=== PATIENT | female | born 1975 | race Caucasian/White ===

== ENCOUNTER → 2016-11-07 | Outpatient (CLI) | payer BC ==
[~2016-11-07] MED LIST: E-Z-PAQUE 96% w/w SUSP 176GM BTL As Ordered ONE; VARIBAR NECTAR 40% w/v 240ML SUSP BTL As Ordered ONE; VARIBAR PUDDING 40% w/v 230ML TUBE As Ordered ONE
--- NOTE | 2016-11-07 12:25 | REP ---
COOKIE SWALLOW: The procedure was performed under the direct supervision of Dr. Ramos. The procedure was performed with Romi Carvalho from speech pathology present. 5 mL aliquots of nectar, pudding, solid, and thin consistency barium was administrated. There is no evidence of penetration or aspiration. A detailed report of this examination will be provided by speech pathology. 44 seconds of fluoroscopy time was utilized for this procedure. Reviewed by ERICA New 11/07/2016 12:54 PEdited and Signed by Raad Ramos MD 11/07/2016 03:28 P
== END ==
LOC: M ST 07:54
PROVIDERS: ATTEND Internal Medicine
DX: R13.10 Dysphagia, unspecified (principal)
CPT/HCPCS: 74230; 92611; G8996; G8997; G8998

== ENCOUNTER → 2016-11-09 | Outpatient (CLI) | payer OTHER ==
--- NOTE | 2016-11-09 15:23 | REP ---
Chest two views HISTORY: Preoperative Comparison: 11/11/2015 The lungs are clear. The heart is normal in size. The pulmonary vasculature is normal in appearance. The bony structure is intact. IMPRESSION: No acute disease. Signed by Tyrone Gonzalez MD 11/09/2016 03:15 P
[2016-11-09 18:01] LABS: BASO % 0.3 % (0.0-1.0); EOS # 0.1 K/mm3 (0.0-0.50); EOS % 1.8 % (0.0-3.0); LARGE UNSTAINED CELL # 0.2 K/mm3 (0.0-0.4); LARGE UNSTAINED CELL % 3.1 % (0.0-4.0); LYMPH # 2.2 K/mm3 (1.5-4.5); LYMPH % 32.2 % (24.0-44.0); MEAN CORPUSCULAR HEMOGLOBIN 28.5 pg (27.0-33.0); MEAN CORPUSCULAR HGB CONC 33.6 g/dl (32.0-36.5); MEAN CORPUSCULAR VOLUME 84.8 fl (80.0-96.0); MONO # 0.4 K/mm3 (0.0-0.8); MONO % 6.2 % (0.0-5.0); NEUTROPHILS # 3.8 K/mm3 (1.8-7.7); NEUTROPHILS % 56.4 % (36.0-66.0); PLATELET COUNT, AUTOMATED 249 k/mm3 (150-450); RED CELL DISTRIBUTION WIDTH 13.1 % (11.5-14.5); WHITE BLOOD COUNT 6.7 K/mm3 (4.0-10.0)
[2016-11-09 18:08] LABS: ALBUMIN 3.7 GM/DL (3.2-5.2); ALKALINE PHOSPHATASE 93 U/L (45-117); ALT/SGPT 28 U/L (12-78); ANION GAP 10 MEQ/L (8-16); AST/SGOT 23 U/L (15-37); BILIRUBIN,TOTAL 0.7 MG/DL (0.2-1.0); BLOOD UREA NITROGEN 10 MG/DL (7-18); CALCIUM LEVEL 8.7 MG/DL (8.5-10.1); CARBON DIOXIDE LEVEL 27 MEQ/L (21-32); CHLORIDE LEVEL 105 MEQ/L (98-107); CREATININE FOR GFR 0.77 MG/DL (0.55-1.02); GLOMERULAR FILTRATION RATE > 60.0 (>58); GLUCOSE, FASTING 139 MG/DL (70-105); POTASSIUM SERUM 3.7 MEQ/L (3.5-5.1); SODIUM LEVEL 142 MEQ/L (136-145); TOTAL PROTEIN 7.4 GM/DL (6.4-8.2)
[2016-11-09 18:39] LABS: INR 0.95
== END ==
LOC: M LRY 14:05
PROVIDERS: ATTEND Family Medicine
DX: Z01.818 Encounter for other preprocedural examination (principal); R07.89 Other chest pain

== ENCOUNTER → 2017-04-10 | Outpatient (REF) | payer OTHER ==
[2017-04-10 11:49] LABS: BASO % 0.5 % (0.0-1.0); EOS # 0.2 K/mm3 (0.0-0.50); EOS % 2.9 % (0.0-3.0); LARGE UNSTAINED CELL # 0.1 K/mm3 (0.0-0.4); LARGE UNSTAINED CELL % 1.9 % (0.0-4.0); LYMPH # 1.7 K/mm3 (1.5-4.5); LYMPH % 28.9 % (24.0-44.0); MEAN CORPUSCULAR HEMOGLOBIN 29.3 pg (27.0-33.0); MEAN CORPUSCULAR HGB CONC 34.5 g/dl (32.0-36.5); MONO # 0.4 K/mm3 (0.0-0.8); MONO % 7.3 % (0.0-5.0); NEUTROPHILS # 3.3 K/mm3 (1.8-7.7); NEUTROPHILS % 58.6 % (36.0-66.0); PLATELET COUNT, AUTOMATED 211 k/mm3 (150-450); RED CELL DISTRIBUTION WIDTH 13.3 % (11.5-14.5); WHITE BLOOD COUNT 5.6 K/mm3 (4.0-10.0)
[2017-04-10 12:56] LABS: ERYTHROCYTE SEDIMENTATION RATE 22 mm/hr (0-20)
== END ==
LOC: M LABDRAW1 11:32
PROVIDERS: ATTEND Orthopaedic Surgery
DX: M75.01 Adhesive capsulitis of right shoulder (principal)

== ENCOUNTER → 2017-08-09 | Outpatient (CLI) | payer OTHER ==
[2017-08-09 12:58] LABS: BASO % 0.6 % (0.0-1.0); EOS # 0.2 10^3/uL (0.0-0.50); EOS % 3.5 % (0.0-3.0); IMMATURE GRANULOCYTE % 0.2 % (0-0); LYMPH # 1.6 10^3/uL (1.5-4.5); LYMPH % 32.2 % (24.0-44.0); MEAN CORPUSCULAR HEMOGLOBIN 28.2 pg (27.0-33.0); MEAN CORPUSCULAR HGB CONC 33.2 g/dl (32.0-36.5); MEAN CORPUSCULAR VOLUME 84.9 fl (80.0-96.0); MONO # 0.4 10^3/uL (0.0-0.8); MONO % 9.1 % (0.0-5.0); NEUTROPHILS # 2.6 10^3/uL (1.8-7.7); NEUTROPHILS % 54.4 % (36.0-66.0); PLATELET COUNT, AUTOMATED 244 10^3/uL (150-450); RED CELL DISTRIBUTION WIDTH 12.6 % (11.5-14.5); WHITE BLOOD COUNT 4.8 10^3/uL (4.0-10.0)
[2017-08-09 13:50] LABS: ERYTHROCYTE SEDIMENTATION RATE 13 mm/hr (0-20)
== END ==
LOC: M LABDRAW1 11:54
PROVIDERS: ATTEND Orthopaedic Surgery
DX: M75.01 Adhesive capsulitis of right shoulder (principal)

== ENCOUNTER 2018-05-07 10:22 | Day surgery (SDC) | payer OTHER ==
[2018-05-07] MEDS: LR 1,000 ML IV ×2 (11:53)
[2018-05-07] MEDS ORDERED: fentaNYL 100 MCG/2 ML INJECTION (J3010) As Ordered ×4 (12:31→12:37)
[2018-05-07] MEDS ORDERED: MIDAZOLAM INJ 2 MG/2 ML VIAL (J2250) As Ordered ×4 (12:31→12:37)
[2018-05-07] MEDS ORDERED: LIDOCAINE 2% INJ 100 MG/5 ML SDV (FOR ANES.) As Ordered ×2 (12:32)
[2018-05-07] MEDS ORDERED: PROPOFOL 200 MG/20 ML VIAL As Ordered ×2 (12:32)
[2018-05-07] MEDS ORDERED: ROCURONIUM BROMIDE 50 MG/5 ML VIAL As Ordered ×2 (12:32)
[2018-05-07] MEDS: MIDAZOLAM INJ 2 MG/2 ML VIAL (J2250) IV ×4 (13:16→13:20)
[2018-05-07] MEDS: fentaNYL 100 MCG/2 ML INJECTION (J3010) IV ×4 (13:16→13:20)
[2018-05-07] MEDS: EPINEPHrine 1MG/ML INJ 30ML MD-VIAL As Ordered ×2 (14:00)
[2018-05-07] MEDS ORDERED: METOCLOPRAMIDE INJ 10MG/2ML VIAL (J2765) As Ordered ×2 (14:20)
[2018-05-07] MEDS ORDERED: ONDANSETRON 4MG/2ML VIAL (J2405) As Ordered ×4 (14:20→15:20)
[2018-05-07] MEDS ORDERED: dexameTHASONE 4 MG/ML 1ML VIAL (J1100) As Ordered ×2 (14:20)
[2018-05-07] MEDS ORDERED: PHENYLephrine HCL 500 MCG/5 ML (100MCG/ML) SYRINGE (J2370) As Ordered ×2 (14:21)
[2018-05-07] MEDS ORDERED: ePHEDrine SULFATE 25 MG/5 ML(5MG/ML) SYRINGE As Ordered ×2 (14:38)
[2018-05-07] MEDS ORDERED: GLYCOPYRROLATE INJ 0.2 MG/ML 2 ML VIAL As Ordered ×2 (14:59)
[2018-05-07] MEDS ORDERED: NEOSTIGMINE 10 MG/10 ML VIAL (J2710) As Ordered ×2 (14:59)
[2018-05-07] MEDS ORDERED: LR 1,000 ML IV ×2 (15:45)
[2018-05-07] MEDS ORDERED: MORPHINE 4 MG/ML 1ML VIAL/SYRINGE (J2270) IV ×2 (15:45)
[2018-05-07] MEDS ORDERED: NORCO, ANEXSIA 5/325MG TABLET (HYDROcodone/ACETAMINOPHEN) PO ×4 (15:45)
[2018-05-07] MEDS ORDERED: ONDANSETRON 4MG/2ML VIAL (J2405) IV ×2 (16:00)
[2018-05-07] MEDS ORDERED: HYDROMORPHONE HCL 0.5 MG/ 0.5 ML SYRINGE (J1170 PER 1) IV ×4 (16:00→16:15)
== END 2018-05-07 17:35 | disposition home or self-care (01) ==
LOC: M SDC 10:22
DX: M75.01 Adhesive capsulitis of right shoulder (principal); M25.711 Osteophyte, right shoulder (principal); M25.811 Other specified joint disorders, right shoulder; I10 Essential (primary) hypertension; E03.9 Hypothyroidism, unspecified; K20.0 Eosinophilic esophagitis; K21.9 Gastro-esophageal reflux disease without esophagitis; R06.02 Shortness of breath; M12.9 Arthropathy, unspecified; M54.2 Cervicalgia; G43.909 Migraine, unspecified, not intractable, without status migrainosus; R06.83 Snoring; E66.9 Obesity, unspecified; Z68.41 Body mass index [BMI] 40.0-44.9, adult; Z88.5 Allergy status to narcotic agent; Z79.899 Other long term (current) drug therapy; Z86.718 Personal history of other venous thrombosis and embolism; Z90.710 Acquired absence of both cervix and uterus
CPT/HCPCS: 23700

== ENCOUNTER → 2018-11-08 | Outpatient (CLI) | payer OTHER, BC ==
[~2018-11-08] MED LIST changes: -E-Z-PAQUE 96% w/w SUSP 176GM BTL As Ordered ONE; +IBUP-1022 PO; +LEVO100T5 PO; +LEVO88TA3 PO; +METO50TA9 PO; +OMEP40CA2 PO; -VARIBAR NECTAR 40% w/v 240ML SUSP BTL As Ordered ONE; -VARIBAR PUDDING 40% w/v 230ML TUBE As Ordered ONE
--- NOTE | 2018-11-25 01:06 | ECWPNPC ---
PATIENT NAME: SHARAD HARPER : 1975 GENDER: FEMALE VISIT DATE: 11/08/2018 DISCHARGE DATE: 11/08/18 1557 VISIT LOCKED DATE TIME: PHYSICIAN: WALDO IBARRA MD RESOURCE: WALDO IBARRA MD REASON FOR APPOINTMENT 1. W/C (R) SHOULDER HISTORY OF PRESENT ILLNESS HISTORY OF PRESENT ILLNESS: PAIN THE PATIENT DESCRIBES THE PAIN... 43 YEAR OLD FEMALE PATIENT WITH A HISTORY OF CHRONIC RIGHT SHOULDER PAIN. THE PATIENT DESCRIBES THE PAIN ACHING, TENDER, SORE, AND CONTINUOUS WITH A PAIN SCORE OF 8-10/10 DEPENDING ON PHYSICAL ACTIVITY. 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 THE PATIENT SAYS SHE WORKED FOR 2 WEEKS FOLLOWING THE INCIDENT, BUT THEN WAS UNABLE TO CONTINUE DUE TO THE INJURY. THE PATIENT TRIED PHYSICAL THERAPY, BUT SAYS IT DID NOT HELP HER. THE PATIENT HAD SURGERY IN NOVEMBER 2016 AND AGAIN IN APRIL 2018, BUT SAYS HER PAIN PERSISTED. THE PATIENT SAYS THAT SHE HAS EXTREME DIFFICULTIES MOVING HER ARM. THE PATIENT SAYS THAT SHE HAS DIFFICULTY SLEEPING AND HAS TO SLEEP IN A RECLINER DUE TO THIS PAIN. THE PATIENT STATES SHE WAS TAKING HYDROCODONE TO AID IN PAIN RELIEF, BUT IT DID NOT HELP MUCH. PATIENT DENIES UNEXPLAINABLE WEIGHT LOSS, FEVER, CHILLS, NEW CHANGES ON HER URINARY OR BOWEL CONTROL. FALL RISK SCREENING: SCREENING : NO FALLS IN THE PAST YEAR. CURRENT MEDICATIONS TAKING METOPROLOL-HYDROCHLOROTHIAZIDE 50-25 MG TABLET 1 TABLET WITH A MEAL ORALLY ONCE A DAY TAKING LEVOTHYROXINE SODIUM 150 MCG TABLET 1 TABLET ON AN EMPTY STOMACH IN THE MORNING ORALLY ONCE A DAY TAKING OMEPRAZOLE 40 MG CAPSULE DELAYED RELEASE 1 CAPSULE ORALLY BID TAKING CARAFATE 1 GM TABLET 1 TABLET ON AN EMPTY STOMACH ORALLY DAILY TAKING IBU 600 MG TABLET 1 TABLET ORALLY DAILY/PRN NOT-TAKING FUROSEMIDE 20 MG TABLET 1 TABLET ORALLY ONCE A DAY NOT-TAKING DIVALPROEX SODIUM 250 MG TABLET DELAYED RELEASE 1 TABLET ORALLY TWICE A DAY NOT-TAKING CIPRO 500 MG TABLET 1 TABLET 1 HOUR PRIOR TO YOUR PROCEDURE ORALLY ONCE MEDICATION LIST REVIEWED AND RECONCILED WITH THE PATIENT PAST MEDICAL HISTORY SHINGLES MIGRAINE HEADACHES OBESITY ESOPHAGEAL REFLUX HYPOTHYROIDISM OVARIAN CYSTS HYPERLIPIDEMIA ABDOMINAL PAIN ESOPHAGEAL REFLUX HEMATURIA UTI ATYPICAL CP NAUSEA VOMITING BLOOD CLOTS AND KNICKED AORTA WITH HEMORRHAGE WITH C-SECION EOSINOPHILIC ESOPHAGITIS ALLERGIES AUGMENTIN: RASH: ALLERGY OXYCONTIN: SHORTNESS OF BREATH: ALLERGY OXYCODONE HCL: ANAPHYLAXIS: ALLERGY SURGICAL HISTORY ENDOMETRIOSIS -3X ADHESIONS , 12 POLYPS REMOVED ENDOSCOPY 1998 2011 COLONOSCOPY 2012 HYSTERECTOMY 2011 LEFT BUNIONECTOMY 1098 CHOLECYSTECTOMY 2013 ANAL FISURE RIGHT SHOULDER NERVE BLOCK, LAPROSCOPIC REPAIR, CLEANING AND REPAIR 2018 & 2018 FAMILY HISTORY FATHER: ALIVE 65 YRS, DIABETES, DIAGNOSED WITH DIABETES, HYPERTENSION MOTHER: 64 YRS, BREAST CANCER, DIAGNOSED WITH DIABETES, HYPERTENSION, CANCER PATERNAL GRAND FATHER: PATERNAL GRAND MOTHER: 75 YRS, ALZHEIMER'S DEMENTIA MATERNAL GRAND FATHER: ALIVE MATERNAL GRAND MOTHER: 72 YRS, HEART ATTACK 2 BROTHER(S) , 1 SISTER(S) . 2 SON(S) , 1 DAUGHTER(S) . SOCIAL HISTORY GENERAL: TOBACCO USE ARE YOU A:NONSMOKER ARE YOU A:NONSMOKER BMI CARE GOAL FOLLOW-UP ABOVE NORMAL BMI FOLLOW-UPDIETARY MANAGEMENT EDUCATION, GUIDANCE, AND COUNSELING ABOVE NORMAL BMI FOLLOW-UPDIETARY MANAGEMENT EDUCATION, GUIDANCE, AND COUNSELING ALCOHOL SCREENING POINTS: 0, INTERPRETATION: NEGATIVE. RECREATIONAL DRUG USE DENIES. CAFFEINE 1-2/DAY. SEXUAL HX HAD SEX IN THE LAST 12 MONTHS (VAGINAL, ORAL, OR ANAL)?: YES, WITH: MEN ONLY, USE PROTECTION?: NO, HAVE YOU EVER HAD AN STD?: NO. CHURCH NO ALEVISM BELIEFS THAT WOULD IMPACT HEALTH CARE. LANGUAGE UGANDAN. LEARNING BARRIERS / SPECIAL NEEDS CHANGE FROM LAST VISIT?NO BARRIERS TO LEARNING?NO HEARING IMPAIRED?NO VISION IMPAIRED?NO COGNITIVELY IMPAIRED?NO READINESS TO LEARN?YES LEARNING PREFERENCES?NO LEARNING CAPABILITIES PRESENT?YES EMOTIONAL BARRIERS?NO SPECIAL DEVICES?NO SITE DAMAGE PREVENTION TECHNICIAN NEEDED?NO CHANGE FROM LAST VISIT?NO BARRIERS TO LEARNING?NO HEARING IMPAIRED?NO VISION IMPAIRED?NO COGNITIVELY IMPAIRED?NO READINESS TO LEARN?YES LEARNING PREFERENCES?NO LEARNING CAPABILITIES PRESENT?YES EMOTIONAL BARRIERS?NO SPECIAL DEVICES?NO SITE DAMAGE PREVENTION TECHNICIAN NEEDED?NO DOMESTIC VIOLENCE NONE. OCCUPATION: [employer]. DIET: REGULAR. EXERCISE: NO REGULAR EXERCISE. MARITAL STATUS: SINGLE, .. NEW PATIENT PAIN DIARY PATIENT DESCRIBES PAIN :ACHING FROM 0-10, WHAT LEVEL IS YOUR PAIN TODAY?8 PRECIPITATING FACTORS CONSTANT PAIN, TENDER TO TOUCH, DIFFICULTY WITH MOVEMENT, POSITIONING CAUSES PAIN ALLEVIATING FACTORS NOTHING IMPACT ON FUNCTION UNABLE TO USE RIGHT ARM IS THERE A CHANCE YOU COULD BE ?NO HAVE YOU BEEN SICK IN THE LAST WEEK (COLD, COUGH, FEVER, FLU, ETC)YES CURRENT ILLNESS, DIARRHEA AND NAUSEA DO YOU TAKE ANY BLOOD THINNERS?NO DO YOU HAVE ANY RASHES OR OPEN SORES?NO ANY CHANGE IN BOWEL OR BLADDER CONTROL?NO ARE YOU ALLERGIC TO SHELLFISH OR IV DYE?NO ARE YOU DIABETIC?NO DO YOU HAVE A PACEMAKER OR DEFIBRILLATOR?NO ANY NEW PROBLEMS WITH MEDICINES OR NEW ALLERGIESNO ANY NEW PATTERNS OF PAIN OR NUMBNESS?NO ANY CHANGE IN YOUR MEDICAL CONDITION?NO HAVE YOU FALLEN IN THE LAST 6 MONTHS?NO DO YOU USE ANY TYPE OF TOBACCO (SMOKE, SMOKELESS, CHEW, ETC.)NO ARE YOU ABUSED, NEGLECTED, OR IN AN UNSAFE ENVIRONMENT?NO DO YOU HAVE THOUGHTS OF HURTING YOURSELF OR SOMEONE ELSE?NO DO YOU NEED ANY PRESCRIPTIONS?YES PAIN CLINIC PFS, CLERGY, PUBLIC HEALTH REFERRALS WAS THE PROVIDER NOTIFIED OF ANY PERTINENT INFO?YES HAS THE PATIENT BEEN EDUCATED REGARDING HIS/HER PLAN OF CARE?YES HAS THE PATIENT BEEN EDUCATED REGARDING PAIN, THE RISK FOR PAIN, THE IMPORTANCE OF EFFECTIVE PAIN MANAGEMENT, AND THE PAIN ASSESSMENT PROCESS?YES ORIENTED TO PMC ADVANCE DIRECTIVE ADVANCE DIRECTIVE DISCUSSED WITH PATIENT:YES PT DECLINES ANY INFORMATION OR ASSISTANCE AT THIS TIME. DS HOSPITALIZATION/MAJOR DIAGNOSTIC PROCEDURE ABOVE [place]UN[place] & BRANDIE REVIEW OF SYSTEMS REVIEWED BY: PROVIDER: WALDO IBARRA MD . CONSTITUTIONAL: ANY CHANGE IN YOUR MEDICAL CONDITION? NO . CHILLS NO . FEVER NO . INFECTION: DO YOU HAVE NEW INFECTIONS? NO . DO YOU HAVE HISTORY OF MRSA? NO . MUSCULOSKELETAL: ANY NEW PATTERNS OF PAIN OR NUMBNESS? NO . GASTROENTEROLOGY: ANY NEW CHANGE IN BOWEL CONTROL? NO . GENITOURINARY: ANY NEW CHANGE IN BLADDER CONTROL? NO . IS THERE A CHANCE YOU COULD BE ? NO . HEMATOLOGY/LYMPH: DO YOU TAKE ANY BLOOD THINNERS? (FOR EXAMPLE- COUMADIN, PLAVIX, AGGRENOX, PLATEL, PRADAXA, OR XARELTO) NO . WHEN WAS YOUR LAST DOSE? DATE: TIME: . NEUROLOGY: HAVE YOU FALLEN IN THE PAST 12 MONTHS? NO . ANY NEW EXTREMITY NUMBNESS OR WEAKNESS? NO . CARDIOLOGY: DO YOU HAVE A PACEMAKER OR DEFIBRILLATOR? NO . RESPIRATORY: HAVE YOU BEEN SICK IN THE PAST WEEK? NO . FEVER NO . FLU LIKE SYMPTOMS? NO . COUGH NO . INTEGUMENTARY: DO YOU HAVE ANY RASHES OR OPEN SORES? NO . ALLERGIC/IMMUNO: ARE YOU ALLERGIC TO IV DYE? NO . ANY NEW ALLERGIES? NO . PSYCHIATRIC: DO YOU HAVE THOUGHTS OF HURTING YOURSELF OR SOMEONE ELSE? NO . ARE YOU ABUSED, NEGLECTED, OR IN AN UNSAFE ENVIRONMENT? NO . ENDOCRINOLOGY: ARE YOU DIABETIC? NO . OTHER: DO YOU NEED ANY PRESCRIPTIONS? NO . IF YES, PLEASE LIST: ____ . ANY NEW PROBLEMS WITH YOUR MEDICATIONS? NO . WHEN DID YOU LAST EAT? ____ . WHEN DID YOU LAST DRINK? ____ . WHAT DID YOU LAST DRINK? ____ . NAME OF PERSON DRIVING YOU HOME? ____ . DO YOU HAVE ANY OTHER QUESTIONS OR CONCERNS NO . VITAL SIGNS WT 252 LBS, HT 5'3'', BMI 44.63 INDEX, BP 146/85 MM HG, HR 121 /MIN, RR 18 /MIN, TEMP 98.2 F, OXYGEN SAT % 96%, SAFE IN ENV? (Y/N) Y, NA INITIALS NE 13:31, REVIEWED BY: ZENA. EXAMINATION GENERAL EXAMINATION: PATIENT IS ALERT O X 3 AND COOPERATIVE. LUNGS CLEAR, TO AUSCULTATION. HEART: NO MURMURS OR GALLOPS; FACIAL CRANIAL NERVES ARE GROSSLY NORMAL. GOOD SYMMETRY OF FACIAL MUSCLE MOVEMENT. NORMAL VISUAL BYRD. TENDERNESS OVER THE RIGHT SHOULDER AREA. PATIENT CAN ABDUCT THE LEFT ARM WITHOUT DIFFICULTY, BUT IS UNABLE TO ABDUCT THE RIGHT ARM. SWELLING OVER THE RIGHT ARM. RIGHT ARM IS WEAKER AT EXTENSION AND FLEXION. HAND BANK REPRESENTATIVE OVER THE RIGHT SIDE IS REDUCED. X-RAY OF THE RIGHT SHOULDER DONE ON 04/10/2017 SHOWS STATUS POST A DISTAL CLAVICLE EXCISION. 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 HARPER'S PAIN MANAGEMENT CASE. I WOULD LIKE THE PATIENT TO START USING IBUPROFEN 800MG AND GABAPENTIN 100MG 3 TABLETS PER DAY FOR THE NEUROPATHIC PAIN. I WOULD LIKE TO GET THE RESULTS OF THE PATIENT'S RIGHT SHOULDER MRI. THE PATIENT WILL CONSIDER A STELLATE GANGLION BLOCK IN THE FUTURE. THE PATIENT WILL FOLLOW UP IN 6 WEEKS. INSTRUCTIONS WERE GIVEN, QUESTIONS WERE ANSWERED, PATIENT REPORTS UNDERSTANDING AND AGREES WITH THE PLAN. I, SHARAD DOUGLAS, DOCUMENTED THE ABOVE INFORMATION ACTING A SCRIBE FOR DR. IBARRA. I HAVE REVIEWED THE ABOVE DOCUMENT, WRITTEN BY SHARAD HERNÁNDEZ AND I VERIFY THAT IT IS ACCURATE. DEAR DR. ZAMORANO:THANK YOU FOR YOUR KIND REFERRAL OF MRS. HARPER. IF YOU WANT TO DISCUSS HER CASE WITH ME PLEASE CALL ME AT THE PAIN CENTER AT [phone]. SINCERELY,WALDO IBARRA, [facility]. OTHERS START GABAPENTIN CAPSULE, 100 MG, 1 CAPSULE, ORALLY FOR PAIN, THREE TIMES A DAY, 30 DAY(S), 90, REFILLS 1 START IBUPROFEN TABLET, 800 MG, 1 TABLET WITH FOOD OR MILK NEEDED, ORALLY FOR PAIN, EVERY 8 HOURS NEEDED, 30 DAY(S), 50, REFILLS 1 PROCEDURES PN WORKMANS' COMP OPINION IN YOUR OPINION, WAS THE INCIDENT THAT THE PATIENT DESCRIBED THE COMPETENT MEDICAL CAUSE OF THIS INJURY/ILLNESS? YES ARE THE PATIENT'S COMPLAINTS CONSISTENT WITH HIS/HER HISTORY OF THE INJURY/ILLNESS? YES IS THE PATIENT'S HISTORY OF THE INJURY/ILLNESS CONSISTENT WITH YOUR OBJECTIVE FINDING? YES WHAT IS THE PERCENTAGE OF TEMPORARY IMPAIRMENT? MODERATE TO MARKED = 66.7% IS THE PATIENT WORKING? NO DOCTOR ON SITE: WALDO CHÁVEZ MD PREVENTIVE MEDICINE PAIN CLINIC TEACHING: MEDICATIONS MEDICATIONS PRINTOUTS GIVEN AND REVIEWED WITH PT, PT VERBALIZES UNDERSTANDING. 11/08/18 1600 LAS. PROCEDURE CODES FA211 ESTABILISHED PATIENT [facility] FACILITY CHARGE G8427 CURRENT MEDS W/DOSAGES DOCUMENTED G8730 PAIN ASSESS POS TOOL F/U PLAN DOC DISPOSITION & COMMUNICATION FOLLOW UP 6 WEEKS ELECTRONICALLY SIGNED BY WALDO IBARRA MD, MD ON 11/24/2018 AT 01:54 PM EST DISCLAIMER : THIS IS A VISIT SUMMARY EXTRACTED FROM THE [employer] CHART. IT IS NOT A COPY OF THE [employer] PROGRESS NOTE. ARACELI
== END ==
LOC: M PAIN 13:30
PROVIDERS: ATTEND Anesthesiology
DX: G89.29 Other chronic pain (principal); M25.511 Pain in right shoulder; M79.2 Neuralgia and neuritis, unspecified; Z98.890 Other specified postprocedural states; G43.909 Migraine, unspecified, not intractable, without status migrainosus; E66.9 Obesity, unspecified; Z68.41 Body mass index [BMI] 40.0-44.9, adult; K21.9 Gastro-esophageal reflux disease without esophagitis; E03.9 Hypothyroidism, unspecified; E78.5 Hyperlipidemia, unspecified; Z79.899 Other long term (current) drug therapy; Z88.1 Allergy status to other antibiotic agents; Z88.5 Allergy status to narcotic agent

== ENCOUNTER → 2018-12-30 | Outpatient (CLI) | payer OTHER ==
--- NOTE | 2019-01-16 00:54 | ECWPNPC ---
PATIENT NAME: SHARAD HARPER : 1975 GENDER: FEMALE VISIT DATE: 12/30/2018 DISCHARGE DATE: 12/30/18 1220 VISIT LOCKED DATE TIME: PHYSICIAN: WALDO IBARRA MD RESOURCE: WALDO IBARRA MD REASON FOR APPOINTMENT 1. W/C RIGHT SHOULDER HISTORY OF PRESENT ILLNESS HISTORY OF PRESENT ILLNESS: PAIN THE PATIENT DESCRIBES THE PAIN... 43 YEAR OLD FEMALE PATIENT WITH A HISTORY OF CHRONIC RIGHT SHOULDER PAIN. THE PATIENT DESCRIBES THE PAIN ACHING, BURNING, SORE, TENDER, SHARP, STABBING, SHOOTING, AND CONTINUOUS WITH A PAIN SCORE OF 7-10/10 DEPENDING ON PHYSICAL ACTIVITY. 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 THE PATIENT SAYS THE PAIN STARTS IN HER RIGHT SHOULDER AND RADIATES DOWN HER RIGHT ARM. THE PATIENT WAS USING 2 TABLETS OF GABAPENTIN, BUT SAYS THAT IT WAS MAKING HER FEEL DIZZY AND SLEEPY. THE PATIENT IS CURRENTLY USING IBUPROFEN TO AID IN PAIN RELIEF, BUT SAYS IT HAS NOT BEEN HELPING. THE PATIENT HAS TRIED USING CYMBALTA IN THE PAST, BUT REPORTS HAVING ADVERSE SIDE EFFECTS FROM IT. PATIENT DENIES UNEXPLAINABLE WEIGHT LOSS, FEVER, CHILLS, NEW CHANGES ON HER URINARY OR BOWEL CONTROL. FALL RISK SCREENING: SCREENING :NO FALLS REPORTED IN THE LAST YEAR CURRENT MEDICATIONS TAKING GABAPENTIN 100 MG CAPSULE 1 CAPSULE ORALLY FOR PAIN THREE TIMES A DAY, NOTES: HAS BEEN TAKING 2 A DAY BEFORE BED TAKING IBUPROFEN 800 MG TABLET 1 TABLET WITH FOOD OR MILK NEEDED ORALLY FOR PAIN EVERY 8 HOURS NEEDED TAKING METOPROLOL-HYDROCHLOROTHIAZIDE 50-25 MG TABLET 1 TABLET WITH A MEAL ORALLY ONCE A DAY TAKING LEVOTHYROXINE SODIUM 150 MCG TABLET 1 TABLET ON AN EMPTY STOMACH IN THE MORNING ORALLY ONCE A DAY TAKING OMEPRAZOLE 40 MG CAPSULE DELAYED RELEASE 1 CAPSULE ORALLY BID, NOTES: TAKES NEEDED TAKING CARAFATE 1 GM TABLET 1 TABLET ON AN EMPTY STOMACH ORALLY DAILY TAKING IBU 600 MG TABLET 1 TABLET ORALLY DAILY/PRN NOT-TAKING FUROSEMIDE 20 MG TABLET 1 TABLET ORALLY ONCE A DAY NOT-TAKING DIVALPROEX SODIUM 250 MG TABLET DELAYED RELEASE 1 TABLET ORALLY TWICE A DAY NOT-TAKING CIPRO 500 MG TABLET 1 TABLET 1 HOUR PRIOR TO YOUR PROCEDURE ORALLY ONCE MEDICATION LIST REVIEWED AND RECONCILED WITH THE PATIENT PAST MEDICAL HISTORY SHINGLES MIGRAINE HEADACHES OBESITY ESOPHAGEAL REFLUX HYPOTHYROIDISM OVARIAN CYSTS HYPERLIPIDEMIA ABDOMINAL PAIN ESOPHAGEAL REFLUX HEMATURIA UTI ATYPICAL CP NAUSEA VOMITING BLOOD CLOTS AND KNICKED AORTA WITH HEMORRHAGE WITH C-SECION EOSINOPHILIC ESOPHAGITIS ALLERGIES AUGMENTIN: RASH - ALLERGY OXYCONTIN: SHORTNESS OF BREATH - ALLERGY OXYCODONE HCL: ANAPHYLAXIS - ALLERGY SURGICAL HISTORY ENDOMETRIOSIS -3X ADHESIONS , 12 POLYPS REMOVED ENDOSCOPY 1998 2011 COLONOSCOPY 2012 HYSTERECTOMY 2011 LEFT BUNIONECTOMY 1098 CHOLECYSTECTOMY 2014 ANAL FISURE FAMILY HISTORY FATHER: ALIVE 65 YRS, DIABETES, DIAGNOSED WITH DIABETES, HYPERTENSION MOTHER: 64 YRS, BREAST CANCER, CANCER, DIABETES, HYPERTENSION PATERNAL GRAND FATHER: PATERNAL GRAND MOTHER: 75 YRS, ALZHEIMER'S DEMENTIA MATERNAL GRAND FATHER: ALIVE MATERNAL GRAND MOTHER: 72 YRS, HEART ATTACK 2 BROTHER(S) , 1 SISTER(S) . 2 SON(S) , 1 DAUGHTER(S) . SOCIAL HISTORY GENERAL: TOBACCO USE ARE YOU A:NONSMOKER LATEX QUESTIONNAIRE LATEX ALLERGY : HAVE YOU EVER DEVELOPED ANY TYPE OF REACTION AFTER HANDLING LATEX PRODUCTS SUCH RUBBER GLOVES, CONDOMS, DIAPHRAGMS, BALLOONS, SOCKS, OR UNDERWEAR?NO LATEX ALLERGY : HAVE YOU EVER DEVELOPED ANY TYPE OF REACTION DURING OR AFTER DENTAL APPOINTMENT, VAGINAL/RECTAL EXAMINATION, SURGICAL PROCEDURE, OR ANY OTHER EXPOSURE?NO LATEX RISK : HAVE YOU EVER HAD ANY DIFFICULTY BREATHING OR HIVES AFTER EATING OR HANDLING ANY FRUITS, OR VEGETABLES; SUCH KIWI, BANANAS, STONE FRUITS, OR CHESTNUTSNO LATEX RISK : DO YOU HAVE A PREVIOUS PERSONAL HISTORY OF MORE THAN NINE SURGERIES, SPINA BIFIDA, OR REPEATED CATHERTIZATIONS? NO LATEX RISK : ARE YOU FREQUENTLY EXPOSED TO LATEX PRODUCTS IN YOUR OCCUPATION?NO DATE ASKED : 12/30/2018 BMI CARE GOAL FOLLOW-UP ABOVE NORMAL BMI FOLLOW-UPDIETARY MANAGEMENT EDUCATION, GUIDANCE, AND COUNSELING ALCOHOL SCREENING POINTS: 0, INTERPRETATION: NEGATIVE. RECREATIONAL DRUG USE DENIES. CAFFEINE 1-2/DAY. SEXUAL HX HAD SEX IN THE LAST 12 MONTHS (VAGINAL, ORAL, OR ANAL)?: YES, WITH: MEN ONLY, USE PROTECTION?: NO, HAVE YOU EVER HAD AN STD?: NO. RESTORATIONISM NO EPISCOPAL BELIEFS THAT WOULD IMPACT HEALTH CARE. LANGUAGE PAKISTANI. LEARNING BARRIERS / SPECIAL NEEDS CHANGE FROM LAST VISIT?NO BARRIERS TO LEARNING?NO HEARING IMPAIRED?NO VISION IMPAIRED?NO COGNITIVELY IMPAIRED?NO READINESS TO LEARN?YES LEARNING PREFERENCES?NO LEARNING CAPABILITIES PRESENT?YES EMOTIONAL BARRIERS?NO SPECIAL DEVICES?NO SYSTEMS LIBRARIAN NEEDED?NO DOMESTIC VIOLENCE NONE. OCCUPATION: [employer]. DIET: REGULAR. EXERCISE: NO REGULAR EXERCISE. MARITAL STATUS: SINGLE, .. PAIN CLINIC PFS, CLERGY, PUBLIC HEALTH REFERRALS WAS THE PROVIDER NOTIFIED OF ANY PERTINENT INFO?YES HAS THE PATIENT BEEN EDUCATED REGARDING HIS/HER PLAN OF CARE?YES HAS THE PATIENT BEEN EDUCATED REGARDING PAIN, THE RISK FOR PAIN, THE IMPORTANCE OF EFFECTIVE PAIN MANAGEMENT, AND THE PAIN ASSESSMENT PROCESS?YES ORIENTED TO PMC ADVANCE DIRECTIVE ADVANCE DIRECTIVE DISCUSSED WITH PATIENT:YES PT DECLINES ANY INFORMATION OR ASSISTANCE AT THIS TIME. 12/30/18 REVIEWED WITH PT 12/30/18 1041 BV. HOSPITALIZATION/MAJOR DIAGNOSTIC PROCEDURE ABOVE [place] & [place] REVIEW OF SYSTEMS REVIEWED BY: PROVIDER: WALDO IBARRA MD . CONSTITUTIONAL: ANY CHANGE IN YOUR MEDICAL CONDITION? NO . CHILLS NO . FEVER NO . INFECTION: DO YOU HAVE NEW INFECTIONS? NO . DO YOU HAVE HISTORY OF MRSA? NO . MUSCULOSKELETAL: ANY NEW PATTERNS OF PAIN OR NUMBNESS? NO . GASTROENTEROLOGY: ANY NEW CHANGE IN BOWEL CONTROL? NO . GENITOURINARY: ANY NEW CHANGE IN BLADDER CONTROL? NO . IS THERE A CHANCE YOU COULD BE ? NO . HEMATOLOGY/LYMPH: DO YOU TAKE ANY BLOOD THINNERS? (FOR EXAMPLE- COUMADIN, PLAVIX, AGGRENOX, PLATEL, PRADAXA, OR XARELTO) NO . WHEN WAS YOUR LAST DOSE? DATE: TIME: . NEUROLOGY: HAVE YOU FALLEN IN THE PAST 12 MONTHS? NO . ANY NEW EXTREMITY NUMBNESS OR WEAKNESS? NO . CARDIOLOGY: DO YOU HAVE A PACEMAKER OR DEFIBRILLATOR? NO . RESPIRATORY: HAVE YOU BEEN SICK IN THE PAST WEEK? NO . FEVER NO . FLU LIKE SYMPTOMS? NO . COUGH NO . INTEGUMENTARY: DO YOU HAVE ANY RASHES OR OPEN SORES? NO . ALLERGIC/IMMUNO: ARE YOU ALLERGIC TO IV DYE? NO . ANY NEW ALLERGIES? NO . PSYCHIATRIC: DO YOU HAVE THOUGHTS OF HURTING YOURSELF OR SOMEONE ELSE? NO . ARE YOU ABUSED, NEGLECTED, OR IN AN UNSAFE ENVIRONMENT? NO . ENDOCRINOLOGY: ARE YOU DIABETIC? NO . OTHER: DO YOU NEED ANY PRESCRIPTIONS? YES, GABAPENTIN . IF YES, PLEASE LIST: ____ . ANY NEW PROBLEMS WITH YOUR MEDICATIONS? NO . WHEN DID YOU LAST EAT? ____ . WHEN DID YOU LAST DRINK? ____ . WHAT DID YOU LAST DRINK? ____ . NAME OF PERSON DRIVING YOU HOME? ____ . DO YOU HAVE ANY OTHER QUESTIONS OR CONCERNS YES, PT STATES SINCE STARTING THE GABAPENTIN, SHE HAS HAS NOTICED INCREASED FATIGUE THAT LASTS THE WHOLE DAY. . VITAL SIGNS WT 255.8 LBS, HT 5'3'', BMI 45.31 INDEX, BP 136/64 MM HG, HR 72 /MIN, RR 18 /MIN, TEMP 98.7 F, OXYGEN SAT % 97%, NA INITIALS SC 10:27, REVIEWED BY: BV. EXAMINATION GENERAL EXAMINATION: PATIENT IS ALERT O X 3 AND COOPERATIVE. TENDERNESS OVER THE RIGHT SHOULDER. PATIENT CAN ABDUCT THE RIGHT ARM TO 15 DEGREES. HAND COMMUNITY COORDINATOR OVER THE RIGHT SIDE IS REDUCED. RIGHT ARM IS WEAKER AT EXTENSION AND FLEXION. 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 HARPER'S PAIN MANAGEMENT CASE. I WILL DECREASE THE PATIENT'S GABAPENTIN TO ONE TABLET AT NIGHT FOR THE NEUROPATHIC PAIN. THE PATIENT WILL START USING DICLOFENAC IN PLACE OF THE IBUPROFEN BECAUSE SHE SAYS IT HAS NOT BEEN HELPING HER. I WILL SEND THE PROVIDER TO PROVIDER AGREEMENT TO THE PATIENT'S PRIMARY CARE IN REGARDS TO PRESCRIBING NARCOTICS. THE PATIENT EXPRESSED INTEREST IN A DCS TRIAL, SO I WILL REQUEST A PSYCHOLOGICAL EVALUATION. THE PATIENT WILL FOLLOW UP IN 6 WEEKS. I WAS WITH THE PATIENT FOR OVER 25 MINUTES AND MORE THAN HALF OF THE TIME WAS SPENT DISCUSSING THE PATIENT'S OPTIONS FOR MEDICATION MANAGEMENT AND A POSSIBLE DCS TRIAL. INSTRUCTIONS WERE GIVEN, QUESTIONS WERE ANSWERED, PATIENT REPORTS UNDERSTANDING AND AGREES WITH THE PLAN. I, SHARAD DOUGLAS, DOCUMENTED THE ABOVE INFORMATION ACTING A SCRIBE FOR DR. BIARRA. I HAVE REVIEWED THE ABOVE DOCUMENT, WRITTEN BY SHARAD HERNÁNDEZ AND I VERIFY THAT IT IS ACCURATE. . OTHERS START DICLOFENAC SODIUM TABLET DELAYED RELEASE, 75 MG, 1 TABLET WITH FOOD OR MILK, ORALLY PRN FOR PAIN, TWICE A DAY MDD2, 30 DAY(S), 60, REFILLS 1 PROCEDURES PN WORKMANS' COMP OPINION IN YOUR OPINION, WAS THE INCIDENT THAT THE PATIENT DESCRIBED THE COMPETENT MEDICAL CAUSE OF THIS INJURY/ILLNESS? YES ARE THE PATIENT'S COMPLAINTS CONSISTENT WITH HIS/HER HISTORY OF THE INJURY/ILLNESS? YES IS THE PATIENT'S HISTORY OF THE INJURY/ILLNESS CONSISTENT WITH YOUR OBJECTIVE FINDING? YES WHAT IS THE PERCENTAGE OF TEMPORARY IMPAIRMENT? MODERATE TO MARKED = 66.7% IS THE PATIENT WORKING? NO DOCTOR ON SITE: WALDO CHÁVEZ MD PREVENTIVE MEDICINE PAIN CLINIC TEACHING: MEDICATIONS PRINTED AND REVIEWED INFORMATION ON NEW MEDICATION, DICLOFENAC, WITH PATIENT. PATIENT VERBALIZED AN UNDERSTANDING. RAVI BLANCO 12/30/2018 12:20:08 PM > . PROCEDURE CODES FA211 ESTABILISHED PATIENT [facility] CHARGE G8427 CURRENT MEDS W/DOSAGES DOCUMENTED G8730 PAIN ASSESS POS TOOL F/U PLAN DOC DISPOSITION & COMMUNICATION FOLLOW UP 6 WEEKS ELECTRONICALLY SIGNED BY WALDO IBARRA MD, MD ON 01/14/2019 AT 01:44 PM EDT DISCLAIMER : THIS IS A VISIT SUMMARY EXTRACTED FROM THE [email or web address] CHART. IT IS NOT A COPY OF THE [employer] PROGRESS NOTE. [email or web address]
== END ==
LOC: M PAIN 10:00
PROVIDERS: ATTEND Anesthesiology
DX: M25.511 Pain in right shoulder (principal); G89.29 Other chronic pain; M79.2 Neuralgia and neuritis, unspecified; G43.909 Migraine, unspecified, not intractable, without status migrainosus; K21.9 Gastro-esophageal reflux disease without esophagitis; E03.9 Hypothyroidism, unspecified; E78.5 Hyperlipidemia, unspecified; E66.01 Morbid (severe) obesity due to excess calories; Z68.42 Body mass index [BMI] 45.0-49.9, adult; Z79.899 Other long term (current) drug therapy; Z88.1 Allergy status to other antibiotic agents; Z88.5 Allergy status to narcotic agent

== ENCOUNTER → 2019-03-10 | Outpatient (CLI) | payer OTHER ==
--- NOTE | 2019-03-15 00:34 | ECWPNPC ---
PATIENT NAME: SHARAD HARPER : 1975 GENDER: FEMALE VISIT DATE: 03/10/2019 DISCHARGE DATE: 03/10/19 1132 VISIT LOCKED DATE TIME: PHYSICIAN: WALDO IBARRA MD RESOURCE: WALDO IBARRA MD REASON FOR APPOINTMENT 1. W/C RIGHT SHOULDER PAIN, DCS HISTORY OF PRESENT ILLNESS HISTORY OF PRESENT ILLNESS: 43 YEAR OLD FEMALE PATIENT WITH A HISTORY OF CHRONIC RIGHT SHOULDER PAIN. THE PATIENT DESCRIBES THE PAIN ACHING, BURNING, STABBING, SHOOTING, SORE, TENDER, SHARP, AND CONTINUOUS WITH A PAIN SCORE OF 8-10/10 DEPENDING ON PHYSICAL ACTIVITY. 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 THE PATIENT STATES THE PAIN BEGINS IN HER RIGHT SHOULDER AND RADIATES DOWN HER RIGHT ARM AND SHE STILL EXPERIENCES NUMBNESS DOWN THE BACK OF HER ARM. THE PATIENT SAYS THE PAIN IS AFFECTING HER ABILITY TO PERFORM HER DAILY ACTIVITIES SUCH COOKING, GROCERY SHOPPING, AND CLEANING HER HOUSE. THE PATIENT STATES SHE HAS TRIED PHYSICAL THERAPY FOR 4 YEARS, HAS TRIED A TENS UNIT, AND HAS HAD 2 SHOULDER SURGERIES IN THE PAST, HOWEVER ALL OPTIONS DID NOT HELP HER. THE PATIENT HAS TRIED CYMBALTA, WHICH SHE SAYS WAS NOT GOOD FOR HER. THE PATIENT SAYS SHE USES GABAPENTIN 100 MG 3 TABLETS DAILY, HOWEVER SHE IS EXPERIENCING GROGGINESS DURING THE DAY. THE PATIENT SAYS SHE USES IBUPROFEN IT HELPS TAKE THE EDGE OFF FOR HER HEADACHES. PATIENT DENIES UNEXPLAINABLE WEIGHT LOSS, FEVER, CHILLS, NEW CHANGES ON HER URINARY OR BOWEL CONTROL. FALL RISK SCREENING: SCREENING :NO FALLS REPORTED IN THE LAST YEAR CURRENT MEDICATIONS TAKING DICLOFENAC SODIUM 75 MG TABLET DELAYED RELEASE 1 TABLET WITH FOOD OR MILK ORALLY PRN FOR PAIN TWICE A DAY MDD2 TAKING IBUPROFEN 800 MG TABLET 1 TABLET WITH FOOD OR MILK NEEDED ORALLY FOR PAIN EVERY 8 HOURS NEEDED TAKING METOPROLOL-HYDROCHLOROTHIAZIDE 50-25 MG TABLET 1 TABLET WITH A MEAL ORALLY ONCE A DAY TAKING LEVOTHYROXINE SODIUM 150 MCG TABLET 1 TABLET ON AN EMPTY STOMACH IN THE MORNING ORALLY ONCE A DAY TAKING OMEPRAZOLE 40 MG CAPSULE DELAYED RELEASE 1 CAPSULE ORALLY BID, NOTES: TAKES NEEDED TAKING CARAFATE 1 GM TABLET 1 TABLET ON AN EMPTY STOMACH ORALLY DAILY TAKING GABAPENTIN 100 MG CAPSULE 1 CAPSULE ORALLY FOR PAIN THREE TIMES A DAY, NOTES: TAKING DAILY NOT-TAKING IBU 600 MG TABLET 1 TABLET ORALLY DAILY/PRN NOT-TAKING FUROSEMIDE 20 MG TABLET 1 TABLET ORALLY ONCE A DAY NOT-TAKING DIVALPROEX SODIUM 250 MG TABLET DELAYED RELEASE 1 TABLET ORALLY TWICE A DAY NOT-TAKING CIPRO 500 MG TABLET 1 TABLET 1 HOUR PRIOR TO YOUR PROCEDURE ORALLY ONCE MEDICATION LIST REVIEWED AND RECONCILED WITH THE PATIENT PAST MEDICAL HISTORY SHINGLES MIGRAINE HEADACHES OBESITY ESOPHAGEAL REFLUX HYPOTHYROIDISM OVARIAN CYSTS HYPERLIPIDEMIA ABDOMINAL PAIN ESOPHAGEAL REFLUX HEMATURIA UTI ATYPICAL CP NAUSEA VOMITING BLOOD CLOTS AND KNICKED AORTA WITH HEMORRHAGE WITH C-SECION EOSINOPHILIC ESOPHAGITIS ALLERGIES AUGMENTIN: RASH - ALLERGY OXYCONTIN: SHORTNESS OF BREATH - ALLERGY OXYCODONE HCL: ANAPHYLAXIS - ALLERGY SURGICAL HISTORY ENDOMETRIOSIS -3X ADHESIONS , 12 POLYPS REMOVED ENDOSCOPY 1998 2011 COLONOSCOPY 2012 HYSTERECTOMY 2011 LEFT BUNIONECTOMY 1098 CHOLECYSTECTOMY 2013 ANAL FISURE FAMILY HISTORY FATHER: ALIVE 65 YRS, DIABETES, DIAGNOSED WITH HYPERTENSION, DIABETES MOTHER: 64 YRS, BREAST CANCER, CANCER, DIABETES, HYPERTENSION PATERNAL GRAND FATHER: PATERNAL GRAND MOTHER: 75 YRS, ALZHEIMER'S DEMENTIA MATERNAL GRAND FATHER: ALIVE MATERNAL GRAND MOTHER: 72 YRS, HEART ATTACK 2 BROTHER(S) , 1 SISTER(S) . 2 SON(S) , 1 DAUGHTER(S) . SOCIAL HISTORY GENERAL: TOBACCO USE ARE YOU A:NONSMOKER DIET: REGULAR. LANGUAGE CITIZEN OF [place]. DOMESTIC VIOLENCE NONE. BMI CARE GOAL FOLLOW-UP ABOVE NORMAL BMI FOLLOW-UPDIETARY MANAGEMENT EDUCATION, GUIDANCE, AND COUNSELING RECREATIONAL DRUG USE DENIES. EXERCISE: NO REGULAR EXERCISE. LEARNING BARRIERS / SPECIAL NEEDS CHANGE FROM LAST VISIT?NO BARRIERS TO LEARNING?NO HEARING IMPAIRED?NO VISION IMPAIRED?NO COGNITIVELY IMPAIRED?NO READINESS TO LEARN?YES LEARNING PREFERENCES?NO LEARNING CAPABILITIES PRESENT?YES EMOTIONAL BARRIERS?NO SPECIAL DEVICES?NO JANITORIAL ACCOUNT MANAGER NEEDED?NO PAIN CLINIC PFS, CLERGY, PUBLIC HEALTH REFERRALS WAS THE PROVIDER NOTIFIED OF ANY PERTINENT INFO?YES HAS THE PATIENT BEEN EDUCATED REGARDING HIS/HER PLAN OF CARE?YES HAS THE PATIENT BEEN EDUCATED REGARDING PAIN, THE RISK FOR PAIN, THE IMPORTANCE OF EFFECTIVE PAIN MANAGEMENT, AND THE PAIN ASSESSMENT PROCESS?YES ORIENTED TO [facility] LATEX QUESTIONNAIRE LATEX ALLERGY : HAVE YOU EVER DEVELOPED ANY TYPE OF REACTION AFTER HANDLING LATEX PRODUCTS SUCH RUBBER GLOVES, CONDOMS, DIAPHRAGMS, BALLOONS, SOCKS, OR UNDERWEAR?NO LATEX ALLERGY : HAVE YOU EVER DEVELOPED ANY TYPE OF REACTION DURING OR AFTER DENTAL APPOINTMENT, VAGINAL/RECTAL EXAMINATION, SURGICAL PROCEDURE, OR ANY OTHER EXPOSURE?NO DATE ASKED : 12/30/2018 LATEX RISK : HAVE YOU EVER HAD ANY DIFFICULTY BREATHING OR HIVES AFTER EATING OR HANDLING ANY FRUITS, OR VEGETABLES; SUCH KIWI, BANANAS, STONE FRUITS, OR CHESTNUTSNO LATEX RISK : DO YOU HAVE A PREVIOUS PERSONAL HISTORY OF MORE THAN NINE SURGERIES, SPINA BIFIDA, OR REPEATED CATHERTIZATIONS? NO LATEX RISK : ARE YOU FREQUENTLY EXPOSED TO LATEX PRODUCTS IN YOUR OCCUPATION?NO CAFFEINE 1-2/DAY. ADVANCE DIRECTIVE ADVANCE DIRECTIVE DISCUSSED WITH PATIENT:YES PT DECLINES ANY INFORMATION OR ASSISTANCE AT THIS TIME 03/09/2019 EPISCOPAL NO SAMARITAN BELIEFS THAT WOULD IMPACT HEALTH CARE. MARITAL STATUS: SINGLE, .. ALCOHOL SCREENING POINTS: 0, INTERPRETATION: NEGATIVE. OCCUPATION: [employer] IN[employer]. SEXUAL HX HAD SEX IN THE LAST 12 MONTHS (VAGINAL, ORAL, OR ANAL)?: YES, WITH: MEN ONLY, USE PROTECTION?: NO, HAVE YOU EVER HAD AN STD?: NO. REVIEWED WITH PT 03/12/2019 NM. HOSPITALIZATION/MAJOR DIAGNOSTIC PROCEDURE ABOVE [place] REVIEW OF SYSTEMS REVIEWED BY: PROVIDER: WALDO IBARRA MD . CONSTITUTIONAL: ANY CHANGE IN YOUR MEDICAL CONDITION? NO . CHILLS NO . FEVER NO . INFECTION: DO YOU HAVE NEW INFECTIONS? NO . DO YOU HAVE HISTORY OF MRSA? NO . MUSCULOSKELETAL: ANY NEW PATTERNS OF PAIN OR NUMBNESS? NO . GASTROENTEROLOGY: ANY NEW CHANGE IN BOWEL CONTROL? NO . GENITOURINARY: ANY NEW CHANGE IN BLADDER CONTROL? NO . IS THERE A CHANCE YOU COULD BE ? NO . HEMATOLOGY/LYMPH: DO YOU TAKE ANY BLOOD THINNERS? (FOR EXAMPLE- COUMADIN, PLAVIX, AGGRENOX, PLATEL, PRADAXA, OR XARELTO) NO . WHEN WAS YOUR LAST DOSE? DATE: TIME: . NEUROLOGY: HAVE YOU FALLEN IN THE PAST 12 MONTHS? NO . ANY NEW EXTREMITY NUMBNESS OR WEAKNESS? NO . CARDIOLOGY: DO YOU HAVE A PACEMAKER OR DEFIBRILLATOR? NO . RESPIRATORY: HAVE YOU BEEN SICK IN THE PAST WEEK? NO . FEVER NO . FLU LIKE SYMPTOMS? NO . COUGH NO . INTEGUMENTARY: DO YOU HAVE ANY RASHES OR OPEN SORES? NO . ALLERGIC/IMMUNO: ARE YOU ALLERGIC TO IV DYE? NO . ANY NEW ALLERGIES? NO . PSYCHIATRIC: DO YOU HAVE THOUGHTS OF HURTING YOURSELF OR SOMEONE ELSE? NO . ARE YOU ABUSED, NEGLECTED, OR IN AN UNSAFE ENVIRONMENT? NO . ENDOCRINOLOGY: ARE YOU DIABETIC? NO . OTHER: DO YOU NEED ANY PRESCRIPTIONS? NO . IF YES, PLEASE LIST: ____ . ANY NEW PROBLEMS WITH YOUR MEDICATIONS? NO . WHEN DID YOU LAST EAT? ____ . WHEN DID YOU LAST DRINK? ____ . WHAT DID YOU LAST DRINK? ____ . NAME OF PERSON DRIVING YOU HOME? ____ . DO YOU HAVE ANY OTHER QUESTIONS OR CONCERNS YES, PATIENT NEEDS DOCUMENTATION SPECIFYING HOW AND WHY A DCS WOULD HELP HER SHOULDER PAIN AND BENEFIT HER. IT ALSO NEEDS THE DOCUMENTATION TO EXPLAIN THAT THE PHYSCH EVAL, MRI, ETC ARE ALL MANDATORY PARTS OF THE DCS PROCESS . VITAL SIGNS WT 250.8 LBS, HT 5'3'', BMI 44.42 INDEX, BP 145/66 MM HG, HR 87 /MIN, RR 18 /MIN, TEMP 98.2 F, OXYGEN SAT % 96%, SAFE IN ENV? (Y/N) YES, NA INITIALS AW 0946, REVIEWED BY: MARY JO. EXAMINATION GENERAL EXAMINATION: PATIENT IS ALERT O X 3 AND COOPERATIVE. PATIENT CANNOT ABDUCT RIGHT SHOULDER, BUT NO DIFFICULTY ABDUCTING LEFT SHOULDER. HYPERPATHIA OVER THE RIGHT SHOULDER. 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 HARPER'S PAIN MANAGEMENT CASE. DUE TO THE UNSUCCESSFUL ATTEMPTS OF RELIEVING THE PATIENT'S RIGHT SHOULDER AND ARM PAIN THROUGH PHYSICAL THERAPY, TWO SHOULDER SURGERIES, AND NUMEROUS MEDICATIONS, I WOULD LIKE THE PATIENT TO MOVE FORWARD WITH A DCS TRIAL. I WOULD LIKE TO PERFORM THE DCS TRIAL TO DETERMINE IF THE IMPLANT WILL BE A GOOD TREATMENT OPTION FOR TREATING THE PATIENTS PAIN IN HER RIGHT SHOULDER. I FEEL THAT THE PATIENT WILL BE A GOOD CANDIDATE FOR THE DCS IMPLANT. IN ORDER TO PROCEED WITH THE TRIAL, THE PATIENT WILL NEED TO HAVE A PSYCHOLOGICAL EVALUATION DONE TO MAKE SURE SHE IS A GOOD CANDIDATE AND CAN TOLERATE AN IMPLANTED DEVICE. I AM REQUESTING THAT THE PATIENT HAVE A PSYCHOLOGICAL EVALUATION DONE FIRST TO START THE PROCESS OF THE DCS TRIAL. AFTER THE PSYCHOLOGICAL EVALUATION IS DONE AND THE PATIENT IS A CANDIDATE TO CONTINUE WITH THE DCS TRIAL, THE PATIENT WILL NEED TO HAVE A CERVICAL, THORACIC, AND LUMBAR MRI PERFORMED TO MAKE SURE THERE IS ADEQUATE SPACE FOR THE DCS CABLES TO PASS THROUGH. THE PATIENT WILL FOLLOW UP IN 2 MONTHS TO REVIEW THE PSYCHOLOGICAL EVALUATION RESULTS AND PROCEED WITH THE NEXT STEPS OF THE DCS TRIAL REQUIREMENTS. INSTRUCTIONS WERE GIVEN, QUESTIONS WERE ANSWERED, PATIENT REPORTS UNDERSTANDING AND AGREES WITH THE PLAN. I, URSULA VELÁSQUEZ, DOCUMENTED THE ABOVE INFORMATION ACTING A SCRIBE FOR DR. IBARRA. I HAVE REVIEWED THE ABOVE DOCUMENT, WRITTEN BY URSULA VELÁSQUEZ SCRIBPepe AND I VERIFY THAT IT IS ACCURATE. . PROCEDURES PN WORKMANS' COMP OPINION IN YOUR OPINION, WAS THE INCIDENT THAT THE PATIENT DESCRIBED THE COMPETENT MEDICAL CAUSE OF THIS INJURY/ILLNESS? YES ARE THE PATIENT'S COMPLAINTS CONSISTENT WITH HIS/HER HISTORY OF THE INJURY/ILLNESS? YES IS THE PATIENT'S HISTORY OF THE INJURY/ILLNESS CONSISTENT WITH YOUR OBJECTIVE FINDING? YES WHAT IS THE PERCENTAGE OF TEMPORARY IMPAIRMENT? MODERATE TO MARKED = 66.7% IS THE PATIENT WORKING? NO DOCTOR ON SITE: WALDO CHÁVEZ MD PROCEDURE CODES FA211 ESTABILISHED PATIENT [facility] FACILITY CHARGE G8427 CURRENT MEDS W/DOSAGES DOCUMENTED G8730 PAIN ASSESS POS TOOL F/U PLAN DOC DISPOSITION & COMMUNICATION FOLLOW UP 2 MONTHS (REASON: DCS TRIAL RQSTING) ELECTRONICALLY SIGNED BY WALDO IBARRA MD, MD ON 03/14/2019 AT 04:43 PM EDT DISCLAIMER : THIS IS A VISIT SUMMARY EXTRACTED FROM THE [employer] CHART. IT IS NOT A COPY OF THE [employer] PROGRESS NOTE. ARACELI
== END ==
LOC: M PAIN 10:15
PROVIDERS: ATTEND Anesthesiology
DX: M25.511 Pain in right shoulder (principal); G89.29 Other chronic pain; M79.2 Neuralgia and neuritis, unspecified; Z79.899 Other long term (current) drug therapy; Z88.5 Allergy status to narcotic agent; Z88.8 Allergy status to other drugs, medicaments and biological substances

== ENCOUNTER → 2019-04-28 | Outpatient (CLI) | payer OTHER ==
--- NOTE | 2019-05-07 01:29 | ECWPNPC ---
PATIENT NAME: SHARAD HARPER : 1975 GENDER: FEMALE VISIT DATE: 04/28/2019 DISCHARGE DATE: 04/28/19 1622 VISIT LOCKED DATE TIME: PHYSICIAN: WALDO IBARRA MD RESOURCE: WALDO IBARRA MD REASON FOR APPOINTMENT 1. 2 MONTHS HISTORY OF PRESENT ILLNESS HISTORY OF PRESENT ILLNESS: PAIN THE PATIENT DESCRIBES THE PAIN... 43 YEAR OLD FEMALE PATIENT WITH A HISTORY OF CHRONIC RIGHT SHOULDER PAIN. THE PATIENT DESCRIBES THE PAIN ACHING, BURNING, STABBING, SHOOTING, SHARP, SORE, TENDER, DAILY, AND CONTINUOUS WITH A PAIN SCORE OF 8-10/10 DEPENDING ON PHYSICAL ACTIVITY. 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 THE PATIENT STATES SHE EXPERIENCED PAIN, SWELLING, AND NUMBNESS DOWN HER ARM AND COULD NOT BEND HER FINGERS AFTER HER SHOULDER INJURY. THE PATIENT STATES HER PAIN BEGINS IN HER RIGHT SHOULDER AND RADIATES DOWN HER RIGHT ARM. THE PATIENT SAYS HER SHOULDER PAIN IS VERY PAINFUL AND SHE OFTEN CRIES OUT IN PAIN. THE PATIENT SAYS HER PAIN IS AFFECTING HER ABILITY TO PERFORM HER DAILY ACTIVITIES SUCH CLEANING, GROCERY SHOPPING, COOKING, AND USING HER RIGHT ARM. THE PATIENT SAYS SHE HAS TRIED PHYSICAL THERAPY AND HAD 2 SHOULDER SURGERIES DONE IN THE PAST, YET THE PAIN PERSISTS. THE PATIENT STATES SHE IS USING GABAPENTIN 100 MG 1 TABLET AT NIGHT, BECAUSE SHE CANNOT FUNCTION WITH A HIGHER DOSE DURING THE DAY. THE PATIENT SAYS SHE HAS TRIED DICLOFENAC 75 MG, BUT IT DID NOT HELP WITH HER PAIN SO SHE IS NOW BACK TO USING IBUPROFEN. THE PATIENT MENTIONS SHE HAS A HISTORY OF EOSINOPHILIC ESOPHAGITIS. PATIENT DENIES UNEXPLAINABLE WEIGHT LOSS, FEVER, CHILLS. PATIENT REPORTS PRESENT URINARY AND BOWEL INCONTINENCE FOR OVER 1 YEAR. FALL RISK SCREENING: SCREENING :NO FALLS REPORTED IN THE LAST YEAR CURRENT MEDICATIONS TAKING DICLOFENAC SODIUM 75 MG TABLET DELAYED RELEASE 1 TABLET WITH FOOD OR MILK ORALLY PRN FOR PAIN TWICE A DAY MDD2 TAKING IBUPROFEN 800 MG TABLET 1 TABLET WITH FOOD OR MILK NEEDED ORALLY FOR PAIN EVERY 8 HOURS NEEDED TAKING METOPROLOL-HYDROCHLOROTHIAZIDE 50-25 MG TABLET 1 TABLET WITH A MEAL ORALLY ONCE A DAY TAKING LEVOTHYROXINE SODIUM 150 MCG TABLET 1 TABLET ON AN EMPTY STOMACH IN THE MORNING ORALLY ONCE A DAY TAKING GABAPENTIN 100 MG CAPSULE 1 CAPSULE ORALLY FOR PAIN ONCE A DAY AT NIGHT, NOTES: TAKING DAILY NOT-TAKING OMEPRAZOLE 40 MG CAPSULE DELAYED RELEASE 1 CAPSULE ORALLY BID, NOTES: TAKES NEEDED NOT-TAKING CARAFATE 1 GM TABLET 1 TABLET ON AN EMPTY STOMACH ORALLY DAILY NOT-TAKING IBU 600 MG TABLET 1 TABLET ORALLY DAILY/PRN NOT-TAKING FUROSEMIDE 20 MG TABLET 1 TABLET ORALLY ONCE A DAY NOT-TAKING DIVALPROEX SODIUM 250 MG TABLET DELAYED RELEASE 1 TABLET ORALLY TWICE A DAY NOT-TAKING CIPRO 500 MG TABLET 1 TABLET 1 HOUR PRIOR TO YOUR PROCEDURE ORALLY ONCE MEDICATION LIST REVIEWED AND RECONCILED WITH THE PATIENT PAST MEDICAL HISTORY SHINGLES MIGRAINE HEADACHES OBESITY ESOPHAGEAL REFLUX HYPOTHYROIDISM OVARIAN CYSTS HYPERLIPIDEMIA ABDOMINAL PAIN ESOPHAGEAL REFLUX HEMATURIA UTI ATYPICAL CP NAUSEA VOMITING BLOOD CLOTS AND KNICKED AORTA WITH HEMORRHAGE WITH C-SECION EOSINOPHILIC ESOPHAGITIS ALLERGIES AUGMENTIN: RASH - ALLERGY OXYCONTIN: SHORTNESS OF BREATH - ALLERGY OXYCODONE HCL: ANAPHYLAXIS - ALLERGY SURGICAL HISTORY ENDOMETRIOSIS -3X ADHESIONS , 12 POLYPS REMOVED ENDOSCOPY 1998 2011 COLONOSCOPY 2012 HYSTERECTOMY 2011 LEFT BUNIONECTOMY 1098 CHOLECYSTECTOMY 2013 ANAL FISSURE REPAIR OF NASAL FRACTURE 1986 FAMILY HISTORY FATHER: ALIVE 65 YRS, DIABETES, DIAGNOSED WITH DIABETES, HYPERTENSION MOTHER: 64 YRS, BREAST CANCER, CANCER, DIABETES, HYPERTENSION PATERNAL GRAND FATHER: PATERNAL GRAND MOTHER: 75 YRS, ALZHEIMER'S DEMENTIA MATERNAL GRAND FATHER: MATERNAL GRAND MOTHER: 72 YRS, HEART ATTACK 2 BROTHER(S) , 1 SISTER(S) - HEALTHY. 2 SON(S) , 1 DAUGHTER(S) - HEALTHY. SOCIAL HISTORY GENERAL: TOBACCO USE ARE YOU A:NONSMOKER DIET: REGULAR. LANGUAGE [place]. DOMESTIC VIOLENCE NONE. BMI CARE GOAL FOLLOW-UP ABOVE NORMAL BMI FOLLOW-UPDIETARY MANAGEMENT EDUCATION, GUIDANCE, AND COUNSELING RECREATIONAL DRUG USE DENIES. EXERCISE: NO REGULAR EXERCISE. 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?NO PAIN CLINIC PFS, CLERGY, PUBLIC HEALTH REFERRALS WAS THE PROVIDER NOTIFIED OF ANY PERTINENT INFO?YES HAS THE PATIENT BEEN EDUCATED REGARDING HIS/HER PLAN OF CARE?YES HAS THE PATIENT BEEN EDUCATED REGARDING PAIN, THE RISK FOR PAIN, THE IMPORTANCE OF EFFECTIVE PAIN MANAGEMENT, AND THE PAIN ASSESSMENT PROCESS?YES ORIENTED TO [facility] LATEX QUESTIONNAIRE LATEX ALLERGY : HAVE YOU EVER DEVELOPED ANY TYPE OF REACTION AFTER HANDLING LATEX PRODUCTS SUCH RUBBER GLOVES, CONDOMS, DIAPHRAGMS, BALLOONS, SOCKS, OR UNDERWEAR?NO LATEX ALLERGY : HAVE YOU EVER DEVELOPED ANY TYPE OF REACTION DURING OR AFTER DENTAL APPOINTMENT, VAGINAL/RECTAL EXAMINATION, SURGICAL PROCEDURE, OR ANY OTHER EXPOSURE?NO DATE ASKED : 12/30/2018 LATEX RISK : HAVE YOU EVER HAD ANY DIFFICULTY BREATHING OR HIVES AFTER EATING OR HANDLING ANY FRUITS, OR VEGETABLES; SUCH KIWI, BANANAS, STONE FRUITS, OR CHESTNUTSNO LATEX RISK : DO YOU HAVE A PREVIOUS PERSONAL HISTORY OF MORE THAN NINE SURGERIES, SPINA BIFIDA, OR REPEATED CATHERIZATIONS? NO LATEX RISK : ARE YOU FREQUENTLY EXPOSED TO LATEX PRODUCTS IN YOUR OCCUPATION?NO CAFFEINE 1-2/DAY. ADVANCE DIRECTIVE ADVANCE DIRECTIVE DISCUSSED WITH PATIENT:YES PT DECLINES ANY INFORMATION OR ASSISTANCE AT THIS TIME 03/09/2019 [id number] [id number] [place]RISTIANITY MARITAL STATUS: SINGLE, .. ALCOHOL SCREENING POINTS: 0, INTERPRETATION: NEGATIVE. OCCUPATION: [employer] - DISABLED. SEXUAL HX HAD SEX IN THE LAST 12 MONTHS (VAGINAL, ORAL, OR ANAL)?: YES, WITH: MEN ONLY, USE PROTECTION?: NO, HAVE YOU EVER HAD AN STD?: NO. REVIEWED WITH PT 03/12/2019 NM. HOSPITALIZATION/MAJOR DIAGNOSTIC PROCEDURE ABOVE [place] REVIEW OF SYSTEMS REVIEWED BY: PROVIDER: WALDO IBARRA MD . CONSTITUTIONAL: ANY CHANGE IN YOUR MEDICAL CONDITION? NO . CHILLS NO . FEVER NO . INFECTION: DO YOU HAVE NEW INFECTIONS? NO . DO YOU HAVE HISTORY OF MRSA? NO . MUSCULOSKELETAL: ANY NEW PATTERNS OF PAIN OR NUMBNESS? NO . GASTROENTEROLOGY: ANY NEW CHANGE IN BOWEL CONTROL? NO . GENITOURINARY: ANY NEW CHANGE IN BLADDER CONTROL? NO . IS THERE A CHANCE YOU COULD BE ? NO . HEMATOLOGY/LYMPH: DO YOU TAKE ANY BLOOD THINNERS? (FOR EXAMPLE- COUMADIN, PLAVIX, AGGRENOX, PLATEL, PRADAXA, OR XARELTO) NO . WHEN WAS YOUR LAST DOSE? DATE: TIME: . NEUROLOGY: HAVE YOU FALLEN IN THE PAST 12 MONTHS? NO . ANY NEW EXTREMITY NUMBNESS OR WEAKNESS? NO . CARDIOLOGY: DO YOU HAVE A PACEMAKER OR DEFIBRILLATOR? NO . RESPIRATORY: HAVE YOU BEEN SICK IN THE PAST WEEK? NO . FEVER NO . FLU LIKE SYMPTOMS? NO . COUGH NO . INTEGUMENTARY: DO YOU HAVE ANY RASHES OR OPEN SORES? NO . ALLERGIC/IMMUNO: ARE YOU ALLERGIC TO IV DYE? NO . ANY NEW ALLERGIES? NO . PSYCHIATRIC: DO YOU HAVE THOUGHTS OF HURTING YOURSELF OR SOMEONE ELSE? NO . ARE YOU ABUSED, NEGLECTED, OR IN AN UNSAFE ENVIRONMENT? NO . ENDOCRINOLOGY: ARE YOU DIABETIC? NO . OTHER: DO YOU NEED ANY PRESCRIPTIONS? NO . IF YES, PLEASE LIST: ____ . ANY NEW PROBLEMS WITH YOUR MEDICATIONS? NO . WHEN DID YOU LAST EAT? ____ . WHEN DID YOU LAST DRINK? ____ . WHAT DID YOU LAST DRINK? ____ . NAME OF PERSON DRIVING YOU HOME? ____ . DO YOU HAVE ANY OTHER QUESTIONS OR CONCERNS NO . VITAL SIGNS WT 249.2 LBS, HT 5'3'', BMI 44.14 INDEX, BP 129/60 MM HG, HR 88 /MIN, RR 18 /MIN, TEMP 97.8 F, OXYGEN SAT % 95%, NA INITIALS AW 1451, REVIEWED BY: HAYDEN. EXAMINATION GENERAL EXAMINATION: PATIENT IS ALERT O X 3 AND COOPERATIVE. PATIENT CAN ABDUCT LEFT ARM, BUT CANNOT MOVE RIGHT ARM DUE TO THE PAIN. HYPERPATHIA AND DECREASED STRENGTH OF RIGHT ARM. 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 SHIPYARD LABORER OF LEFT HAND IS ADEQUATE. SEVERE TENDERNESS OF THE RIGHT SHOULDER. SCAR TISSUE PRESENT ON RIGHT SHOULDER. MRI OF THE RIGHT SHOULDER DONE ON 04/24/2017 SHOWS TENDON TEARS OVER THE ROTATOR CUFF AND TENDINOSIS. ASSESSMENTS PAIN IN RIGHT SHOULDER - M25.511 (PRIMARY) URINARY INCONTINENCE, UNSPECIFIED TYPE - R32 INCONTINENCE OF FECES, UNSPECIFIED FECAL INCONTINENCE TYPE - R15.9 OTHER CHRONIC PAIN - G89.29 TREATMENT PAIN IN RIGHT SHOULDER CLINICAL NOTES: WE DISCUSSED SEVERAL ISSUES WITH MS. HARPER'S PAIN MANAGEMENT CASE. PATIENT MENTIONED THAT SHE HAS BEEN EXPERIENCING BOWEL AND URINARY INCONTINENCE FOR OVER A YEAR NOW, BUT IS NOT ASSOCIATED WITH AN INJURY. I ADVISED THE PATIENT TO DISCUSS ABOUT THIS CONDITION WITH HER PRIMARY CARE. I WILL CONTINUE TO REQUEST FOR A PSYCHOLOGICAL EVALUATION TO BE DONE ONE OF THE REQUIREMENTS FOR A SPINAL COLUMN STIMULATOR TRIAL. AFTER THE PSYCHOLOGICAL EVALUATION IS DONE, I WILL REQUEST FOR THE NEXT DCS TRIAL REQUIREMENT, WHICH IS TO ORDER FOR A CERVICAL AND THORACIC MRI TO BE PERFORMED. I AM REQUESTING FOR AN INTERFERENTIAL TENS UNIT TO HELP WITH THE PATIENT'S RIGHT SHOULDER PAIN. I WILL START THE PATIENT ON CELEBREX 200 MG 1 CAPSULE DAILY WITH FOOD TO HELP WITH THE PAIN. I ADVISED THE PATIENT NOT TO USE IBUPROFEN WITH THE CELEBREX. THE PATIENT UNDERSTANDS AND AGREES. THE PATIENT HAS TRIED DICLOFENAC, IBUPROFEN, AND CYMBALTA, HOWEVER THOSE MEDICATIONS DID NOT HELP WITH HER RIGHT SHOULDER PAIN. THE PATIENT HAS A HISTORY OF EOSINOPHILIC ESOPHAGITIS AND HAS HAD REACTIONS IN THE PAST. DUE TO THIS CONDITION, I ADVISED IT WILL BE SAFER AND BEST IF SHE TRIES ANY NEW MEDICATIONS IN THE PARKING LOT OF A HOSPITAL IN CASE SHE EXPERIENCES ANOTHER REACTION, THEREFORE SHE WILL BE WITHIN CLOSE PROXIMITY OF HELP. THE PATIENT UNDERSTANDS AND AGREES. THE PATIENT WILL FOLLOW UP IN 6 WEEKS. INSTRUCTIONS WERE GIVEN, QUESTIONS WERE ANSWERED, PATIENT REPORTS UNDERSTANDING AND AGREES WITH THE PLAN. I, URSULA VELÁSQUEZ, DOCUMENTED THE ABOVE INFORMATION ACTING A SCRIBE FOR DR. IBARRA. I HAVE REVIEWED THE ABOVE DOCUMENT, WRITTEN BY URSULA HACKETTIBPepe AND I VERIFY THAT IT IS ACCURATE. . OTHERS START CELECOXIB CAPSULE, 200 MG, 1 CAPSULE WITH FOOD, ORALLY FOR PAIN, ONCE A DAY, 30 DAY(S), 30, REFILLS 1 PROCEDURES PN WORKMANS' COMP OPINION IN YOUR OPINION, WAS THE INCIDENT THAT THE PATIENT DESCRIBED THE COMPETENT MEDICAL CAUSE OF THIS INJURY/ILLNESS? YES ARE THE PATIENT'S COMPLAINTS CONSISTENT WITH HIS/HER HISTORY OF THE INJURY/ILLNESS? YES IS THE PATIENT'S HISTORY OF THE INJURY/ILLNESS CONSISTENT WITH YOUR OBJECTIVE FINDING? YES WHAT IS THE PERCENTAGE OF TEMPORARY IMPAIRMENT? MODERATE TO MARKED = 66.7% IS THE PATIENT WORKING? NO DOCTOR ON SITE: WALDO CHÁVEZ MD PREVENTIVE MEDICINE PAIN CLINIC TEACHING: MEDICATIONS INFORMATIONAL HANDOUT FOR CELEBREX PRINTED AND REVIEWED WITH PT. PATIENT VERBALIZES UNDERSTANDING. LAS. PROCEDURE CODES FA211 ESTABILISHED PATIENT [facility] FACILITY CHARGE G8427 CURRENT MEDS W/DOSAGES DOCUMENTED G8730 PAIN ASSESS POS TOOL F/U PLAN DOC DISPOSITION & COMMUNICATION FOLLOW UP 6 WEEKS (REASON: MEDS) ELECTRONICALLY SIGNED BY WALDO IBARRA MD, MD ON 05/06/2019 AT 12:53 PM EDT DISCLAIMER : THIS IS A VISIT SUMMARY EXTRACTED FROM THE [employer] CHART. IT IS NOT A COPY OF THE [employer] PROGRESS NOTE. MTDD
== END ==
LOC: M PAIN 14:45
PROVIDERS: ATTEND Anesthesiology
DX: M25.511 Pain in right shoulder (principal); R32 Unspecified urinary incontinence; R15.9 Full incontinence of feces; G89.29 Other chronic pain; E03.9 Hypothyroidism, unspecified; Z79.899 Other long term (current) drug therapy; J30.2 Other seasonal allergic rhinitis; Z88.5 Allergy status to narcotic agent

== ENCOUNTER → 2019-06-13 | Outpatient (CLI) | payer OTHER ==
[~2019-06-13] MED LIST changes: -OMEP40CA2 PO; +OMEP40CA97 PO
--- NOTE | 2019-06-30 00:08 | ECWPNPC ---
PATIENT NAME: SHARAD HARPER : 1975 GENDER: FEMALE VISIT DATE: 06/13/2019 DISCHARGE DATE: 06/13/19 1111 VISIT LOCKED DATE TIME: PHYSICIAN: WALDO IBARRA MD RESOURCE: WALDO IBARRA MD REASON FOR APPOINTMENT 1. MEDS HISTORY OF PRESENT ILLNESS HISTORY OF PRESENT ILLNESS: PAIN THE PATIENT DESCRIBES THE PAIN... 43 YEAR OLD FEMALE PATIENT WITH A HISTORY OF CHRONIC RIGHT SHOULDER PAIN. THE PATIENT DESCRIBES THE PAIN ACHING, BURNING, SORE, TENDER, SHARP, STABBING, SHOOTING, DAILY, AND CONTINUOUS WITH A PAIN SCORE OF 8-10/10 DEPENDING ON PHYSICAL ACTIVITY. 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 THE PATIENT STATES SHE EXPERIENCED PAIN, SWELLING, AND NUMBNESS DOWN HER ARM AND SHE COULD NOT BEND HER FINGERS AFTER HER SHOULDER INJURY. THE PATIENT SAYS HER PAIN BEGINS IN HER RIGHT SHOULDER AND RADIATES DOWN HER RIGHT ARM. THE PATIENT STATES SHE HAS HAD TWO SHOULDER SURGERIES IN THE PAST, HOWEVER THE PAIN STILL PERSISTS. THE PATIENT SAYS THE PAIN IS AFFECTING HER ABILITY TO PERFORM HER DAILY ACTIVITIES SUCH GROCERY SHOPPING, CLEANING, COOKING, AND USING HER RIGHT ARM. THE PATIENT SAYS SHE IS USING GABAPENTIN 100 MG AT NIGHT TO AID IN PAIN RELIEF AND SHE ALSO STARTED CELEBREX 200 MG AFTER HER LAST VISIT, BUT SHE IS NOT SURE IF THE CELEBREX IS HELPING WITH HER PAIN. THE PATIENT SAYS SHE WOULD LIKE TO PURSUE A DCS TRIAL, BUT SHE IS STILL WAITING FOR INSURANCE APPROVAL TO GO TO HER PSYCHOLOGICAL EVALUATION. PATIENT DENIES UNEXPLAINABLE WEIGHT LOSS, FEVER, CHILLS, NEW CHANGES ON HER URINARY OR BOWEL CONTROL. FALL RISK SCREENING: SCREENING :NO FALLS REPORTED IN THE LAST YEAR CURRENT MEDICATIONS TAKING CELECOXIB 200 MG CAPSULE 1 CAPSULE WITH FOOD ORALLY FOR PAIN ONCE A DAY TAKING DICLOFENAC SODIUM 75 MG TABLET DELAYED RELEASE 1 TABLET WITH FOOD OR MILK ORALLY PRN FOR PAIN TWICE A DAY MDD2 TAKING METOPROLOL-HYDROCHLOROTHIAZIDE 50-25 MG TABLET 1 TABLET WITH A MEAL ORALLY ONCE A DAY TAKING LEVOTHYROXINE SODIUM 150 MCG TABLET 1 TABLET ON AN EMPTY STOMACH IN THE MORNING ORALLY ONCE A DAY TAKING GABAPENTIN 100 MG CAPSULE 1 CAPSULE ORALLY FOR PAIN ONCE A DAY AT NIGHT, NOTES: TAKING DAILY TAKING OMEPRAZOLE 40 MG CAPSULE DELAYED RELEASE 1 CAPSULE ORALLY BID, NOTES: TAKES NEEDED TAKING CARAFATE 1 GM TABLET 1 TABLET ON AN EMPTY STOMACH ORALLY DAILY NOT-TAKING IBUPROFEN 800 MG TABLET 1 TABLET WITH FOOD OR MILK NEEDED ORALLY FOR PAIN EVERY 8 HOURS NEEDED NOT-TAKING IBU 600 MG TABLET 1 TABLET ORALLY DAILY/PRN DISCONTINUED FUROSEMIDE 20 MG TABLET 1 TABLET ORALLY ONCE A DAY DISCONTINUED DIVALPROEX SODIUM 250 MG TABLET DELAYED RELEASE 1 TABLET ORALLY TWICE A DAY DISCONTINUED CIPRO 500 MG TABLET 1 TABLET 1 HOUR PRIOR TO YOUR PROCEDURE ORALLY ONCE MEDICATION LIST REVIEWED AND RECONCILED WITH THE PATIENT PAST MEDICAL HISTORY SHINGLES MIGRAINE HEADACHES OBESITY ESOPHAGEAL REFLUX HYPOTHYROIDISM OVARIAN CYSTS HYPERLIPIDEMIA ABDOMINAL PAIN ESOPHAGEAL REFLUX HEMATURIA UTI ATYPICAL CP NAUSEA VOMITING BLOOD CLOTS AND KNICKED AORTA WITH HEMORRHAGE WITH C-SECION EOSINOPHILIC ESOPHAGITIS ALLERGIES OXYCONTIN: SHORTNESS OF BREATH - ALLERGY OXYCODONE HCL: ANAPHYLAXIS - ALLERGY SURGICAL HISTORY ENDOMETRIOSIS -3X ADHESIONS , 12 POLYPS REMOVED ENDOSCOPY 1998 2011 COLONOSCOPY 2012 HYSTERECTOMY 2011 LEFT BUNIONECTOMY 1098 CHOLECYSTECTOMY 2013 ANAL FISSURE REPAIR OF NASAL FRACTURE 1985 FAMILY HISTORY FATHER: ALIVE 65 YRS, DIABETES, DIAGNOSED WITH DIABETES, HYPERTENSION MOTHER: 64 YRS, BREAST CANCER, DIABETES, HYPERTENSION, OTHER MALIGNANT NEOPLASM OF UNSPECIFIED SITE PATERNAL GRAND FATHER: PATERNAL GRAND MOTHER: 75 YRS, ALZHEIMER'S DEMENTIA MATERNAL GRAND FATHER: MATERNAL GRAND MOTHER: 72 YRS, HEART ATTACK 2 BROTHER(S) , 1 SISTER(S) - HEALTHY. 2 SON(S) , 1 DAUGHTER(S) - HEALTHY. SOCIAL HISTORY GENERAL: TOBACCO USE ARE YOU A:NONSMOKER OTHERS AT HOME: OTHER NON-RELATIVE, CHILDREN. DIET: REGULAR. LANGUAGE ITALIAN. DOMESTIC VIOLENCE NONE. BMI CARE GOAL FOLLOW-UP ABOVE NORMAL BMI FOLLOW-UPDIETARY MANAGEMENT EDUCATION, GUIDANCE, AND COUNSELING RECREATIONAL DRUG USE DENIES. EXERCISE: NO REGULAR EXERCISE. LEARNING BARRIERS / SPECIAL NEEDS CHANGE FROM LAST VISIT?NO BARRIERS TO LEARNING?NO HEARING IMPAIRED?NO VISION IMPAIRED?NO COGNITIVELY IMPAIRED?NO READINESS TO LEARN?YES LEARNING PREFERENCES?NO LEARNING CAPABILITIES PRESENT?YES EMOTIONAL BARRIERS?NO SPECIAL DEVICES?NO REDEYE GUNNER NEEDED?NO PAIN CLINIC PFS, CLERGY, PUBLIC HEALTH REFERRALS WAS THE PROVIDER NOTIFIED OF ANY PERTINENT INFO?YES HAS THE PATIENT BEEN EDUCATED REGARDING HIS/HER PLAN OF CARE?YES HAS THE PATIENT BEEN EDUCATED REGARDING PAIN, THE RISK FOR PAIN, THE IMPORTANCE OF EFFECTIVE PAIN MANAGEMENT, AND THE PAIN ASSESSMENT PROCESS?YES ORIENTED TO [facility] LATEX QUESTIONNAIRE LATEX ALLERGY : HAVE YOU EVER DEVELOPED ANY TYPE OF REACTION AFTER HANDLING LATEX PRODUCTS SUCH RUBBER GLOVES, CONDOMS, DIAPHRAGMS, BALLOONS, SOCKS, OR UNDERWEAR?NO LATEX ALLERGY : HAVE YOU EVER DEVELOPED ANY TYPE OF REACTION DURING OR AFTER DENTAL APPOINTMENT, VAGINAL/RECTAL EXAMINATION, SURGICAL PROCEDURE, OR ANY OTHER EXPOSURE?NO LATEX RISK : HAVE YOU EVER HAD ANY DIFFICULTY BREATHING OR HIVES AFTER EATING OR HANDLING ANY FRUITS, OR VEGETABLES; SUCH KIWI, BANANAS, STONE FRUITS, OR CHESTNUTSNO LATEX RISK : DO YOU HAVE A PREVIOUS PERSONAL HISTORY OF MORE THAN NINE SURGERIES, SPINA BIFIDA, OR REPEATED CATHERIZATIONS? NO LATEX RISK : ARE YOU FREQUENTLY EXPOSED TO LATEX PRODUCTS IN YOUR OCCUPATION?NO DATE ASKED : 06/13/2019 CAFFEINE 1-2/DAY. ADVANCE DIRECTIVE ADVANCE DIRECTIVE DISCUSSED WITH PATIENT:YES PT DECLINES ANY INFORMATION OR ASSISTANCE AT THIS TIME 03/09/2019 QUAKER [id number] ISLAM MARITAL STATUS: SINGLE, .. ALCOHOL SCREENING POINTS: 0, INTERPRETATION: NEGATIVE. OCCUPATION: [employer] - DISABLED. SEXUAL HX HAD SEX IN THE LAST 12 MONTHS (VAGINAL, ORAL, OR ANAL)?: YES, WITH: MEN ONLY, USE PROTECTION?: NO, HAVE YOU EVER HAD AN STD?: NO. REVIEWED WITH PT 03/12/2019 NM. HOSPITALIZATION/MAJOR DIAGNOSTIC PROCEDURE ABOVE [place] & [place] REVIEW OF SYSTEMS REVIEWED BY: PROVIDER: WALDO IBARRA MD . CONSTITUTIONAL: ANY CHANGE IN YOUR MEDICAL CONDITION? NO . CHILLS NO . FEVER NO . INFECTION: DO YOU HAVE NEW INFECTIONS? NO . DO YOU HAVE HISTORY OF MRSA? NO . MUSCULOSKELETAL: ANY NEW PATTERNS OF PAIN OR NUMBNESS? NO . GASTROENTEROLOGY: ANY NEW CHANGE IN BOWEL CONTROL? NO . GENITOURINARY: ANY NEW CHANGE IN BLADDER CONTROL? NO . IS THERE A CHANCE YOU COULD BE ? NO . HEMATOLOGY/LYMPH: DO YOU TAKE ANY BLOOD THINNERS? (FOR EXAMPLE- COUMADIN, PLAVIX, AGGRENOX, PLATEL, PRADAXA, OR XARELTO) NO . WHEN WAS YOUR LAST DOSE? DATE: TIME: . NEUROLOGY: HAVE YOU FALLEN IN THE PAST 12 MONTHS? NO . ANY NEW EXTREMITY NUMBNESS OR WEAKNESS? NO . CARDIOLOGY: DO YOU HAVE A PACEMAKER OR DEFIBRILLATOR? NO . RESPIRATORY: HAVE YOU BEEN SICK IN THE PAST WEEK? NO . FEVER NO . FLU LIKE SYMPTOMS? NO . COUGH NO . INTEGUMENTARY: DO YOU HAVE ANY RASHES OR OPEN SORES? NO . ALLERGIC/IMMUNO: ARE YOU ALLERGIC TO IV DYE? NO . ANY NEW ALLERGIES? NO . PSYCHIATRIC: DO YOU HAVE THOUGHTS OF HURTING YOURSELF OR SOMEONE ELSE? NO . ARE YOU ABUSED, NEGLECTED, OR IN AN UNSAFE ENVIRONMENT? NO . ENDOCRINOLOGY: ARE YOU DIABETIC? NO . OTHER: DO YOU NEED ANY PRESCRIPTIONS? NO . IF YES, PLEASE LIST: ____ . ANY NEW PROBLEMS WITH YOUR MEDICATIONS? NO . WHEN DID YOU LAST EAT? ____ . WHEN DID YOU LAST DRINK? ____ . WHAT DID YOU LAST DRINK? ____ . NAME OF PERSON DRIVING YOU HOME? ____ . DO YOU HAVE ANY OTHER QUESTIONS OR CONCERNS NO . VITAL SIGNS WT 250.0 LBS, HT 5'3'', BMI 44.28 INDEX, BP 124/62 MM HG, HR 96 /MIN, RR 18 /MIN, TEMP 98.2 F, OXYGEN SAT % 97%, NA INITIALS AW 1015. EXAMINATION GENERAL EXAMINATION: PATIENT IS ALERT O X 3 AND COOPERATIVE. TENDERNESS AND HYPERPATHIA OVER THE RIGHT SHOULDER. MRI OF THE RIGHT SHOULDER DONE ON 04/24/2017 SHOWS SUPRASPINATUS TENDINOSIS. ASSESSMENTS PAIN IN RIGHT SHOULDER - M25.511 (PRIMARY) OTHER CHRONIC PAIN - G89.29 URINARY INCONTINENCE, UNSPECIFIED TYPE - R32 INCONTINENCE OF FECES, UNSPECIFIED FECAL INCONTINENCE TYPE - R15.9 TREATMENT PAIN IN RIGHT SHOULDER CLINICAL NOTES: WE DISCUSSED SEVERAL ISSUES WITH MS. HARPER'S PAIN MANAGEMENT CASE. WE WILL CONTINUE WITH THE PLAN OF REACHING INSURANCE APPROVAL FOR A PSYCHOLOGICAL EVALUATION A REQUIREMENT FOR THE DCS TRIAL. THE PATIENT WILL CONTINUE WITH CELEBREX, BUT WILL TRY TO STOP FOR A SHORT PERIOD TO SEE IF IT HAS BEEN HELPING WITH HER PAIN. I WILL START THE PATIENT ON VOLTAREN GEL TO BE USED UP TO 3 TIMES DAILY FOR HER RIGHT SHOULDER PAIN. I DISCUSSED WITH THE PATIENT SHOULD THE VOLTAREN GEL NOT WORK, I MAY CONSIDER FLECTOR PATCHES NEXT. I AM ALSO REQUESTING AGAIN FOR AN INTERFERENTIAL TENS UNIT TO HELP WITH THE PATIENT'S RIGHT SHOULDER PAIN. THE PATIENT WILL FOLLOW UP IN 10 WEEKS. INSTRUCTIONS WERE GIVEN, QUESTIONS WERE ANSWERED, PATIENT REPORTS UNDERSTANDING AND AGREES WITH THE PLAN. IURSULA, DOCUMENTED THE ABOVE INFORMATION ACTING A SCRIBE FOR DR. IBARRA. I HAVE REVIEWED THE ABOVE DOCUMENT, WRITTEN BY URSULA VELÁSQUEZ SCRIBE AND I VERIFY THAT IT IS ACCURATE. . OTHERS START VOLTAREN GEL, 1 %, 1 STRIP, TRANSDERMAL AT RIGHT SHOULDER, THREE TIMES DAILY NEEDED FOR PAIN, 30 DAYS, 1, REFILLS 1 PREVENTIVE MEDICINE PAIN CLINIC TEACHING: MEDICATIONS INFORMATION HANDOUT FOR VOLTAREN GEL PRINTED AND REVIEWED WITH PATIENT. 06/13/19 LAS. PROCEDURE CODES FA211 ESTABILISHED PATIENT [facility] CHARGE G8427 CURRENT MEDS W/DOSAGES DOCUMENTED G8730 PAIN ASSESS POS TOOL F/U PLAN DOC DISPOSITION & COMMUNICATION FOLLOW UP 10 WEEKS (REASON: F/U W/ DR. Castro FOR MEDS/PSYCH EVAL FOR DCS ) ELECTRONICALLY SIGNED BY WALDO IBARRA MD, ON 06/29/2019 AT 04:44 PM EDT DISCLAIMER : THIS IS A VISIT SUMMARY EXTRACTED FROM THE [employer] CHART. IT IS NOT A COPY OF THE [employer] PROGRESS NOTE. ARACELI
== END ==
LOC: M PAIN 10:15
PROVIDERS: ATTEND Anesthesiology
DX: M25.511 Pain in right shoulder (principal); G89.29 Other chronic pain; R32 Unspecified urinary incontinence; R15.9 Full incontinence of feces; G43.909 Migraine, unspecified, not intractable, without status migrainosus; K21.9 Gastro-esophageal reflux disease without esophagitis; E03.9 Hypothyroidism, unspecified; E78.5 Hyperlipidemia, unspecified; Z88.5 Allergy status to narcotic agent; E66.01 Morbid (severe) obesity due to excess calories; Z68.41 Body mass index [BMI] 40.0-44.9, adult; Z79.899 Other long term (current) drug therapy

== ENCOUNTER → 2019-08-08 | Outpatient (CLI) | payer OTHER ==
--- NOTE | 2019-08-19 04:16 | ECWPNPC ---
PATIENT NAME: SHARAD HARPER : 1975 GENDER: FEMALE VISIT DATE: 08/08/2019 DISCHARGE DATE: 08/08/19 1041 VISIT LOCKED DATE TIME: PHYSICIAN: WALDO IBARRA MD RESOURCE: WALDO IBARRA MD REASON FOR APPOINTMENT 1. F/U W/ DR. Castro FOR MEDS/PSYCH EVAL FOR DCS HISTORY OF PRESENT ILLNESS HISTORY OF PRESENT ILLNESS: PAIN THE PATIENT DESCRIBES THE PAIN... 43 YEAR OLD FEMALE PATIENT WITH A HISTORY OF CHRONIC RIGHT SHOULDER PAIN. THE PATIENT DESCRIBES THE PAIN ACHING, BURNING, SORE, TENDER, SHARP, STABBING, SHOOTING, DAILY, AND CONTINUOUS WITH A PAIN SCORE OF 8-10/10 DEPENDING ON PHYSICAL ACTIVITY. 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 THE PATIENT STATES HER PAIN BEGINS IN HER RIGHT SHOULDER AND RADIATES DOWN HER RIGHT ARM. THE PATIENT SAYS SHE HAS HAD TWO SHOULDER SURGERIES DONE IN THE PAST, BUT HER PAIN CONTINUES TO PERSIST. THE PATIENT STATES SHE IS RIGHT-HANDED AND THEREFORE HER PAIN IS AFFECTING HER ABILITY TO PERFORM HER DAILY ACTIVITIES SUCH COOKING, NEEDING DAILY ASSISTANCE FROM OTHERS TO DRESS HERSELF, COMB OR PULL HER HAIR BACK, AND CLEAN HERSELF WHILE IN THE BATHROOM OR SHOWER. PATIENT DENIES UNEXPLAINABLE WEIGHT LOSS, FEVER, CHILLS, NEW CHANGES ON HER URINARY OR BOWEL CONTROL. FALL RISK SCREENING: SCREENING :NO FALLS REPORTED IN THE LAST YEAR CURRENT MEDICATIONS TAKING VOLTAREN 1 % GEL 1 STRIP TRANSDERMAL AT RIGHT SHOULDER THREE TIMES DAILY NEEDED FOR PAIN TAKING DICLOFENAC SODIUM 75 MG TABLET DELAYED RELEASE 1 TABLET WITH FOOD OR MILK ORALLY PRN FOR PAIN TWICE A DAY MDD2 TAKING METOPROLOL-HYDROCHLOROTHIAZIDE 50-25 MG TABLET 1 TABLET WITH A MEAL ORALLY ONCE A DAY TAKING LEVOTHYROXINE SODIUM 150 MCG TABLET 1 TABLET ON AN EMPTY STOMACH IN THE MORNING ORALLY ONCE A DAY TAKING GABAPENTIN 100 MG CAPSULE 1 CAPSULE ORALLY FOR PAIN ONCE A DAY AT NIGHT, NOTES: TAKING DAILY TAKING OMEPRAZOLE 40 MG CAPSULE DELAYED RELEASE 1 CAPSULE ORALLY BID, NOTES: TAKES NEEDED TAKING CARAFATE 1 GM TABLET 1 TABLET ON AN EMPTY STOMACH ORALLY DAILY NOT-TAKING CELECOXIB 200 MG CAPSULE 1 CAPSULE WITH FOOD ORALLY FOR PAIN ONCE A DAY NOT-TAKING IBUPROFEN 800 MG TABLET 1 TABLET WITH FOOD OR MILK NEEDED ORALLY FOR PAIN EVERY 8 HOURS NEEDED NOT-TAKING IBU 600 MG TABLET 1 TABLET ORALLY DAILY/PRN MEDICATION LIST REVIEWED AND RECONCILED WITH THE PATIENT PAST MEDICAL HISTORY SHINGLES MIGRAINE HEADACHES OBESITY ESOPHAGEAL REFLUX HYPOTHYROIDISM OVARIAN CYSTS HYPERLIPIDEMIA ABDOMINAL PAIN ESOPHAGEAL REFLUX HEMATURIA UTI ATYPICAL CP NAUSEA VOMITING BLOOD CLOTS AND KNICKED AORTA WITH HEMORRHAGE WITH C-SECION EOSINOPHILIC ESOPHAGITIS ALLERGIES OXYCONTIN: SHORTNESS OF BREATH - ALLERGY OXYCODONE HCL: ANAPHYLAXIS - ALLERGY SURGICAL HISTORY ENDOMETRIOSIS -3X ADHESIONS , 12 POLYPS REMOVED ENDOSCOPY 1998 2011 COLONOSCOPY 2012 HYSTERECTOMY 2011 LEFT BUNIONECTOMY 1098 CHOLECYSTECTOMY 2013 ANAL FISSURE REPAIR OF NASAL FRACTURE 1985 FAMILY HISTORY FATHER: ALIVE 65 YRS, DIABETES, DIAGNOSED WITH DIABETES, HYPERTENSION MOTHER: 64 YRS, BREAST CANCER, DIABETES, HYPERTENSION, OTHER MALIGNANT NEOPLASM OF UNSPECIFIED SITE PATERNAL GRAND FATHER: PATERNAL GRAND MOTHER: 75 YRS, ALZHEIMER'S DEMENTIA MATERNAL GRAND FATHER: MATERNAL GRAND MOTHER: 72 YRS, HEART ATTACK 2 BROTHER(S) , 1 SISTER(S) - HEALTHY. 2 SON(S) , 1 DAUGHTER(S) - HEALTHY. SOCIAL HISTORY GENERAL: TOBACCO USE ARE YOU A:NONSMOKER OTHERS AT HOME: OTHER NON-RELATIVE, CHILDREN. DIET: REGULAR. LANGUAGE CHADIAN. DOMESTIC VIOLENCE NONE. BMI CARE GOAL FOLLOW-UP ABOVE NORMAL BMI FOLLOW-UPDIETARY MANAGEMENT EDUCATION, GUIDANCE, AND COUNSELING RECREATIONAL DRUG USE DENIES. EXERCISE: NO REGULAR EXERCISE. LEARNING BARRIERS / SPECIAL NEEDS CHANGE FROM LAST VISIT?NO BARRIERS TO LEARNING?NO HEARING IMPAIRED?NO VISION IMPAIRED?NO COGNITIVELY IMPAIRED?NO READINESS TO LEARN?YES LEARNING PREFERENCES?NO LEARNING CAPABILITIES PRESENT?YES EMOTIONAL BARRIERS?NO SPECIAL DEVICES?NO PRODUCER ASSISTANT NEEDED?NO PAIN CLINIC PFS, CLERGY, PUBLIC HEALTH REFERRALS WAS THE PROVIDER NOTIFIED OF ANY PERTINENT INFO?YES HAS THE PATIENT BEEN EDUCATED REGARDING HIS/HER PLAN OF CARE?YES HAS THE PATIENT BEEN EDUCATED REGARDING PAIN, THE RISK FOR PAIN, THE IMPORTANCE OF EFFECTIVE PAIN MANAGEMENT, AND THE PAIN ASSESSMENT PROCESS?YES ORIENTED TO [facility] LATEX QUESTIONNAIRE LATEX ALLERGY : HAVE YOU EVER DEVELOPED ANY TYPE OF REACTION AFTER HANDLING LATEX PRODUCTS SUCH RUBBER GLOVES, CONDOMS, DIAPHRAGMS, BALLOONS, SOCKS, OR UNDERWEAR?NO LATEX ALLERGY : HAVE YOU EVER DEVELOPED ANY TYPE OF REACTION DURING OR AFTER DENTAL APPOINTMENT, VAGINAL/RECTAL EXAMINATION, SURGICAL PROCEDURE, OR ANY OTHER EXPOSURE?NO LATEX RISK : HAVE YOU EVER HAD ANY DIFFICULTY BREATHING OR HIVES AFTER EATING OR HANDLING ANY FRUITS, OR VEGETABLES; SUCH KIWI, BANANAS, STONE FRUITS, OR CHESTNUTSNO LATEX RISK : DO YOU HAVE A PREVIOUS PERSONAL HISTORY OF MORE THAN NINE SURGERIES, SPINA BIFIDA, OR REPEATED CATHERIZATIONS? NO LATEX RISK : ARE YOU FREQUENTLY EXPOSED TO LATEX PRODUCTS IN YOUR OCCUPATION?NO DATE ASKED : 08/08/2019 CAFFEINE 1-2/DAY. ADVANCE DIRECTIVE ADVANCE DIRECTIVE DISCUSSED WITH PATIENT:YES PT DECLINES ANY INFORMATION OR ASSISTANCE AT THIS TIME CAODAISM [id number] JEWISH MARITAL STATUS: SINGLE, .. ALCOHOL SCREENING POINTS: 0, INTERPRETATION: NEGATIVE. OCCUPATION: [employer] - DISABLED. SEXUAL HX HAD SEX IN THE LAST 12 MONTHS (VAGINAL, ORAL, OR ANAL)?: YES, WITH: MEN ONLY, USE PROTECTION?: NO, HAVE YOU EVER HAD AN STD?: NO. REVIEWED WITH PT 03/12/2019 NM. HOSPITALIZATION/MAJOR DIAGNOSTIC PROCEDURE ABOVE [place] & [place] REVIEW OF SYSTEMS REVIEWED BY: PROVIDER: WALDO IBARRA MD . CONSTITUTIONAL: ANY CHANGE IN YOUR MEDICAL CONDITION? NO . CHILLS NO . FEVER NO . INFECTION: DO YOU HAVE NEW INFECTIONS? NO . DO YOU HAVE HISTORY OF MRSA? NO . MUSCULOSKELETAL: ANY NEW PATTERNS OF PAIN OR NUMBNESS? NO . GASTROENTEROLOGY: ANY NEW CHANGE IN BOWEL CONTROL? NO . GENITOURINARY: ANY NEW CHANGE IN BLADDER CONTROL? NO . IS THERE A CHANCE YOU COULD BE ? NO . HEMATOLOGY/LYMPH: DO YOU TAKE ANY BLOOD THINNERS? (FOR EXAMPLE- COUMADIN, PLAVIX, AGGRENOX, PLATEL, PRADAXA, OR XARELTO) NO . WHEN WAS YOUR LAST DOSE? DATE: TIME: . NEUROLOGY: HAVE YOU FALLEN IN THE PAST 12 MONTHS? NO . ANY NEW EXTREMITY NUMBNESS OR WEAKNESS? NO . CARDIOLOGY: DO YOU HAVE A PACEMAKER OR DEFIBRILLATOR? NO . RESPIRATORY: HAVE YOU BEEN SICK IN THE PAST WEEK? NO . FEVER NO . FLU LIKE SYMPTOMS? NO . COUGH NO . INTEGUMENTARY: DO YOU HAVE ANY RASHES OR OPEN SORES? NO . ALLERGIC/IMMUNO: ARE YOU ALLERGIC TO IV DYE? NO . ANY NEW ALLERGIES? NO . PSYCHIATRIC: DO YOU HAVE THOUGHTS OF HURTING YOURSELF OR SOMEONE ELSE? NO . ARE YOU ABUSED, NEGLECTED, OR IN AN UNSAFE ENVIRONMENT? NO . ENDOCRINOLOGY: ARE YOU DIABETIC? NO . OTHER: DO YOU NEED ANY PRESCRIPTIONS? NO . IF YES, PLEASE LIST: ____ . ANY NEW PROBLEMS WITH YOUR MEDICATIONS? NO . WHEN DID YOU LAST EAT? ____ . WHEN DID YOU LAST DRINK? ____ . WHAT DID YOU LAST DRINK? ____ . NAME OF PERSON DRIVING YOU HOME? ____ . DO YOU HAVE ANY OTHER QUESTIONS OR CONCERNS NO . VITAL SIGNS WT 252.6 LBS, HT 5'3'', BMI 44.74 INDEX, BP 134/68 MM HG, HR 75 /MIN, RR 18 /MIN, TEMP 97.6 F, OXYGEN SAT % 96%, SAFE IN ENV? (Y/N) Y, NA INITIALS AW 0958, REVIEWED BY: ZENA. EXAMINATION GENERAL EXAMINATION: PATIENT IS ALERT O X 3 AND COOPERATIVE. PATIENT CAN ABDUCT LEFT ARM AND FLEX RIGHT ELBOW, BUT CANNOT MOVE RIGHT SHOULDER. TENDERNESS OVER RIGHT SHOULDER AREA. SEVERE PAIN EXPERIENCED MOVING SHOULDER FORWARD AND BACKWARD. RIGHT ARM IS WEAKER AT EXTENSION AND FLEXION. RIGHT HAND GLASS NOVELTY MAKER IS REDUCED COMPARED WITH THE LEFT SIDE. PATIENT REPORTS FEELING SICK, A VOMIT SENSATION, FROM THE PAIN. ASSESSMENTS PAIN IN RIGHT SHOULDER - M25.511 (PRIMARY) NEURALGIA - M79.2 OTHER CHRONIC PAIN - G89.29 URINARY INCONTINENCE, UNSPECIFIED TYPE - R32 INCONTINENCE OF FECES, UNSPECIFIED FECAL INCONTINENCE TYPE - R15.9 TREATMENT PAIN IN RIGHT SHOULDER CLINICAL NOTES: WE DISCUSSED SEVERAL ISSUES WITH MS. HARPER'S PAIN MANAGEMENT CASE. THE PATIENT'S PSYCHOLOGICAL EVALUATION IS APPROVED AND THE PATIENT WILL BE MAKING AN APPOINTMENT TO COMPLETE IN THE NEXT FEW WEEKS. THE PATIENT HAS STOPPED USING CELEBREX IT WAS NOT WORKING FOR HER PAIN. THE PATIENT SAYS SHE TRIED USING VOLTAREN GEL BUT IT ALSO DID NOT WORK IT WAS PAINFUL FOR HER. I WILL REQUEST AN INTERFERENTIAL TENS UNIT AGAIN SINCE IT WAS NOT RECEIVED YET SINCE MY LAST REQUEST FOR THE PATIENT. THE PATIENT WILL FOLLOW UP WITH ME IN 6 WEEKS TO GO OVER THE PSYCHOLOGICAL EVALUATION RESULTS AND DISCUSS THE NEXT REQUIREMENTS FOR THE DCS TRIAL. INSTRUCTIONS WERE GIVEN, QUESTIONS WERE ANSWERED, PATIENT REPORTS UNDERSTANDING AND AGREES WITH THE PLAN. I, URSULA VELÁSQUEZ, DOCUMENTED THE ABOVE INFORMATION ACTING A SCRIBE FOR DR. IBARRA. I HAVE REVIEWED THE ABOVE DOCUMENT, WRITTEN BY URSULA HERNÁNDEZ AND I VERIFY THAT IT IS ACCURATE. . PROCEDURES PN WORKMANS' COMP OPINION IN YOUR OPINION, WAS THE INCIDENT THAT THE PATIENT DESCRIBED THE COMPETENT MEDICAL CAUSE OF THIS INJURY/ILLNESS? YES ARE THE PATIENT'S COMPLAINTS CONSISTENT WITH HIS/HER HISTORY OF THE INJURY/ILLNESS? YES IS THE PATIENT'S HISTORY OF THE INJURY/ILLNESS CONSISTENT WITH YOUR OBJECTIVE FINDING? YES WHAT IS THE PERCENTAGE OF TEMPORARY IMPAIRMENT? MODERATE TO MARKED = 66.7% IS THE PATIENT WORKING? NO DOCTOR ON SITE: WALDO CHÁVEZ MD PROCEDURE CODES G8427 CURRENT MEDS W/DOSAGES DOCUMENTED G8730 PAIN ASSESS POS TOOL F/U PLAN DOC FA211 ESTABILISHED PATIENT [facility] FACILITY CHARGE DISPOSITION & COMMUNICATION FOLLOW UP 6 WEEKS (REASON: RQSTING INTERFERENTIAL TENS UNIT, F/UP DR. Castro 6 WKS) ELECTRONICALLY SIGNED BY WALDO IBARRA MD, ON 08/18/2019 AT 12:06 PM EST DISCLAIMER : THIS IS A VISIT SUMMARY EXTRACTED FROM THE [employer] CHART. IT IS NOT A COPY OF THE [employer] PROGRESS NOTE. ARACELI
== END ==
LOC: M PAIN 10:15
PROVIDERS: ATTEND Anesthesiology
DX: M25.511 Pain in right shoulder (principal); M79.2 Neuralgia and neuritis, unspecified; R32 Unspecified urinary incontinence; R15.9 Full incontinence of feces; G43.909 Migraine, unspecified, not intractable, without status migrainosus; K21.9 Gastro-esophageal reflux disease without esophagitis; E03.9 Hypothyroidism, unspecified; E78.5 Hyperlipidemia, unspecified; Z88.5 Allergy status to narcotic agent; E66.01 Morbid (severe) obesity due to excess calories; Z68.41 Body mass index [BMI] 40.0-44.9, adult; Z79.899 Other long term (current) drug therapy

== ENCOUNTER → 2019-10-10 | Outpatient (CLI) | payer OTHER, BC ==
--- NOTE | 2019-10-23 05:49 | ECWPNPC ---
PATIENT NAME: SHARAD HARPER : 1975 GENDER: FEMALE VISIT DATE: 10/10/2019 DISCHARGE DATE: 10/10/19 1236 VISIT LOCKED DATE TIME: PHYSICIAN: WALDO IBARRA MD RESOURCE: WALDO IBARRA MD REASON FOR APPOINTMENT 1. DCS/PSYCH EVAL HISTORY OF PRESENT ILLNESS HISTORY OF PRESENT ILLNESS: PAIN THE PATIENT DESCRIBES THE PAIN... 44 YEAR OLD FEMALE PATIENT WITH A HISTORY OF CHRONIC RIGHT SHOULDER PAIN. THE PATIENT DESCRIBES THE PAIN ACHING, BURNING, SORE, TENDER, SHARP, STABBING, SHOOTING, DAILY, AND CONTINUOUS WITH A PAIN SCORE OF 8-10/10 DEPENDING ON PHYSICAL ACTIVITY. 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 THE PATIENT SAYS AFTER THE SHOULDER POP, SHE IMMEDIATELY FELT PAIN, SWELLING, AND NUMBNESS DOWN HER RIGHT ARM AND WAS UNABLE TO BEND HER FINGERS. THE PATIENT SAYS SHE HAS A HISTORY OF TWO SHOULDER SURGERIES, BUT HER PAIN PERSISTS. THE PATIENT SAYS SHE IS INTERESTED IN DOING A DCS TRIAL TO SEE IF IT WILL HELP WITH HER SHOULDER AND RADIATING ARM PAIN. THE PATIENT SAYS HER PAIN IS AFFECTING HER ABILITY TO PERFORM HER DAILY ACTIVITIES AND OFTEN NEEDS THE ASSISTANCE FROM OTHERS, SUCH TAKING CARE OF HERSELF, COOKING, AND CLEANING HER HOME. THE PATIENT MENTIONED SHE HAS TRIED USING A TENS UNIT, HOWEVER IT WORSENED HER PAIN. THE PATIENT SAYS SHE HAS TRIED VOLTAREN GEL, BUT IT IS ALSO NOT HELPING WITH HER PAIN, AND SHE PREFERS TO GO BACK TO USING IBUPROFEN SINCE IT WAS HELPING WITH HER PAIN. PATIENT DENIES UNEXPLAINABLE WEIGHT LOSS, FEVER, CHILLS, NEW CHANGES ON HER URINARY OR BOWEL CONTROL. FALL RISK SCREENING: SCREENING :NO FALLS REPORTED IN THE LAST YEAR CURRENT MEDICATIONS TAKING VOLTAREN 1 % GEL 1 STRIP TRANSDERMAL AT RIGHT SHOULDER THREE TIMES DAILY NEEDED FOR PAIN TAKING METOPROLOL-HYDROCHLOROTHIAZIDE 50-25 MG TABLET 1 TABLET WITH A MEAL ORALLY ONCE A DAY TAKING LEVOTHYROXINE SODIUM 150 MCG TABLET 1 TABLET ON AN EMPTY STOMACH IN THE MORNING ORALLY ONCE A DAY TAKING GABAPENTIN 100 MG CAPSULE 1 CAPSULE ORALLY FOR PAIN ONCE A DAY AT NIGHT, NOTES: TAKING DAILY TAKING OMEPRAZOLE 40 MG CAPSULE DELAYED RELEASE 1 CAPSULE ORALLY BID, NOTES: TAKES NEEDED TAKING CARAFATE 1 GM TABLET 1 TABLET ON AN EMPTY STOMACH ORALLY DAILY, NOTES: CURRENTLY OUT OF NOT-TAKING DICLOFENAC SODIUM 75 MG TABLET DELAYED RELEASE 1 TABLET WITH FOOD OR MILK ORALLY PRN FOR PAIN TWICE A DAY MDD2 NOT-TAKING CELECOXIB 200 MG CAPSULE 1 CAPSULE WITH FOOD ORALLY FOR PAIN ONCE A DAY NOT-TAKING IBUPROFEN 800 MG TABLET 1 TABLET WITH FOOD OR MILK NEEDED ORALLY FOR PAIN EVERY 8 HOURS NEEDED NOT-TAKING IBU 600 MG TABLET 1 TABLET ORALLY DAILY/PRN MEDICATION LIST REVIEWED AND RECONCILED WITH THE PATIENT PAST MEDICAL HISTORY SHINGLES MIGRAINE HEADACHES OBESITY ESOPHAGEAL REFLUX HYPOTHYROIDISM OVARIAN CYSTS HYPERLIPIDEMIA ABDOMINAL PAIN ESOPHAGEAL REFLUX HEMATURIA UTI ATYPICAL CP NAUSEA VOMITING BLOOD CLOTS AND KNICKED AORTA WITH HEMORRHAGE WITH C-SECION EOSINOPHILIC ESOPHAGITIS ALLERGIES OXYCONTIN: SHORTNESS OF BREATH - ALLERGY OXYCODONE HCL: ANAPHYLAXIS - ALLERGY SURGICAL HISTORY ENDOMETRIOSIS -3X ADHESIONS , 12 POLYPS REMOVED ENDOSCOPY 1998 2011 COLONOSCOPY 2012 HYSTERECTOMY 2011 LEFT BUNIONECTOMY 1098 CHOLECYSTECTOMY 2013 ANAL FISSURE REPAIR OF NASAL FRACTURE 1985 FAMILY HISTORY FATHER: ALIVE 65 YRS, DIABETES, DIAGNOSED WITH DIABETES, HYPERTENSION MOTHER: 64 YRS, BREAST CANCER, HYPERTENSION, OTHER MALIGNANT NEOPLASM OF UNSPECIFIED SITE, DIABETES PATERNAL GRAND FATHER: PATERNAL GRAND MOTHER: 75 YRS, ALZHEIMER'S DEMENTIA MATERNAL GRAND FATHER: MATERNAL GRAND MOTHER: 72 YRS, HEART ATTACK 2 BROTHER(S) , 1 SISTER(S) - HEALTHY. 2 SON(S) , 1 DAUGHTER(S) - HEALTHY. SOCIAL HISTORY GENERAL: TOBACCO USE ARE YOU A:NONSMOKER OTHERS AT HOME: OTHER NON-RELATIVE, CHILDREN. DIET: REGULAR. LANGUAGE SALVADOREAN. DOMESTIC VIOLENCE NONE. BMI CARE GOAL FOLLOW-UP ABOVE NORMAL BMI FOLLOW-UPDIETARY MANAGEMENT EDUCATION, GUIDANCE, AND COUNSELING RECREATIONAL DRUG USE DENIES. EXERCISE: NO REGULAR EXERCISE. LEARNING BARRIERS / SPECIAL NEEDS CHANGE FROM LAST VISIT?NO BARRIERS TO LEARNING?NO HEARING IMPAIRED?NO VISION IMPAIRED?NO COGNITIVELY IMPAIRED?NO READINESS TO LEARN?YES LEARNING PREFERENCES?NO LEARNING CAPABILITIES PRESENT?YES EMOTIONAL BARRIERS?NO SPECIAL DEVICES?NO GREETING CARD EDITOR NEEDED?NO PAIN CLINIC PFS, CLERGY, PUBLIC HEALTH REFERRALS WAS THE PROVIDER NOTIFIED OF ANY PERTINENT INFO?YES HAS THE PATIENT BEEN EDUCATED REGARDING HIS/HER PLAN OF CARE?YES HAS THE PATIENT BEEN EDUCATED REGARDING PAIN, THE RISK FOR PAIN, THE IMPORTANCE OF EFFECTIVE PAIN MANAGEMENT, AND THE PAIN ASSESSMENT PROCESS?YES ORIENTED TO [facility] LATEX QUESTIONNAIRE LATEX ALLERGY : HAVE YOU EVER DEVELOPED ANY TYPE OF REACTION AFTER HANDLING LATEX PRODUCTS SUCH RUBBER GLOVES, CONDOMS, DIAPHRAGMS, BALLOONS, SOCKS, OR UNDERWEAR?NO LATEX ALLERGY : HAVE YOU EVER DEVELOPED ANY TYPE OF REACTION DURING OR AFTER DENTAL APPOINTMENT, VAGINAL/RECTAL EXAMINATION, SURGICAL PROCEDURE, OR ANY OTHER EXPOSURE?NO DATE ASKED : 08/08/2019 LATEX RISK : HAVE YOU EVER HAD ANY DIFFICULTY BREATHING OR HIVES AFTER EATING OR HANDLING ANY FRUITS, OR VEGETABLES; SUCH KIWI, BANANAS, STONE FRUITS, OR CHESTNUTSNO LATEX RISK : DO YOU HAVE A PREVIOUS PERSONAL HISTORY OF MORE THAN NINE SURGERIES, SPINA BIFIDA, OR REPEATED CATHERIZATIONS? NO LATEX RISK : ARE YOU FREQUENTLY EXPOSED TO LATEX PRODUCTS IN YOUR OCCUPATION?NO CAFFEINE 1-2/DAY. ADVANCE DIRECTIVE ADVANCE DIRECTIVE DISCUSSED WITH PATIENT:YES PT DECLINES ANY INFORMATION OR ASSISTANCE AT THIS TIME. 10/10/19 HOAHAOISM [id number] BAPTISM MARITAL STATUS: SINGLE, .. ALCOHOL SCREENING POINTS: 0, INTERPRETATION: NEGATIVE. OCCUPATION: [employer] - DISABLED. SEXUAL HX HAD SEX IN THE LAST 12 MONTHS (VAGINAL, ORAL, OR ANAL)?: YES, WITH: MEN ONLY, USE PROTECTION?: NO, HAVE YOU EVER HAD AN STD?: NO. REVIEWED WITH PT 03/12/2019 NMREVIEWED WITH PATIENT 10/10/19 1048 BV. HOSPITALIZATION/MAJOR DIAGNOSTIC PROCEDURE ABOVE CARTHAGE & [place] REVIEW OF SYSTEMS REVIEWED BY: PROVIDER: WALDO IBARRA MD . CONSTITUTIONAL: ANY CHANGE IN YOUR MEDICAL CONDITION? NO . CHILLS NO . FEVER NO . INFECTION: DO YOU HAVE NEW INFECTIONS? NO . DO YOU HAVE HISTORY OF MRSA? NO . MUSCULOSKELETAL: ANY NEW PATTERNS OF PAIN OR NUMBNESS? NO . GASTROENTEROLOGY: ANY NEW CHANGE IN BOWEL CONTROL? NO . GENITOURINARY: ANY NEW CHANGE IN BLADDER CONTROL? NO . IS THERE A CHANCE YOU COULD BE ? NO . HEMATOLOGY/LYMPH: DO YOU TAKE ANY BLOOD THINNERS? (FOR EXAMPLE- COUMADIN, PLAVIX, AGGRENOX, PLATEL, PRADAXA, OR XARELTO) NO . WHEN WAS YOUR LAST DOSE? DATE: TIME: . NEUROLOGY: HAVE YOU FALLEN IN THE PAST 12 MONTHS? NO . ANY NEW EXTREMITY NUMBNESS OR WEAKNESS? NO . CARDIOLOGY: DO YOU HAVE A PACEMAKER OR DEFIBRILLATOR? NO . RESPIRATORY: HAVE YOU BEEN SICK IN THE PAST WEEK? NO . FEVER NO . FLU LIKE SYMPTOMS? NO . COUGH NO . INTEGUMENTARY: DO YOU HAVE ANY RASHES OR OPEN SORES? NO . ALLERGIC/IMMUNO: ARE YOU ALLERGIC TO IV DYE? NO . ANY NEW ALLERGIES? NO . PSYCHIATRIC: DO YOU HAVE THOUGHTS OF HURTING YOURSELF OR SOMEONE ELSE? NO . ARE YOU ABUSED, NEGLECTED, OR IN AN UNSAFE ENVIRONMENT? NO . ENDOCRINOLOGY: ARE YOU DIABETIC? NO . OTHER: DO YOU NEED ANY PRESCRIPTIONS? NO . IF YES, PLEASE LIST: ____ . ANY NEW PROBLEMS WITH YOUR MEDICATIONS? NO . WHEN DID YOU LAST EAT? ____ . WHEN DID YOU LAST DRINK? ____ . WHAT DID YOU LAST DRINK? ____ . NAME OF PERSON DRIVING YOU HOME? ____ . DO YOU HAVE ANY OTHER QUESTIONS OR CONCERNS YES, PT WOULD LIKE TO DISCUSS TENS UNIT WITH DR. IBARRA . VITAL SIGNS WT 253.6 LBS, HT 5'3'', BMI 44.92 INDEX, BP 172/76 MM HG, HR 78 /MIN, RR 18 /MIN, TEMP 97.2 F, OXYGEN SAT % 98%, NA INITIALS SC 10:38, REVIEWED BY: BV. EXAMINATION GENERAL EXAMINATION: PATIENT IS ALERT O X 3 AND COOPERATIVE. PATIENT CAN ABDUCT LEFT ARM, BUT IS UNABLE TO LIFT RIGHT SHOULDER OR ARM. TENDERNESS AND HYPERPATHIA OVER THE RIGHT SHOULDER AND RIGHT ARM. RIGHT ARM IS WEAKER AT EXTENSION AND FLEXION. PSYCHOLOGICAL EVALUATION DONE ON 09/22/2019 STATES SHE IS CLEARED FOR THE TRIAL. 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 HARPER'S PAIN MANAGEMENT CASE. I WILL START THE PATIENT ON IBUPROFEN TABLET 800 MG 1 TABLET TO BE TAKEN NEEDED WITH FOOD. I EXPLAINED TO THE PATIENT THE RISKS ALTERNATIVES AND BENEFITS ASSOCIATED WITH THE USE OF NSAID'S. THE PATIENT UNDERSTOOD THAT THE USE OF NSAID'S MAY BE ASSOCIATED WITH THE DEVELOPMENT OF GASTRIC IRRITATION AND ULCERS, WITH THE DEVELOPMENT OF KIDNEY PROBLEMS, AND WITH THE POSSIBILITY OF DEVELOPING CARDIAC EVENTS, SUCH STOKE OR CARDIAC DISEASES. THE PATIENT AGREES ON USING THE PRESCRIBED NSAID ONLY NEEDED FOR HER PAIN AND TO AVOID DAILY USE IF POSSIBLE. I WILL ORDER FOR A CERVICAL AND THORACIC SPINE MRIS TO BE DONE FOR THE DCS TRIAL. THE PATIENT WILL FOLLOW UP WITH ME IN DECEMBER TO GO OVER THE MRI RESULTS AND DISCUSS THE NEXT STEPS FOR THE DCS TRIAL. THE PATIENT WILL STOP USING THE TENS UNIT DUE TO IT NOT HELPING HER PAIN. INSTRUCTIONS WERE GIVEN, QUESTIONS WERE ANSWERED, PATIENT REPORTS UNDERSTANDING AND AGREES WITH THE PLAN. I, URSULA VELÁSQUEZ, DOCUMENTED THE ABOVE INFORMATION ACTING A SCRIBE FOR DR. IBARRA. I HAVE REVIEWED THE ABOVE DOCUMENT, WRITTEN BY URSULA VELÁSQUEZ SCRIBE AND I VERIFY THAT IT IS ACCURATE. . NEURALGIA [facility] MRI SPINE, CERVICAL WITHOUT [id number] [facility] MRI SPINE,THORACIC WITHOUT [id number] OTHERS REFILL IBUPROFEN TABLET, 800 MG, 1 TABLET WITH FOOD OR MILK NEEDED, ORALLY FOR PAIN, EVERY 8 HOURS NEEDED MDD2, 30 DAY(S), 50, REFILLS 1 PROCEDURE CODES FA211 ESTABILISHED PATIENT [facility] FACILITY CHARGE G8427 CURRENT MEDS W/DOSAGES DOCUMENTED G8730 PAIN ASSESS POS TOOL F/U PLAN DOC DISPOSITION & COMMUNICATION FOLLOW UP REASON: SCHEDULED DECEMBER [address] Castro, ORDERING CERVICAL/THORACIC MRI ELECTRONICALLY SIGNED BY WALDO IBARRA MD, MD ON 10/22/2019 AT 06:24 PM EST DISCLAIMER : THIS IS A VISIT SUMMARY EXTRACTED FROM THE [employer] CHART. IT IS NOT A COPY OF THE [employer] PROGRESS NOTE. ARACELI
== END ==
LOC: M PAIN 10:00
PROVIDERS: ATTEND Anesthesiology
DX: M25.511 Pain in right shoulder (principal); M79.2 Neuralgia and neuritis, unspecified; G89.29 Other chronic pain; R32 Unspecified urinary incontinence; R15.9 Full incontinence of feces; G43.909 Migraine, unspecified, not intractable, without status migrainosus; K21.9 Gastro-esophageal reflux disease without esophagitis; E03.9 Hypothyroidism, unspecified; E78.5 Hyperlipidemia, unspecified; Z88.5 Allergy status to narcotic agent; E66.01 Morbid (severe) obesity due to excess calories; Z68.41 Body mass index [BMI] 40.0-44.9, adult; Z79.899 Other long term (current) drug therapy

== ENCOUNTER → 2019-10-16 | Outpatient (CLI) | payer OTHER ==
[~2019-10-16] MED LIST changes: +PROHANCE 279.3MG/ML 15ML VIAL (A9576) As Ordered ONE; +PROHANCE 279.3MG/ML 5ML VIAL (A9576) As Ordered ONE
--- NOTE | 2019-10-16 17:06 | REP ---
MRI orbits without and with IV contrast: History: Ischemic optic neuropathy. Technique: Axial and coronal T1 and T2-weighted scans were obtained with and without fat saturation. Pre and postcontrast imaging was acquired. Gadolinium enhancement dose is 20 mL of intravenous ProHance. MRI findings: There is no evidence of intraconal or extraconal mass. Extraocular muscles are normal and symmetric. Optic nerves are unremarkable. Ocular globes show no abnormality. There is minimal mucosal thickening in the anterior ethmoid air cells bilaterally, right a little more so than left. Otherwise the visualized paranasal sinuses are clear. Visualized intracranial structures are unremarkable. No abnormal contrast enhancement is appreciated. Impression: Unremarkable MRI study of the orbits without and with IV contrast. Electronically Signed by Roosevelt Marinelli MD 10/16/2019 05:58 P
--- NOTE | 2019-10-16 17:21 | REP ---
MRI brain without and with contrast: History: Ischemic optic neuropathy . Comparison study: Comparison brain MRI study October 26, 2005. Technique: Axial and sagittal imaging planes are utilized for T1 and T2-weighted scans. Sequences include spin-echo, fast spin echo, FLAIR, and diffusion weighted sequences. Gadolinium enhancement dose is 20 ml of intravenous ProHance. MRI findings: No bony calvarial lesion is seen. Craniocervical junction and upper cervical cord are normal in appearance. There is no MR evidence of significant paranasal sinus disease. No intraorbital abnormality is seen. The lateral, third, and fourth ventricles are normal in size and position. Ramos-white differentiation pattern is intact above and below the tentorium. There is no evidence of intracranial hemorrhage. No mass, infarction, extra-axial fluid collection or midline shift is seen. No abnormal white matter lesion is seen. No abnormal contrast enhancement is appreciated. Impression: Negative brain MRI study without and with intravenous contrast . Electronically Signed by Roosevelt Marinelli MD 10/16/2019 05:12 P
== END ==
LOC: M RAD 14:52
DX: H47.013 Ischemic optic neuropathy, bilateral (principal)
CPT/HCPCS: 70543; 70553; A9576

== ENCOUNTER → 2019-12-19 | Outpatient (CLI) | payer OTHER, BC ==
[~2019-12-19] MED LIST changes: -PROHANCE 279.3MG/ML 15ML VIAL (A9576) As Ordered ONE; -PROHANCE 279.3MG/ML 5ML VIAL (A9576) As Ordered ONE
--- NOTE | 2020-01-01 03:11 | ECWPNPC ---
PATIENT NAME: SHARAD HARPER : 1975 GENDER: FEMALE VISIT DATE: 12/19/2019 DISCHARGE DATE: 12/19/19 1413 VISIT LOCKED DATE TIME: PHYSICIAN: WALDO IBARRA MD RESOURCE: WALDO IBARRA MD REASON FOR APPOINTMENT 1. DISCUSS MRI DENIAL HISTORY OF PRESENT ILLNESS HISTORY OF PRESENT ILLNESS: PAIN THE PATIENT DESCRIBES THE PAIN... PERMISSION FROM PATIENT WAS RECEIVED TO DO TELEPHONE OFFICE VISIT. 44 YEAR OLD FEMALE PATIENT WITH A HISTORY OF CHRONIC RIGHT SHOULDER PAIN. THE PATIENT DESCRIBES THE PAIN ACHING, BURNING, HAVE IT ALL THE TIME, SHARP, STABBING PAIN IS CONSTANT, INTERMITTENT PINS AND NEEDLES WITH A PAIN SCORE OF 8-10/10 DEPENDING ON PHYSICAL ACTIVITY. 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 THE PATIENT STATES SHE HAS HAD TWO SHOULDER SURGERIES DONE IN NOVEMBER 2016 AND APRIL 2018, BUT HER PAIN PERSISTS. THE PATIENT SAYS SHE WAS PRESCRIBED IBUPROFEN AT HER LAST VISIT HERE, SINCE IT IS THE ONLY MEDICATION THAT HAS HELPED WITH HER PAIN. HOWEVER, THE PATIENT SAYS HER PRIMARY CARE PROVIDER WANTS HER TO STOP THE IBUPROFEN AND ADVISED HER TO TAKE TYLENOL INSTEAD, EVEN THOUGH TYLENOL DOES NOT TOUCH HER PAIN. THE PATIENT SAYS SHE HAS TRIED GABAPENTIN, CYMBALTA, AND CELEBREX, BUT NONE HELPED WITH HER PAIN AND CAUSED EXHAUSTION AMONG OTHER ISSUES FOR HER. THE PATIENT SAYS SHE RECEIVED A DENIAL LETTER FOR HER MRI ORDERS. PATIENT DENIES UNEXPLAINABLE WEIGHT LOSS, FEVER, CHILLS, NEW CHANGES ON HER URINARY OR BOWEL CONTROL. FALL RISK SCREENING: SCREENING :NO FALLS REPORTED IN THE LAST YEAR CURRENT MEDICATIONS TAKING METOPROLOL-HYDROCHLOROTHIAZIDE 50-25 MG TABLET 1 TABLET WITH A MEAL ORALLY ONCE A DAY TAKING LEVOTHYROXINE SODIUM 150 MCG TABLET 1 TABLET ON AN EMPTY STOMACH IN THE MORNING ORALLY ONCE A DAY TAKING GABAPENTIN 100 MG CAPSULE 1 CAPSULE ORALLY FOR PAIN ONCE A DAY AT NIGHT, NOTES: TAKING DAILY TAKING OMEPRAZOLE 40 MG CAPSULE DELAYED RELEASE 1 CAPSULE ORALLY BID, NOTES: TAKES NEEDED TAKING TOPIRAMATE ER _ CAPSULE EXTENDED RELEASE 24 HOUR 1 CAPSULE ORALLY ONCE A DAY TAKING ACETAMINOPHEN 325 MG CAPSULE 1 CAPSULE NEEDED ORALLY EVERY 4 HRS TAKING SIMVASTATIN _ TABLET 1 TABLET IN THE EVENING ORALLY UNSURE OF DOSE NOT-TAKING VOLTAREN 1 % GEL 1 STRIP TRANSDERMAL AT RIGHT SHOULDER THREE TIMES DAILY NEEDED FOR PAIN NOT-TAKING CARAFATE 1 GM TABLET 1 TABLET ON AN EMPTY STOMACH ORALLY DAILY, NOTES: CURRENTLY OUT OF NOT-TAKING IBUPROFEN 800 MG TABLET 1 TABLET WITH FOOD OR MILK NEEDED ORALLY FOR PAIN EVERY 8 HOURS NEEDED MDD2 NOT-TAKING DICLOFENAC SODIUM 75 MG TABLET DELAYED RELEASE 1 TABLET WITH FOOD OR MILK ORALLY PRN FOR PAIN TWICE A DAY MDD2 NOT-TAKING CELECOXIB 200 MG CAPSULE 1 CAPSULE WITH FOOD ORALLY FOR PAIN ONCE A DAY NOT-TAKING IBU 600 MG TABLET 1 TABLET ORALLY DAILY/PRN MEDICATION LIST REVIEWED AND RECONCILED WITH THE PATIENT PAST MEDICAL HISTORY SHINGLES MIGRAINE HEADACHES OBESITY ESOPHAGEAL REFLUX HYPOTHYROIDISM OVARIAN CYSTS HYPERLIPIDEMIA ABDOMINAL PAIN ESOPHAGEAL REFLUX HEMATURIA UTI ATYPICAL CP NAUSEA VOMITING BLOOD CLOTS AND KNICKED AORTA WITH HEMORRHAGE WITH C-SECION EOSINOPHILIC ESOPHAGITIS [id number] VIRUS ALLERGIES OXYCONTIN: SHORTNESS OF BREATH - ALLERGY OXYCODONE HCL: ANAPHYLAXIS - ALLERGY SURGICAL HISTORY ENDOMETRIOSIS -3X ADHESIONS , 12 POLYPS REMOVED ENDOSCOPY 1998 2011 COLONOSCOPY 2013 HYSTERECTOMY 2012 LEFT BUNIONECTOMY 1098 CHOLECYSTECTOMY 2013 ANAL FISSURE REPAIR OF NASAL FRACTURE 1986 FAMILY HISTORY FATHER: ALIVE 65 YRS, DIABETES, DIAGNOSED WITH DIABETES, HYPERTENSION MOTHER: 64 YRS, BREAST CANCER, DIABETES, HYPERTENSION, OTHER MALIGNANT NEOPLASM OF UNSPECIFIED SITE PATERNAL GRAND FATHER: PATERNAL GRAND MOTHER: 75 YRS, ALZHEIMER'S DEMENTIA MATERNAL GRAND FATHER: MATERNAL GRAND MOTHER: 72 YRS, HEART ATTACK 2 BROTHER(S) , 1 SISTER(S) - HEALTHY. 2 SON(S) , 1 DAUGHTER(S) - HEALTHY. SOCIAL HISTORY GENERAL: TOBACCO USE ARE YOU A:NONSMOKER OTHERS AT HOME: OTHER NON-RELATIVE, CHILDREN. DIET: REGULAR. LANGUAGE MONEGASQUE. DOMESTIC VIOLENCE NONE. NEW PATIENT PAIN DIARY PATIENT DESCRIBES PAIN :ACHING, BURNING, HAVE IT ALL THE TIME, SHARP, STABBING PAIN IS CONSTANT, PINS AND NEEDLES COMES AND GOES FROM 0-10, WHAT LEVEL IS YOUR PAIN TODAY?8 BMI CARE GOAL FOLLOW-UP ABOVE NORMAL BMI FOLLOW-UPDIETARY MANAGEMENT EDUCATION, GUIDANCE, AND COUNSELING RECREATIONAL DRUG USE DENIES. EXERCISE: NO REGULAR EXERCISE. LEARNING BARRIERS / SPECIAL NEEDS CHANGE FROM LAST VISIT?NO BARRIERS TO LEARNING?NO HEARING IMPAIRED?NO VISION IMPAIRED?NO COGNITIVELY IMPAIRED?NO READINESS TO LEARN?YES LEARNING PREFERENCES?NO LEARNING CAPABILITIES PRESENT?YES EMOTIONAL BARRIERS?NO SPECIAL DEVICES?NO RETAIL ASSOCIATE NEEDED?NO PAIN CLINIC PFS, CLERGY, PUBLIC HEALTH REFERRALS WAS THE PROVIDER NOTIFIED OF ANY PERTINENT INFO?YES HAS THE PATIENT BEEN EDUCATED REGARDING HIS/HER PLAN OF CARE?YES HAS THE PATIENT BEEN EDUCATED REGARDING PAIN, THE RISK FOR PAIN, THE IMPORTANCE OF EFFECTIVE PAIN MANAGEMENT, AND THE PAIN ASSESSMENT PROCESS?YES ORIENTED TO [facility] LATEX QUESTIONNAIRE LATEX ALLERGY : HAVE YOU EVER DEVELOPED ANY TYPE OF REACTION AFTER HANDLING LATEX PRODUCTS SUCH RUBBER GLOVES, CONDOMS, DIAPHRAGMS, BALLOONS, SOCKS, OR UNDERWEAR?NO LATEX ALLERGY : HAVE YOU EVER DEVELOPED ANY TYPE OF REACTION DURING OR AFTER DENTAL APPOINTMENT, VAGINAL/RECTAL EXAMINATION, SURGICAL PROCEDURE, OR ANY OTHER EXPOSURE?NO DATE ASKED : 08/08/2019 LATEX RISK : HAVE YOU EVER HAD ANY DIFFICULTY BREATHING OR HIVES AFTER EATING OR HANDLING ANY FRUITS, OR VEGETABLES; SUCH KIWI, BANANAS, STONE FRUITS, OR CHESTNUTSNO LATEX RISK : DO YOU HAVE A PREVIOUS PERSONAL HISTORY OF MORE THAN NINE SURGERIES, SPINA BIFIDA, OR REPEATED CATHERIZATIONS? NO LATEX RISK : ARE YOU FREQUENTLY EXPOSED TO LATEX PRODUCTS IN YOUR OCCUPATION?NO CAFFEINE 1-2/DAY. ADVANCE DIRECTIVE ADVANCE DIRECTIVE DISCUSSED WITH PATIENT:YES PT DECLINES ANY INFORMATION OR ASSISTANCE AT THIS TIME. SYNAGOGUE [id number] ANABAPTIST MARITAL STATUS: SINGLE, .. ALCOHOL SCREENING POINTS: 0, INTERPRETATION: NEGATIVE. OCCUPATION: [employer] - DISABLED. SEXUAL HX HAD SEX IN THE LAST 12 MONTHS (VAGINAL, ORAL, OR ANAL)?: YES, WITH: MEN ONLY, USE PROTECTION?: NO, HAVE YOU EVER HAD AN STD?: NO. HOSPITALIZATION/MAJOR DIAGNOSTIC PROCEDURE ABOVE CARTHAGE & [place] REVIEW OF SYSTEMS REVIEWED BY: PROVIDER: WALDO IBARRA MD . CONSTITUTIONAL: ANY CHANGE IN YOUR MEDICAL CONDITION? NO . CHILLS NO . FEVER NO . INFECTION: DO YOU HAVE NEW INFECTIONS? YES PT HAS BEEN DIAGNOSED WITH HCOVNL 63 VIRUS. SHE IS COUGHING, AFEBRILE AT PRESENT, DENIES SORE THROAT, GETS A LITTLE SHORT OF BREATH AT TIMES, SEEN AT EMERGENCY ROOM AND TESTED FOR COVID . DO YOU HAVE HISTORY OF MRSA? NO . MUSCULOSKELETAL: ANY NEW PATTERNS OF PAIN OR NUMBNESS? NO . GASTROENTEROLOGY: ANY NEW CHANGE IN BOWEL CONTROL? NO . GENITOURINARY: ANY NEW CHANGE IN BLADDER CONTROL? NO . IS THERE A CHANCE YOU COULD BE ? NO . HEMATOLOGY/LYMPH: DO YOU TAKE ANY BLOOD THINNERS? (FOR EXAMPLE- COUMADIN, PLAVIX, AGGRENOX, PLATEL, PRADAXA, OR XARELTO) NO . WHEN WAS YOUR LAST DOSE? DATE: TIME: . NEUROLOGY: HAVE YOU FALLEN IN THE PAST 12 MONTHS? NO . ANY NEW EXTREMITY NUMBNESS OR WEAKNESS? NO . CARDIOLOGY: DO YOU HAVE A PACEMAKER OR DEFIBRILLATOR? NO . RESPIRATORY: HAVE YOU BEEN SICK IN THE PAST WEEK? YES . FEVER NO . FLU LIKE SYMPTOMS? NO . COUGH YES FREQUENT COUGH . INTEGUMENTARY: DO YOU HAVE ANY RASHES OR OPEN SORES? NO . ALLERGIC/IMMUNO: ARE YOU ALLERGIC TO IV DYE? NO . ANY NEW ALLERGIES? NO . PSYCHIATRIC: DO YOU HAVE THOUGHTS OF HURTING YOURSELF OR SOMEONE ELSE? NO . ARE YOU ABUSED, NEGLECTED, OR IN AN UNSAFE ENVIRONMENT? NO . ENDOCRINOLOGY: ARE YOU DIABETIC? NO . OTHER: DO YOU NEED ANY PRESCRIPTIONS? NO . IF YES, PLEASE LIST: ____ . ANY NEW PROBLEMS WITH YOUR MEDICATIONS? NO . WHEN DID YOU LAST EAT? ____ . WHEN DID YOU LAST DRINK? ____ . WHAT DID YOU LAST DRINK? ____ . NAME OF PERSON DRIVING YOU HOME? ____ . DO YOU HAVE ANY OTHER QUESTIONS OR CONCERNS NO . VITAL SIGNS WT 250.8 LBS, HT 5'3'', BMI 44.42 INDEX, BP 134/61 MM HG, HR 97 /MIN, RR 18 /MIN, TEMP 96.6 F, OXYGEN SAT % 97%, NA INITIALS AW 0921. EXAMINATION GENERAL EXAMINATION: TELEMEDICINE VISIT. PATIENT CANNOT MOVE SHOULDER. PATIENT STATES SHOULDER IS TENDER TO TOUCH. ASSESSMENTS PAIN IN RIGHT SHOULDER - M25.511 (PRIMARY) OTHER CHRONIC PAIN - G89.29 NEURALGIA - M79.2 TREATMENT PAIN IN RIGHT SHOULDER CLINICAL NOTES: WE DISCUSSED SEVERAL ISSUES WITH MS. HARPER'S PAIN MANAGEMENT CASE. THE PATIENT STATES SHE RECEIVED A DENIAL FROM WORKER'S COMPENSATION FOR HER CERVICAL AND THORACIC MRI REQUESTS. THE PATIENT SAYS SHE WILL FAX OUR CLINIC A COPY SINCE WE HAVE REQUESTED FOR COPIES TWICE, BUT HAVE YET TO RECEIVE IT. WE DISCUSSED OPTIONS ON HER TREATMENT AND AGREED WITH THE PATIENT ON CONTINUE PERUSING A SCS TRIAL. THE PATIENT WILL FOLLOW UP WITH ME ON JANUARY 30, 2020 AT 9:45 A.M., POSSIBLY A PHONE VISIT AGAIN, TO DISCUSS THE DENIALS AND FURTHER OPTIONS. TOTAL TIME FOR TELEPHONE VISIT WAS 23 MINUTES. INSTRUCTIONS WERE GIVEN, QUESTIONS WERE ANSWERED, PATIENT REPORTS UNDERSTANDING AND AGREES WITH THE PLAN. I, URSULA VELÁSQUEZ, DOCUMENTED THE ABOVE INFORMATION ACTING A SCRIBE FOR DR. IBARRA. I HAVE REVIEWED THE ABOVE DOCUMENT, WRITTEN BY URSULA VELÁSQUEZ SCRIBPepe AND I VERIFY THAT IT IS ACCURATE. . DISPOSITION & COMMUNICATION FOLLOW UP 01/29 AT 9:45 AM; PHONE MEETING (REASON: PT TO FAX W/C MRI DENIAL ) ELECTRONICALLY SIGNED BY WALDO IBARRA MD, MD ON 12/31/2019 AT 05:24 PM EDT DISCLAIMER : THIS IS A VISIT SUMMARY EXTRACTED FROM THE [employer] CHART. IT IS NOT A COPY OF THE [employer] PROGRESS NOTE. ARACELI
== END ==
LOC: M PAIN 09:30
PROVIDERS: ATTEND Anesthesiology
DX: M25.511 Pain in right shoulder (principal); G89.29 Other chronic pain; M79.2 Neuralgia and neuritis, unspecified; E03.9 Hypothyroidism, unspecified; Z79.899 Other long term (current) drug therapy; Z88.5 Allergy status to narcotic agent

== ENCOUNTER → 2020-01-30 | Outpatient (CLI) | payer OTHER, BC ==
--- NOTE | 2020-02-03 04:42 | ECWPNPC ---
PATIENT NAME: SHARAD HARPER : 1975 GENDER: FEMALE VISIT DATE: 01/30/2020 DISCHARGE DATE: 01/30/20 1103 VISIT LOCKED DATE TIME: PHYSICIAN: WALDO IBARRA MD RESOURCE: WALDO IBARRA MD REASON FOR APPOINTMENT 1. DCS, PT/ TV VISIT HISTORY OF PRESENT ILLNESS HISTORY OF PRESENT ILLNESS: PAIN THE PATIENT DESCRIBES THE PAIN... PERMISSION FROM PATIENT WAS RECEIVED TO DO TELEPHONE OFFICE VISIT. 44 YEAR OLD FEMALE PATIENT WITH A HISTORY OF CHRONIC LOW BACK PAIN. THE PATIENT DESCRIBES HER PAIN ACHING, BURNING, HAVE IT ALL THE TIME, SHARP, STABBING PAIN IS CONSTANT, PINS AND NEEDLES COMES AND GOES WITH A PAIN SCORE OF 7-10/10 DEPENDING ON PHYSICAL ACTIVITY. 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 THE PATIENT SAYS SHE IS UNABLE TO TOUCH HER SHOULDER OR USE HER RIGHT ARM. THE PATIENT HAS HAD TWO SHOULDER SURGERIES DONE IN THE PAST AND HAS TRIED MEDICATION MANAGEMENT AND TOPICAL PRODUCTS, BUT HER PAIN PERSISTS. THE PATIENT IS USING GABAPENTIN 100 MG THAT SHE SAYS IS HELPING WITH SOME OF HER PAIN BUT IS NOT MAKING A HUGE DIFFERENCE. THE PATIENT SAYS SHE IS VERY UNCOMFORTABLE DUE TO HER PAIN. THE PATIENT DENIES UNEXPLAINED WEIGHT LOSS, FEVER, CHILLS, NEW CHANGES IN HER URINARY OR BOWEL CONTROL. FALL RISK SCREENING: SCREENING :NO FALLS REPORTED IN THE LAST YEAR CURRENT MEDICATIONS TAKING METOPROLOL-HYDROCHLOROTHIAZIDE 50-25 MG TABLET 1 TABLET WITH A MEAL ORALLY ONCE A DAY TAKING LEVOTHYROXINE SODIUM 175 MCG TABLET 1 TABLET ON AN EMPTY STOMACH IN THE MORNING ORALLY ONCE A DAY TAKING GABAPENTIN 100 MG CAPSULE 1 CAPSULE ORALLY FOR PAIN ONCE A DAY AT NIGHT, NOTES: TAKING DAILY TAKING OMEPRAZOLE 40 MG CAPSULE DELAYED RELEASE 1 CAPSULE ORALLY BID TAKING TOPIRAMATE ER _ CAPSULE EXTENDED RELEASE 24 HOUR 1 CAPSULE ORALLY ONCE A DAY TAKING ACETAMINOPHEN 325 MG CAPSULE 1 CAPSULE NEEDED ORALLY EVERY 4 HRS TAKING SIMVASTATIN _ TABLET 1 TABLET IN THE EVENING ORALLY UNSURE OF DOSE NOT-TAKING VOLTAREN 1 % GEL 1 STRIP TRANSDERMAL AT RIGHT SHOULDER THREE TIMES DAILY NEEDED FOR PAIN NOT-TAKING CARAFATE 1 GM TABLET 1 TABLET ON AN EMPTY STOMACH ORALLY DAILY, NOTES: CURRENTLY OUT OF NOT-TAKING IBUPROFEN 800 MG TABLET 1 TABLET WITH FOOD OR MILK NEEDED ORALLY FOR PAIN EVERY 8 HOURS NEEDED MDD2 NOT-TAKING DICLOFENAC SODIUM 75 MG TABLET DELAYED RELEASE 1 TABLET WITH FOOD OR MILK ORALLY PRN FOR PAIN TWICE A DAY MDD2 NOT-TAKING CELECOXIB 200 MG CAPSULE 1 CAPSULE WITH FOOD ORALLY FOR PAIN ONCE A DAY NOT-TAKING IBU 600 MG TABLET 1 TABLET ORALLY DAILY/PRN MEDICATION LIST REVIEWED AND RECONCILED WITH THE PATIENT PAST MEDICAL HISTORY SHINGLES MIGRAINE HEADACHES OBESITY ESOPHAGEAL REFLUX HYPOTHYROIDISM OVARIAN CYSTS HYPERLIPIDEMIA ABDOMINAL PAIN ESOPHAGEAL REFLUX HEMATURIA UTI ATYPICAL CP NAUSEA VOMITING BLOOD CLOTS AND KNICKED AORTA WITH HEMORRHAGE WITH C-SECION EOSINOPHILIC ESOPHAGITIS [id number] VIRUS ALLERGIES OXYCONTIN: SHORTNESS OF BREATH - ALLERGY OXYCODONE HCL: ANAPHYLAXIS - ALLERGY SURGICAL HISTORY ENDOMETRIOSIS -3X ADHESIONS , 12 POLYPS REMOVED ENDOSCOPY 1998 2011 COLONOSCOPY 2012 HYSTERECTOMY 2011 LEFT BUNIONECTOMY 1098 CHOLECYSTECTOMY 2013 ANAL FISSURE REPAIR OF NASAL FRACTURE 1985 FAMILY HISTORY FATHER: ALIVE 65 YRS, DIABETES, DIAGNOSED WITH DIABETES, HYPERTENSION MOTHER: 64 YRS, BREAST CANCER, DIABETES, HYPERTENSION, OTHER MALIGNANT NEOPLASM OF UNSPECIFIED SITE PATERNAL GRAND FATHER: PATERNAL GRAND MOTHER: 75 YRS, ALZHEIMER'S DEMENTIA MATERNAL GRAND FATHER: MATERNAL GRAND MOTHER: 72 YRS, HEART ATTACK 2 BROTHER(S) , 1 SISTER(S) - HEALTHY. 2 SON(S) , 1 DAUGHTER(S) - HEALTHY. SOCIAL HISTORY GENERAL: TOBACCO USE ARE YOU A:NONSMOKER LATEX QUESTIONNAIRE LATEX ALLERGY : HAVE YOU EVER DEVELOPED ANY TYPE OF REACTION AFTER HANDLING LATEX PRODUCTS SUCH RUBBER GLOVES, CONDOMS, DIAPHRAGMS, BALLOONS, SOCKS, OR UNDERWEAR?NO LATEX ALLERGY : HAVE YOU EVER DEVELOPED ANY TYPE OF REACTION DURING OR AFTER DENTAL APPOINTMENT, VAGINAL/RECTAL EXAMINATION, SURGICAL PROCEDURE, OR ANY OTHER EXPOSURE?NO DATE ASKED : 08/08/2019 LATEX RISK : HAVE YOU EVER HAD ANY DIFFICULTY BREATHING OR HIVES AFTER EATING OR HANDLING ANY FRUITS, OR VEGETABLES; SUCH KIWI, BANANAS, STONE FRUITS, OR CHESTNUTSNO LATEX RISK : DO YOU HAVE A PREVIOUS PERSONAL HISTORY OF MORE THAN NINE SURGERIES, SPINA BIFIDA, OR REPEATED CATHERIZATIONS? NO LATEX RISK : ARE YOU FREQUENTLY EXPOSED TO LATEX PRODUCTS IN YOUR OCCUPATION?NO BMI CARE GOAL FOLLOW-UP ABOVE NORMAL BMI FOLLOW-UPDIETARY MANAGEMENT EDUCATION, GUIDANCE, AND COUNSELING ALCOHOL SCREENING POINTS: 0, INTERPRETATION: NEGATIVE. RECREATIONAL DRUG USE DENIES. CAFFEINE 1-2/DAY. SEXUAL HX HAD SEX IN THE LAST 12 MONTHS (VAGINAL, ORAL, OR ANAL)?: YES, WITH: MEN ONLY, USE PROTECTION?: NO, HAVE YOU EVER HAD AN STD?: NO. ROMAN CATHOLIC [id number] TENRIISM LANGUAGE CITIZEN OF [place]. 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 OCCUPATION: [employer] - DISABLED. DIET: REGULAR. EXERCISE: NO REGULAR EXERCISE. MARITAL STATUS: SINGLE, .. OTHERS AT HOME: OTHER NON-RELATIVE, CHILDREN. NEW PATIENT PAIN DIARY PATIENT DESCRIBES PAIN :ACHING, BURNING, HAVE IT ALL THE TIME, SHARP, STABBING PAIN IS CONSTANT, PINS AND NEEDLES COMES AND GOES FROM 0-10, WHAT LEVEL IS YOUR PAIN TODAY?8 PAIN CLINIC PFS, CLERGY, PUBLIC HEALTH REFERRALS WAS THE PROVIDER NOTIFIED OF ANY PERTINENT INFO?YES HAS THE PATIENT BEEN EDUCATED REGARDING HIS/HER PLAN OF CARE?YES HAS THE PATIENT BEEN EDUCATED REGARDING PAIN, THE RISK FOR PAIN, THE IMPORTANCE OF EFFECTIVE PAIN MANAGEMENT, AND THE PAIN ASSESSMENT PROCESS?YES ORIENTED TO PMC ADVANCE DIRECTIVE ADVANCE DIRECTIVE DISCUSSED WITH PATIENT:YES PT DECLINES ANY INFORMATION OR ASSISTANCE AT THIS TIME. HOSPITALIZATION/MAJOR DIAGNOSTIC PROCEDURE ABOVE CARTHAGE & SYRACUSE REVIEW OF SYSTEMS REVIEWED BY: PROVIDER: WALDO IBARRA MD . CONSTITUTIONAL: ANY CHANGE IN YOUR MEDICAL CONDITION? NO . CHILLS NO . FEVER NO . INFECTION: DO YOU HAVE NEW INFECTIONS? NO . DO YOU HAVE HISTORY OF MRSA? NO . MUSCULOSKELETAL: ANY NEW PATTERNS OF PAIN OR NUMBNESS? NO . GASTROENTEROLOGY: ANY NEW CHANGE IN BOWEL CONTROL? NO . GENITOURINARY: ANY NEW CHANGE IN BLADDER CONTROL? NO . IS THERE A CHANCE YOU COULD BE ? NO . HEMATOLOGY/LYMPH: DO YOU TAKE ANY BLOOD THINNERS? (FOR EXAMPLE- COUMADIN, PLAVIX, AGGRENOX, PLATEL, PRADAXA, OR XARELTO) NO . WHEN WAS YOUR LAST DOSE? DATE: TIME: . NEUROLOGY: HAVE YOU FALLEN IN THE PAST 12 MONTHS? NO . ANY NEW EXTREMITY NUMBNESS OR WEAKNESS? NO . CARDIOLOGY: DO YOU HAVE A PACEMAKER OR DEFIBRILLATOR? NO . RESPIRATORY: HAVE YOU BEEN SICK IN THE PAST WEEK? NO . FEVER NO . FLU LIKE SYMPTOMS? NO . COUGH NO . INTEGUMENTARY: DO YOU HAVE ANY RASHES OR OPEN SORES? NO . ALLERGIC/IMMUNO: ARE YOU ALLERGIC TO IV DYE? NO . ANY NEW ALLERGIES? NO . PSYCHIATRIC: DO YOU HAVE THOUGHTS OF HURTING YOURSELF OR SOMEONE ELSE? NO . ARE YOU ABUSED, NEGLECTED, OR IN AN UNSAFE ENVIRONMENT? NO . ENDOCRINOLOGY: ARE YOU DIABETIC? NO . OTHER: DO YOU NEED ANY PRESCRIPTIONS? YES . IF YES, PLEASE LIST: GABAPENTIN . ANY NEW PROBLEMS WITH YOUR MEDICATIONS? NO . WHEN DID YOU LAST EAT? ____ . WHEN DID YOU LAST DRINK? ____ . WHAT DID YOU LAST DRINK? ____ . NAME OF PERSON DRIVING YOU HOME? ____ . DO YOU HAVE ANY OTHER QUESTIONS OR CONCERNS NO . EXAMINATION GENERAL EXAMINATION: TELEPHONE ENCOUNTER. PATIENT IS ALERT O X 3 AND COOPERATIVE. MRI OF THE RIGHT SHOULDER DONE ON 04/24/2017 SHOWS ROTATOR CUFF TENDON TEAR AND SUPRASPINATUS TENDINOSIS. OCTOBER 16, 2019 MRI DENIAL FOR DCS TRIAL IS PRESENT IN PATIENT'S CHART. ASSESSMENTS NEURALGIA - M79.2 (PRIMARY) PAIN IN RIGHT SHOULDER - M25.511 OTHER CHRONIC PAIN - G89.29 STATUS POST RIGHT SHOULDER OPERATION. TREATMENT NEURALGIA CLINICAL NOTES: WE DISCUSSED SEVERAL ISSUES WITH MS. HARPER'S PAIN MANAGEMENT CASE. WE RECEIVED A DENIAL FOR A CERVICAL AND THORACIC MRI THAT WAS REQUESTED FOR SUPPORT OF A DCS TRIAL TO ENSURE THERE IS ADEQUATE SPACE FOR THE DCS CABLES TO PASS THROUGH. I PLAN TO APPEAL THE DENIAL FOR THE MRI'S THAT ARE NECESSARY BEFORE MOVING FORWARD WITH THE TRIAL. THE PATIENT STATES SHE IS HAVING SEVERE RIGHT SHOULDER PAIN AND CANNOT FUNCTION DUE TO HER PAIN. THE PATIENT REPORTS BEING VERY FRUSTRATED WITH THE SITUATION AND INABILITY TO MOVE HER RIGHT SHOULDER. I WILL START THE PATIENT ON PENNSAID SOLUTION TWICE DAILY TO AID IN PAIN RELIEF. THE PATIENT IS USING GABAPENTIN THAT IS HELPING WITH SOME, BUT IS NOT COVERING ALL OF HER PAIN. THE TOTAL TIME FOR TODAY'S TELEPHONE VISIT WAS 16 MINUTES. INSTRUCTIONS WERE GIVEN, QUESTIONS WERE ANSWERED, PATIENT REPORTS UNDERSTANDING AND AGREES WITH THE PLAN. I, URSULA VELÁSQUEZ, DOCUMENTED THE ABOVE INFORMATION ACTING A SCRIBE FOR DR. IBARRA. I HAVE REVIEWED THE ABOVE DOCUMENT, WRITTEN BY URSULA HERNÁNDEZ AND I VERIFY THAT IT IS ACCURATE. . OTHERS START PENNSAID SOLUTION, 2 %, 2 PUMPS, TRANSDERMAL, TWICE A DAY FOR PAIN, 30 DAY(S), 1, REFILLS 1 NOTES: PATIENT CONSENTS TO TELEPHONE VISIT. VITAL SIGNS NOT OBTAINED DUE TO TELEPHONE VISIT. 01/30/2020 1025 NLJ. DISPOSITION & COMMUNICATION FOLLOW UP 4 WEEKS (REASON: F/UP PHYSICAL VISIT WITH DR Castro) ELECTRONICALLY SIGNED BY WALDO IBARRA MD, ON 02/02/2020 AT 11:26 AM EDT DISCLAIMER : THIS IS A VISIT SUMMARY EXTRACTED FROM THE [employer] CHART. IT IS NOT A COPY OF THE [employer] PROGRESS NOTE. MTDD
== END ==
LOC: M PAIN 09:45
PROVIDERS: ATTEND Anesthesiology
DX: M79.2 Neuralgia and neuritis, unspecified (principal); M25.511 Pain in right shoulder; G89.29 Other chronic pain; Z79.899 Other long term (current) drug therapy; Z88.5 Allergy status to narcotic agent

== ENCOUNTER → 2020-02-27 | Outpatient (CLI) | payer OTHER, BC ==
--- NOTE | 2020-03-02 03:58 | ECWPNPC ---
PATIENT NAME: SHARAD HARPER : 1975 GENDER: FEMALE VISIT DATE: 02/27/2020 DISCHARGE DATE: 02/27/20 1204 VISIT LOCKED DATE TIME: PHYSICIAN: WALDO IBARRA MD RESOURCE: WALDO IBARRA MD REASON FOR APPOINTMENT 1. F/UP PHYSICAL VISIT WITH DR Matthew TAVARES HISTORY OF PRESENT ILLNESS GENERAL: 44 YEAR OLD FEMALE PATIENT WITH A HISTORY OF CHRONIC RIGHT SHOULDER PAIN. THE PATIENT DESCRIBES HER PAIN ACHING, BURNING, HAVE IT ALL THE TIME, SHARP, STABBING PAIN IS CONSTANT, PINS AND NEEDLES COMES AND GOES WITH A PAIN SCORE OF 7-9/10 DEPENDING ON PHYSICAL ACTIVITY. 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 THE PATIENT SAYS SHE IS UNABLE TO TOUCH HER SHOULDER OR USE HER RIGHT ARM. THE PATIENT HAS HAD TWO SHOULDER SURGERIES DONE IN THE PAST AND HAS TRIED MEDICATION MANAGEMENT AND TOPICAL PRODUCTS, BUT HER PAIN PERSISTS. THE PATIENT IS USING GABAPENTIN 100 MG THAT SHE SAYS IS HELPING, BUT NOT COVERING ALL OF HER PAIN. THE PATIENT SAYS SHE WAS STARTED ON PENNSAID DROPS, HOWEVER IT IS NOT EFFECTIVE FOR HER PAIN. THE PATIENT DENIES UNEXPLAINED WEIGHT LOSS, FEVER, CHILLS, NEW CHANGES IN HER URINARY OR BOWEL CONTROL. THE PATIENT MENTIONED SHE HAS A HISTORY OF EOSINOPHILIC ESOPHAGITIS. FALL RISK SCREENING: SCREENING :NO FALLS REPORTED IN THE LAST YEAR PAIN SCREENING: PATIENT HAS A COMPLAINT OF ACUTE OR CHRONIC PAIN :YES PT STATES TODAY IS AN 8 TODAY LOCATION OF PAIN:RIGHT SHOULDER INTENSITY OF PAIN (SCALE OF 1 TO 10):8 WHAT DOES YOUR PAIN FEEL LIKE:ACHING, BURNING, CONTINOUS, SHARP, STABBING, TENDER, THROBBING, SORE, SHOOTING, OTHER PINS AND NEEDLES DURATION:CONSTANT, STEADY PAIN IS INCREASED BY:ACTIVITIES LAYING ON IT PAIN IS DECREASED BY: NOTHING NURSING NOTE: -. PAIN CENTER INTAKE QUESTIONS: DO YOU HAVE A HISTORY OF MRSA? :YES PT STATES THAT SHE HAD AN ISSUE WITH MRSA IN 2007, NO ONGOING ISSUE, NO OPEN AREA DO YOU TAKE A BLOOD THINNERS? :NO DO YOU HAVE ANY BLEEDING DISORDERS? :NO ANY NEW NUMBNESS OR WEAKNESS IN YOUR LEGS OR ARMS? :NO ANY PACEMAKER,DEFIBRILLATOR, OR DORSAL COLUMN STIMULATOR? :NO DO YOU HAVE ANY RASHES OR OPEN SORES? :NO ARE YOU ALLERGIC TO IV DYE? :NO ARE YOU DIABETIC? :NO ANY NEW PROBLEMS WITH YOUR MEDICATIONS? :NO HAVE YOU RECEIVED A VACCINE IN THE PAST 30 DAYS? :NO DO YOU PLAN TO RECEIVE A VACCINE IN THE NEXT 21 DAYS? :NO DO YOU NEED ANY PRESCRIPTION? :NO DO YOU TAKE ANY IMMUNOSUPPRESSIVE MEDICATIONS? :NO CURRENT MEDICATIONS TAKING METOPROLOL-HYDROCHLOROTHIAZIDE 50-25 MG TABLET 1 TABLET WITH A MEAL ORALLY ONCE A DAY TAKING LEVOTHYROXINE SODIUM 175 MCG TABLET 1 TABLET ON AN EMPTY STOMACH IN THE MORNING ORALLY ONCE A DAY TAKING GABAPENTIN 100 MG CAPSULE 1 CAPSULE ORALLY FOR PAIN ONCE A DAY AT NIGHT, NOTES: TAKING DAILY TAKING OMEPRAZOLE 40 MG CAPSULE DELAYED RELEASE 1 CAPSULE ORALLY BID TAKING TOPIRAMATE ER _ CAPSULE EXTENDED RELEASE 24 HOUR 1 CAPSULE ORALLY ONCE A DAY TAKING ACETAMINOPHEN 325 MG CAPSULE 1 CAPSULE NEEDED ORALLY EVERY 4 HRS TAKING SIMVASTATIN _ TABLET 1 TABLET IN THE EVENING ORALLY UNSURE OF DOSE TAKING PENNSAID 2 % SOLUTION 2 PUMPS TRANSDERMAL TWICE A DAY FOR PAIN TAKING DICLOFENAC SODIUM 1.5 % SOLUTION 40 DROPS TRANSDERMAL NEEDED FOR PAIN THREE TIMES DAILY NOT-TAKING VOLTAREN 1 % GEL 1 STRIP TRANSDERMAL AT RIGHT SHOULDER THREE TIMES DAILY NEEDED FOR PAIN NOT-TAKING CARAFATE 1 GM TABLET 1 TABLET ON AN EMPTY STOMACH ORALLY DAILY, NOTES: CURRENTLY OUT OF NOT-TAKING IBUPROFEN 800 MG TABLET 1 TABLET WITH FOOD OR MILK NEEDED ORALLY FOR PAIN EVERY 8 HOURS NEEDED MDD2 NOT-TAKING DICLOFENAC SODIUM 75 MG TABLET DELAYED RELEASE 1 TABLET WITH FOOD OR MILK ORALLY PRN FOR PAIN TWICE A DAY MDD2 NOT-TAKING CELECOXIB 200 MG CAPSULE 1 CAPSULE WITH FOOD ORALLY FOR PAIN ONCE A DAY NOT-TAKING IBU 600 MG TABLET 1 TABLET ORALLY DAILY/PRN MEDICATION LIST REVIEWED AND RECONCILED WITH THE PATIENT PAST MEDICAL HISTORY SHINGLES MIGRAINE HEADACHES OBESITY ESOPHAGEAL REFLUX HYPOTHYROIDISM OVARIAN CYSTS HYPERLIPIDEMIA ABDOMINAL PAIN ESOPHAGEAL REFLUX HEMATURIA UTI ATYPICAL CP NAUSEA VOMITING BLOOD CLOTS AND KNICKED AORTA WITH HEMORRHAGE WITH C-SECION EOSINOPHILIC ESOPHAGITIS [id number] VIRUS ALLERGIES OXYCONTIN: SHORTNESS OF BREATH - ALLERGY OXYCODONE HCL: ANAPHYLAXIS - ALLERGY SURGICAL HISTORY ENDOMETRIOSIS -3X ADHESIONS , 12 POLYPS REMOVED ENDOSCOPY 1998 2011 COLONOSCOPY 2013 HYSTERECTOMY 2012 LEFT BUNIONECTOMY 1098 CHOLECYSTECTOMY 2014 ANAL FISSURE REPAIR OF NASAL FRACTURE 1986 FAMILY HISTORY FATHER: ALIVE 65 YRS, DIABETES, DIAGNOSED WITH DIABETES, HYPERTENSION MOTHER: 64 YRS, BREAST CANCER, HYPERTENSION, OTHER MALIGNANT NEOPLASM OF UNSPECIFIED SITE, DIABETES PATERNAL GRAND FATHER: PATERNAL GRAND MOTHER: 75 YRS, ALZHEIMER'S DEMENTIA MATERNAL GRAND FATHER: MATERNAL GRAND MOTHER: 72 YRS, HEART ATTACK 2 BROTHER(S) , 1 SISTER(S) - HEALTHY. 2 SON(S) , 1 DAUGHTER(S) - HEALTHY. SOCIAL HISTORY GENERAL: TOBACCO USE ARE YOU A:NONSMOKER LATEX QUESTIONNAIRE LATEX ALLERGY : HAVE YOU EVER DEVELOPED ANY TYPE OF REACTION AFTER HANDLING LATEX PRODUCTS SUCH RUBBER GLOVES, CONDOMS, DIAPHRAGMS, BALLOONS, SOCKS, OR UNDERWEAR?NO LATEX ALLERGY : HAVE YOU EVER DEVELOPED ANY TYPE OF REACTION DURING OR AFTER DENTAL APPOINTMENT, VAGINAL/RECTAL EXAMINATION, SURGICAL PROCEDURE, OR ANY OTHER EXPOSURE?NO LATEX RISK : HAVE YOU EVER HAD ANY DIFFICULTY BREATHING OR HIVES AFTER EATING OR HANDLING ANY FRUITS, OR VEGETABLES; SUCH KIWI, BANANAS, STONE FRUITS, OR CHESTNUTSNO LATEX RISK : DO YOU HAVE A PREVIOUS PERSONAL HISTORY OF MORE THAN NINE SURGERIES, SPINA BIFIDA, OR REPEATED CATHERIZATIONS? NO LATEX RISK : ARE YOU FREQUENTLY EXPOSED TO LATEX PRODUCTS IN YOUR OCCUPATION?NO DATE ASKED : 02/26/2020 BMI CARE GOAL FOLLOW-UP ABOVE NORMAL BMI FOLLOW-UPDIETARY MANAGEMENT EDUCATION, GUIDANCE, AND COUNSELING ALCOHOL SCREENING POINTS: 0, INTERPRETATION: NEGATIVE. RECREATIONAL DRUG USE DENIES. CAFFEINE 1-2/DAY. SEXUAL HX HAD SEX IN THE LAST 12 MONTHS (VAGINAL, ORAL, OR ANAL)?: YES, WITH: MEN ONLY, USE PROTECTION?: NO, HAVE YOU EVER HAD AN STD?: NO. DENOMINATIONAL [id number] ADVENTISM LANGUAGE YORUBA. LEARNING BARRIERS / SPECIAL NEEDS CHANGE FROM LAST VISIT?NO BARRIERS TO LEARNING?NO HEARING IMPAIRED?NO VISION IMPAIRED?NO COGNITIVELY IMPAIRED?NO READINESS TO LEARN?YES LEARNING PREFERENCES?NO LEARNING CAPABILITIES PRESENT?YES EMOTIONAL BARRIERS?NO SPECIAL DEVICES?NO SORTER PRICER NEEDED?NO DOMESTIC VIOLENCE NONE. OCCUPATION: L[employer] IN[employer]Y - DISABLED. DIET: REGULAR. EXERCISE: NO REGULAR EXERCISE. MARITAL STATUS: SINGLE, .. OTHERS AT HOME: OTHER NON-RELATIVE, CHILDREN. NEW PATIENT PAIN DIARY PATIENT DESCRIBES PAIN :ACHING, BURNING, HAVE IT ALL THE TIME, SHARP, STABBING PAIN IS CONSTANT, PINS AND NEEDLES COMES AND GOES FROM 0-10, WHAT LEVEL IS YOUR PAIN TODAY?8 PAIN CLINIC PFS, CLERGY, PUBLIC HEALTH REFERRALS WAS THE PROVIDER NOTIFIED OF ANY PERTINENT INFO?YES HAS THE PATIENT BEEN EDUCATED REGARDING HIS/HER PLAN OF CARE?YES HAS THE PATIENT BEEN EDUCATED REGARDING PAIN, THE RISK FOR PAIN, THE IMPORTANCE OF EFFECTIVE PAIN MANAGEMENT, AND THE PAIN ASSESSMENT PROCESS?YES ORIENTED TO PMC ADVANCE DIRECTIVE ADVANCE DIRECTIVE DISCUSSED WITH PATIENT:YES PT DECLINES ANY INFORMATION OR ASSISTANCE AT THIS TIME. HOSPITALIZATION/MAJOR DIAGNOSTIC PROCEDURE ABOVE CARTHAGE & [place] REVIEW OF SYSTEMS CONSTITUTIONAL: ANY RECENT FEVER OR ILLNESS NO . CHILLS NO . GASTROENTEROLOGY: BOWEL INCONTINENCE NO, NOTHING NEW . ANY NEW CHANGE IN BOWEL CONTROL? NO . ABDOMINAL PAIN NO . CONSTIPATION NO . GENITOURINARY: ANY NEW CHANGE IN BLADDER CONTROL? NO . IS THERE A CHANCE YOU COULD BE ? NO . URINARY INCONTINENCE NO . CARDIOLOGY: CHEST PRESSURE YES . CHEST PAIN NO . RESPIRATORY: COUGH YES . SHORTNESS OF BREATH YES AT TIMES; EOSINOPHIEAL ESOPHAGITIS . VITAL SIGNS WT 247.2 LBS, HT 5'3'', BMI 43.78 INDEX, BP 171/81 MM HG, HR 95 /MIN, RR 18 /MIN, TEMP 97.5 F, OXYGEN SAT % 95%, NA INITIALS AW 1003, REVIEWED BY: KG. EXAMINATION GENERAL: PATIENT IS ALERT O X 3 AND COOPERATIVE. LUNGS CLEAR, TO AUSCULTATION. HEART: NO MURMURS OR GALLOPS; FACIAL CRANIAL NERVES ARE GROSSLY NORMAL. GOOD SYMMETRY OF FACIAL MUSCLE MOVEMENT. NORMAL VISUAL BYRD. PATIENT CANNOT LIFT OR MOVE RIGHT ARM. PATIENT CAN FLEX RIGHT ELBOW WITH DIFFICULTY, BUT CANNOT MOVE RIGHT SHOULDER. HYPERPATHIA OVER RIGHT SHOULDER. 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 RIGHT SHOULDER MRI DONE ON 05/14/2017 SHOWS MULTIPLE LESIONS, MILD SUPRASPINATUS TENDINOSIS, ACROMIAL BURSITIS, AND DELTOID BURSITIS. DCS PSYCHOLOGICAL EVALUATION DONE ON 09/22/2019 STATES PATIENT IS APPROVED FOR A DCS TRIAL. ASSESSMENTS PAIN IN RIGHT SHOULDER - M25.511 (PRIMARY) NECK PAIN - M54.2 OTHER CHRONIC PAIN - G89.29 PAIN IN THORACIC SPINE - M54.6 NEURALGIA - M79.2 EOSINOPHILIC ESOPHAGITIS - K20.0 TREATMENT PAIN IN RIGHT SHOULDER CLINICAL NOTES: WE DISCUSSED SEVERAL ISSUES WITH MS. HARPER'S PAIN MANAGEMENT CASE. THE PATIENT SAID SHE HAS RECENTLY RECEIVED AUTHORIZATION FOR A DCS TRIAL AND OFFERED TO BRING THE PAPERWORK IN TO HER NEXT VISIT IF NEEDED. I WILL REQUEST FOR A CERVICAL AND THORACIC MRI TO BE DONE THAT IS NECESSARY IN ORDER TO MOVE FORWARD WITH HER DCS TRIAL. THE MRI'S ARE TO CHECK TO ENSURE THERE IS ADEQUATE SPACING IN HER BACK FOR THE DCS CABLES TO PASS THROUGH DURING THE TRIAL. THE PATIENT HAD A LUMBAR MRI DONE IN MARCH OF 2019, THAT I CAN STILL USE TO REVIEW FOR HER TRIAL. I HAD A LONG CONVERSATION WITH THE PATIENT TODAY, FOR MORE THAN 30 MINUTES WITH OVER HALF OF THE TIME WAS SPENT DISCUSSING VARIOUS MODALITIES. THE PATIENT IS USING ONE TABLET OF GABAPENTIN AT NIGHT DUE IT CAUSING SLEEPINESS DURING THE DAY. THE PATIENT TRIED CYMBALTA IN THE PAST THAT CAUSED SIDE EFFECTS FOR HER. THE PATIENT ALSO TRIED DICLOFENAC, TENS UNIT, AND PENNSAID DROPS, BUT NONE OF THEM ADEQUATELY COVERED HER PAIN. THE PATIENT HAS TRIED LYRICA IN THE PAST, BUT SHE DOES NOT REMEMBER IF IT CAUSED ANY SIDE EFFECTS OR WAS EFFECTIVE FOR HER PAIN, BUT SHE WOULD LIKE TO TRY IT AGAIN. I ADVISED THE PATIENT TO FIRST DISCUSS WITH HER PRIMARY CARE PROVIDER BEFORE TRYING LYRICA, TO SEE IF THERE ARE ANY ACUTE TREATMENTS, LIKE AN EPIPEN, TO USE IN CASE OF REACTION FROM THE MEDICATION. THE PATIENT HAS A HISTORY OF REACTIONS FROM EOSINOPHILIC ESOPHAGITIS. THE PATIENT WILL HAVE A UTOX AND NARCOTIC AGREEMENT DONE TODAY. THE PATIENT WAS ADVISED TO KEEP HER LYRICA IN A SAFE PLACE. INSTRUCTIONS WERE GIVEN, QUESTIONS WERE ANSWERED, PATIENT REPORTS UNDERSTANDING AND AGREES WITH THE PLAN. I, URSULA VELÁSQUEZ, DOCUMENTED THE ABOVE INFORMATION ACTING A SCRIBE FOR DR. IBARRA. I HAVE REVIEWED THE ABOVE DOCUMENT, WRITTEN BY URSULA HACKETTIBPepe AND I VERIFY THAT IT IS ACCURATE. . NECK PAIN START PREGABALIN CAPSULE, 25 MG, 1 CAPSULE, ORALLY FOR PAIN, BID MDD2, 30 DAYS, 60, REFILLS 0 [facility] MRI SPINE, CERVICAL WITHOUT [id number] PAIN IN THORACIC SPINE [facility] MRI SPINE,THORACIC WITHOUT [id number] PROCEDURES PN WORKMANS' COMP OPINION IN YOUR OPINION, WAS THE INCIDENT THAT THE PATIENT DESCRIBED THE COMPETENT MEDICAL CAUSE OF THIS INJURY/ILLNESS? YES ARE THE PATIENT'S COMPLAINTS CONSISTENT WITH HIS/HER HISTORY OF THE INJURY/ILLNESS? YES IS THE PATIENT'S HISTORY OF THE INJURY/ILLNESS CONSISTENT WITH YOUR OBJECTIVE FINDING? YES WHAT IS THE PERCENTAGE OF TEMPORARY IMPAIRMENT? TOTAL = 100% IS THE PATIENT WORKING? YES DOCTOR ON SITE: WALDO CHÁVEZ MD PROCEDURE CODES FA211 ESTABILISHED PATIENT [facility] FACILITY CHARGE [id number] CURRENT MEDS W/DOSAGES DOCUMENTED G8730 PAIN ASSESS POS TOOL F/U PLAN DOC DISPOSITION & COMMUNICATION FOLLOW UP 2 MONTHS (REASON: RQSTING FOR ANOTHER CERVICAL/THORACIC MRI; CAN DO VIRTURAL VISIT) ELECTRONICALLY SIGNED BY WALDO IBARRA MD, MD ON 03/01/2020 AT 05:09 PM EDT DISCLAIMER : THIS IS A VISIT SUMMARY EXTRACTED FROM THE [employer] CHART. IT IS NOT A COPY OF THE [employer] PROGRESS NOTE. MTDD
== END ==
LOC: M PAIN 10:15
PROVIDERS: ATTEND Anesthesiology
DX: M25.511 Pain in right shoulder (principal); M54.2 Cervicalgia; G89.29 Other chronic pain; M54.6 Pain in thoracic spine; M79.2 Neuralgia and neuritis, unspecified; K20.0 Eosinophilic esophagitis

== ENCOUNTER → 2020-04-30 | Outpatient (POV) | payer OTHER, BC | LOC: M PAIN 10:00 | PROVIDERS: ATTEND Anesthesiology | DX: M25.511 Pain in right shoulder (principal) ==

== ENCOUNTER → 2020-06-29 | Outpatient (CLI) | payer OTHER, BC ==
--- NOTE | 2020-06-30 15:24 | ECWPNPC ---
PATIENT NAME: SHARAD HARPER : 1975 GENDER: FEMALE VISIT DATE: 06/29/2020 DISCHARGE DATE: 06/29/20 1539 VISIT LOCKED DATE TIME: PHYSICIAN: WALDO IBARRA MD RESOURCE: WALDO IBARRA MD REASON FOR APPOINTMENT 1. DISCUSS DCS HISTORY OF PRESENT ILLNESS GENERAL: 44-YEAR-OLD FEMALE PATIENT WITH A HISTORY OF CHRONIC RIGHT SHOULDER PAIN. THE PATIENT DESCRIBES THE PAIN BURNING, ACHING AND SEVERE WITH A PAIN SCORE RANGING FROM 8-10/10 DEPENDING ON PHYSICAL ACTIVITY. 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 THE PATIENT HAS TRIED MULTIPLE MEDICATIONS TO HELP WITH THE PAIN AND TO HELP HER TO SLEEP. UNFORTUNATELY, SHE HAS SEVERE ALLERGIES TO MANY MEDICATIONS THAT CAUSES HER THROAT TO CLOSE. HER SITUATION IS AFFECTING HER ACTIVITIES OF DAILY LIVING SUCH COOKING AND CLEANING. SHE IS HAVING DIFFICULTY MOVING THE RIGHT ARM. PATIENT DENIES UNEXPLAINABLE WEIGHT LOSS, FEVER, CHILLS, NEW CHANGES ON HER URINARY OR BOWEL CONTROL. FALL RISK SCREENING: SCREENING :NO FALLS REPORTED IN THE LAST YEAR PAIN SCREENING: PATIENT HAS A COMPLAINT OF ACUTE OR CHRONIC PAIN :YES LOCATION OF PAIN:RIGHT SHOULDER INTENSITY OF PAIN (SCALE OF 1 TO 10):9 RANGE OF 8 - 10 WHAT DOES YOUR PAIN FEEL LIKE:SHARP, STABBING, BURNING, CONTINOUS DURATION:CONSTANT, AWAKENS FROM SLEEP PAIN IS INCREASED BY:ACTIVITIES CONSTANT USE, EVERYTHING ,MAKES PAIN WORSE PAIN IS DECREASED BY:OTHERS NOTHING REALLY HELPS RIGHT NOW PAIN HAS INTERFERED WITH THE FOLLOWING:EMPLOYMENT, SLEEP, RELATIONSHIP WITH OTHERS, ENJOYMENT OF LIFE PLAN/GOALS/TREATMENT/INTERVENTION/FOLLOW UP:SEE PLAN NURSING NOTE: -. PAIN CENTER INTAKE QUESTIONS: DO YOU HAVE A HISTORY OF MRSA? :YES STAPH INFECTION IN RIGHT BREAST DO YOU TAKE A BLOOD THINNERS? :NO DO YOU HAVE ANY BLEEDING DISORDERS? :NO ANY NEW NUMBNESS OR WEAKNESS IN YOUR LEGS OR ARMS? :YES TORN ROTATOR CUFF IN LEFT SHOULDER, CAUSING INCREASED WEAKNESS. ANY PACEMAKER,DEFIBRILLATOR, OR DORSAL COLUMN STIMULATOR? :NO DO YOU HAVE ANY RASHES OR OPEN SORES? :NO ARE YOU ALLERGIC TO IV DYE? :NO ARE YOU DIABETIC? :NO ANY NEW PROBLEMS WITH YOUR MEDICATIONS? :NO HAVE YOU RECEIVED A VACCINE IN THE PAST 30 DAYS? :NO DO YOU PLAN TO RECEIVE A VACCINE IN THE NEXT 21 DAYS? :NO DO YOU NEED ANY PRESCRIPTION? :NO DO YOU TAKE ANY IMMUNOSUPPRESSIVE MEDICATIONS? :NO ANY HISTORY OF SEIZURES? :NO ANY HISTORY OF CARDIAC ISSUES OR EVENTS? :NO DO YOU HAVE SLEEP APNEA? :NO ANY RECENT HEAD INJURY? :NO DO YOU HAVE ANY NEW INFECTIONS? :NO IS THERE A CHANCE YOU COULD BE ? :NO ARE YOU BREAST FEEDING? :NO CURRENT MEDICATIONS TAKING METOPROLOL-HYDROCHLOROTHIAZIDE 50-25 MG TABLET 1 TABLET WITH A MEAL ORALLY ONCE A DAY TAKING LEVOTHYROXINE SODIUM 175 MCG TABLET 1 TABLET ON AN EMPTY STOMACH IN THE MORNING ORALLY ONCE A DAY TAKING ACETAMINOPHEN 325 MG CAPSULE 1 CAPSULE NEEDED ORALLY EVERY 4 HRS TAKING SIMVASTATIN _ TABLET 1 TABLET IN THE EVENING ORALLY UNSURE OF DOSE TAKING GABAPENTIN 100 MG CAPSULE 1 CAPSULE ORALLY FOR PAIN ONCE A DAY AT NIGHT, NOTES: TAKING DAILY TAKING NORTRIPTYLINE HCL 25 MG CAPSULE 1 CAPSULE ORALLY ONCE A DAY NOT-TAKING PENNSAID 2 % SOLUTION 2 PUMPS TRANSDERMAL TWICE A DAY FOR PAIN NOT-TAKING DICLOFENAC SODIUM 1.5 % SOLUTION 40 DROPS TRANSDERMAL NEEDED FOR PAIN THREE TIMES DAILY NOT-TAKING PREGABALIN 25 MG CAPSULE 1 CAPSULE ORALLY FOR PAIN BID MDD2 NOT-TAKING OMEPRAZOLE 40 MG CAPSULE DELAYED RELEASE 1 CAPSULE ORALLY BID NOT-TAKING TOPIRAMATE ER _ CAPSULE EXTENDED RELEASE 24 HOUR 1 CAPSULE ORALLY ONCE A DAY NOT-TAKING VOLTAREN 1 % GEL 1 STRIP TRANSDERMAL AT RIGHT SHOULDER THREE TIMES DAILY NEEDED FOR PAIN NOT-TAKING CARAFATE 1 GM TABLET 1 TABLET ON AN EMPTY STOMACH ORALLY DAILY, NOTES: CURRENTLY OUT OF NOT-TAKING IBUPROFEN 800 MG TABLET 1 TABLET WITH FOOD OR MILK NEEDED ORALLY FOR PAIN EVERY 8 HOURS NEEDED MDD2 NOT-TAKING DICLOFENAC SODIUM 75 MG TABLET DELAYED RELEASE 1 TABLET WITH FOOD OR MILK ORALLY PRN FOR PAIN TWICE A DAY MDD2 NOT-TAKING CELECOXIB 200 MG CAPSULE 1 CAPSULE WITH FOOD ORALLY FOR PAIN ONCE A DAY NOT-TAKING IBU 600 MG TABLET 1 TABLET ORALLY DAILY/PRN MEDICATION LIST REVIEWED AND RECONCILED WITH THE PATIENT PAST MEDICAL HISTORY SHINGLES MIGRAINE HEADACHES OBESITY ESOPHAGEAL REFLUX HYPOTHYROIDISM OVARIAN CYSTS HYPERLIPIDEMIA ABDOMINAL PAIN ESOPHAGEAL REFLUX HEMATURIA UTI ATYPICAL CP NAUSEA VOMITING BLOOD CLOTS AND KNICKED AORTA WITH HEMORRHAGE WITH EOSINOPHILIC ESOPHAGITIS [id number] VIRUS LEGALLY BLIND ALLERGIES OXYCONTIN: SHORTNESS OF BREATH - ALLERGY OXYCODONE HCL: ANAPHYLAXIS - ALLERGY SURGICAL HISTORY ENDOMETRIOSIS -3X ADHESIONS , 12 POLYPS REMOVED ENDOSCOPY 1998 2011 COLONOSCOPY 2013 HYSTERECTOMY 2012 LEFT BUNIONECTOMY 1098 CHOLECYSTECTOMY 2013 ANAL FISSURE REPAIR OF NASAL FRACTURE 1986 FAMILY HISTORY FATHER: ALIVE 65 YRS, DIABETES, DIAGNOSED WITH HYPERTENSION, DIABETES MOTHER: 64 YRS, BREAST CANCER, HYPERTENSION, DIABETES, OTHER MALIGNANT NEOPLASM OF UNSPECIFIED SITE PATERNAL GRAND FATHER: PATERNAL GRAND MOTHER: 75 YRS, ALZHEIMER'S DEMENTIA MATERNAL GRAND FATHER: MATERNAL GRAND MOTHER: 72 YRS, HEART ATTACK 2 BROTHER(S) , 1 SISTER(S) - HEALTHY. 2 SON(S) , 1 DAUGHTER(S) - HEALTHY. SOCIAL HISTORY GENERAL: TOBACCO USE ARE YOU A:NONSMOKER LATEX QUESTIONNAIRE LATEX ALLERGY : HAVE YOU EVER DEVELOPED ANY TYPE OF REACTION AFTER HANDLING LATEX PRODUCTS SUCH RUBBER GLOVES, CONDOMS, DIAPHRAGMS, BALLOONS, SOCKS, OR UNDERWEAR?NO LATEX ALLERGY : HAVE YOU EVER DEVELOPED ANY TYPE OF REACTION DURING OR AFTER DENTAL APPOINTMENT, VAGINAL/RECTAL EXAMINATION, SURGICAL PROCEDURE, OR ANY OTHER EXPOSURE?NO LATEX RISK : HAVE YOU EVER HAD ANY DIFFICULTY BREATHING OR HIVES AFTER EATING OR HANDLING ANY FRUITS, OR VEGETABLES; SUCH KIWI, BANANAS, STONE FRUITS, OR CHESTNUTSNO LATEX RISK : DO YOU HAVE A PREVIOUS PERSONAL HISTORY OF MORE THAN NINE SURGERIES, SPINA BIFIDA, OR REPEATED CATHERIZATIONS? NO LATEX RISK : ARE YOU FREQUENTLY EXPOSED TO LATEX PRODUCTS IN YOUR OCCUPATION?NO DATE ASKED : 06/29/2020 BMI CARE GOAL FOLLOW-UP ABOVE NORMAL BMI FOLLOW-UPDIETARY MANAGEMENT EDUCATION, GUIDANCE, AND COUNSELING ALCOHOL SCREENING POINTS: 0, INTERPRETATION: NEGATIVE. RECREATIONAL DRUG USE DENIES. CAFFEINE 1-2/DAY. SEXUAL HX HAD SEX IN THE LAST 12 MONTHS (VAGINAL, ORAL, OR ANAL)?: YES, WITH: MEN ONLY, USE PROTECTION?: NO, HAVE YOU EVER HAD AN STD?: NO. YAZIDISM [id number] RESTORATIONISM LANGUAGE SERBIAN. LEARNING BARRIERS / SPECIAL NEEDS CHANGE FROM LAST VISIT?YES 06/25/20 BARRIERS TO LEARNING?NO HEARING IMPAIRED?NO VISION IMPAIRED?YES : LEGALLY BLIND COGNITIVELY IMPAIRED?NO READINESS TO LEARN?YES LEARNING PREFERENCES?NO LEARNING CAPABILITIES PRESENT?YES EMOTIONAL BARRIERS?NO SPECIAL DEVICES?NO DIRECTOR OF ANALYTICS NEEDED?NO DOMESTIC VIOLENCE NONE. OCCUPATION: [employer] - DISABLED. DIET: REGULAR. EXERCISE: NO REGULAR EXERCISE. MARITAL STATUS: SINGLE, .. OTHERS AT HOME: OTHER NON-RELATIVE, CHILDREN. PAIN CLINIC PFS, CLERGY, PUBLIC HEALTH REFERRALS WAS THE PROVIDER NOTIFIED OF ANY PERTINENT INFO?YES HAS THE PATIENT BEEN EDUCATED REGARDING HIS/HER PLAN OF CARE?YES HAS THE PATIENT BEEN EDUCATED REGARDING PAIN, THE RISK FOR PAIN, THE IMPORTANCE OF EFFECTIVE PAIN MANAGEMENT, AND THE PAIN ASSESSMENT PROCESS?YES ORIENTED TO [facility] ADVANCE DIRECTIVE ADVANCE DIRECTIVE DISCUSSED WITH PATIENT:YES PT DECLINES ANY INFORMATION OR ASSISTANCE AT THIS TIME. HOSPITALIZATION/MAJOR DIAGNOSTIC PROCEDURE ABOVE CARTH[place] & [place] VITAL SIGNS WT 245 LBS, HT 5'3'', BMI 43.40 INDEX, BP 146/66 MM HG, HR 88 /MIN, RR 18 /MIN, TEMP 97.4 F, OXYGEN SAT % 97%, NA INITIALS SC 15:11, REVIEWED BY: GRISELDA. EXAMINATION GENERAL EXAMINATION: THE PATIENT IS ALERT, ORIENTED TIMES THREE AND COOPERATIVE. HEART SHOWS REGULAR RHYTHM, NO MURMURS AND NO GALLOPS. LUNGS ARE CLEAR TO AUSCULTATION. THE RIGHT SHOULDER IS LOWER THAN THE LEFT SHOULDER. SHE CAN ABDUCT THE RIGHT ARM CLOSE TO THE SHOULDER LEVEL, SHE REPORTS PAIN. DECREASED HAND DIRECTOR BUSINESS MANAGEMENT ON THE RIGHT. THERE IS TENDERNESS IN THE RIGHT ARM WHEN I MOVE IT. THERE IS SEVERE HYPERPATHIA IN THE SHOULDER. THE WORSE PAIN IS OVER THE RIGHT SHOULDER. WHEN I TOUCH IT, SHE REPORTS PAIN OVER THE RIGHT ARM. THERE ARE SOME TRIGGER POINTS IN THE RIGHT SHOULDER WITH TENDERNESS AND RESTRICTION OF MOVEMENT AND BANDS OF TISSUE. MRI OF THE RIGHT SHOULDER DATED 04/24/2017 SHOWS TENDINOSIS OF THE SUPRASPINATUS LIGAMENT, ARTHROSIS OF THE AC JOINT, STATUS POST SHOULDER SURGERY. 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 HARPER. WE WILL MOVE FORWARD WITH THE DCS TRIAL. WE ARE STILL WAITING FOR THE AUTHORIZATION FOR THE MRI. THE PSYCHOLOGICAL EVALUATION WAS DONE. AFTER I HAVE THE MRI, WE WILL REQUEST AUTHORIZATION FOR THE TRIAL. THE PATIENT HAS HAD REACTIONS TO MEDICATIONS IN THE PAST, INJECTIONS HAVE NOT HELPED AND SHE HAS HAD MULTIPLE SURGERIES. THE PATIENT IS EXTREMELY AGGRAVATED WITH THE SITUATION AND THAT IT IS AFFECTING SIGNIFICANTLY HER ABILITY TO PERFORM HER ACTIVITIES OF DAILY LIVING. I WILL SEE SHARAD IN A FOLLOW UP. THE PATIENT REPORTS UNDERSTANDING AND IS IN AGREEMENT WITH THE TREATMENT PLAN. GEOVANY Shin, DOCUMENTED THE ABOVE INFORMATION ACTING A SCRIBE FOR DR. IBARRA. I HAVE REVIEWED THE ABOVE DOCUMENT, WRITTEN BY GEOVANY MASSEY, CHIEF PSYCHOLOGY, AND I VERIFY THAT IT IS ACCURATE. PROCEDURES PN WORKMANS' COMP OPINION IN YOUR OPINION, WAS THE INCIDENT THAT THE PATIENT DESCRIBED THE COMPETENT MEDICAL CAUSE OF THIS INJURY/ILLNESS? YES ARE THE PATIENT'S COMPLAINTS CONSISTENT WITH HIS/HER HISTORY OF THE INJURY/ILLNESS? YES IS THE PATIENT'S HISTORY OF THE INJURY/ILLNESS CONSISTENT WITH YOUR OBJECTIVE FINDING? YES WHAT IS THE PERCENTAGE OF TEMPORARY IMPAIRMENT? TOTAL = 100% . IS THE PATIENT WORKING? NO . DOCTOR ON SITE: WALDO CHÁVEZ MD PROCEDURE CODES FA211 ESTABILISHED PATIENT [facility] CHARGE [id number] OFFICE/OUTPATIENT VISIT EST DISPOSITION & COMMUNICATION FOLLOW UP [address] Castro (REASON: DISCUSS DCS) ELECTRONICALLY SIGNED BY WALDO IBARRA MD, ON 06/30/2020 AT 03:07 PM EDT DISCLAIMER : THIS IS A VISIT SUMMARY EXTRACTED FROM THE [email or web address] CHART. IT IS NOT A COPY OF THE [employer] PROGRESS NOTE. ARACELI
--- NOTE | 2020-06-30 15:25 | ECWPNPC ---
PATIENT NAME: SHARAD HARPER : 1975 GENDER: FEMALE VISIT DATE: 06/29/2020 DISCHARGE DATE: 06/29/20 1539 VISIT LOCKED DATE TIME: PHYSICIAN: WALDO IBARRA MD RESOURCE: WALDO IBARRA MD REASON FOR APPOINTMENT 1. DISCUSS DCS HISTORY OF PRESENT ILLNESS GENERAL: 44-YEAR-OLD FEMALE PATIENT WITH A HISTORY OF CHRONIC RIGHT SHOULDER PAIN. THE PATIENT DESCRIBES THE PAIN BURNING, ACHING AND SEVERE WITH A PAIN SCORE RANGING FROM 8-10/10 DEPENDING ON PHYSICAL ACTIVITY. THE PATIENT SUFFERED FROM A WORK RELATED INJURY WHILE WORKING FOR THE [employer] ON 08/27/2014 WHEN SHE FELT A POP IN THE SHOULDER WHILE LIFTING HEAVY BOXES. THE PATIENT HAS TRIED MULTIPLE MEDICATIONS TO HELP WITH THE PAIN AND TO HELP HER TO SLEEP. UNFORTUNATELY, SHE HAS SEVERE ALLERGIES TO MANY MEDICATIONS THAT CAUSES HER THROAT TO CLOSE. HER SITUATION IS AFFECTING HER ACTIVITIES OF DAILY LIVING SUCH COOKING AND CLEANING. SHE IS HAVING DIFFICULTY MOVING THE RIGHT ARM. PATIENT DENIES UNEXPLAINABLE WEIGHT LOSS, FEVER, CHILLS, NEW CHANGES ON HER URINARY OR BOWEL CONTROL. FALL RISK SCREENING: SCREENING :NO FALLS REPORTED IN THE LAST YEAR PAIN SCREENING: PATIENT HAS A COMPLAINT OF ACUTE OR CHRONIC PAIN :YES LOCATION OF PAIN:RIGHT SHOULDER INTENSITY OF PAIN (SCALE OF 1 TO 10):9 RANGE OF 8 - 10 WHAT DOES YOUR PAIN FEEL LIKE:SHARP, STABBING, BURNING, CONTINOUS DURATION:CONSTANT, AWAKENS FROM SLEEP PAIN IS INCREASED BY:ACTIVITIES CONSTANT USE, EVERYTHING ,MAKES PAIN WORSE PAIN IS DECREASED BY:OTHERS NOTHING REALLY HELPS RIGHT NOW PAIN HAS INTERFERED WITH THE FOLLOWING:EMPLOYMENT, SLEEP, RELATIONSHIP WITH OTHERS, ENJOYMENT OF LIFE PLAN/GOALS/TREATMENT/INTERVENTION/FOLLOW UP:SEE PLAN NURSING NOTE: -. PAIN CENTER INTAKE QUESTIONS: DO YOU HAVE A HISTORY OF MRSA? :YES STAPH INFECTION IN RIGHT BREAST DO YOU TAKE A BLOOD THINNERS? :NO DO YOU HAVE ANY BLEEDING DISORDERS? :NO ANY NEW NUMBNESS OR WEAKNESS IN YOUR LEGS OR ARMS? :YES TORN ROTATOR CUFF IN LEFT SHOULDER, CAUSING INCREASED WEAKNESS. ANY PACEMAKER,DEFIBRILLATOR, OR DORSAL COLUMN STIMULATOR? :NO DO YOU HAVE ANY RASHES OR OPEN SORES? :NO ARE YOU ALLERGIC TO IV DYE? :NO ARE YOU DIABETIC? :NO ANY NEW PROBLEMS WITH YOUR MEDICATIONS? :NO HAVE YOU RECEIVED A VACCINE IN THE PAST 30 DAYS? :NO DO YOU PLAN TO RECEIVE A VACCINE IN THE NEXT 21 DAYS? :NO DO YOU NEED ANY PRESCRIPTION? :NO DO YOU TAKE ANY IMMUNOSUPPRESSIVE MEDICATIONS? :NO ANY HISTORY OF SEIZURES? :NO ANY HISTORY OF CARDIAC ISSUES OR EVENTS? :NO DO YOU HAVE SLEEP APNEA? :NO ANY RECENT HEAD INJURY? :NO DO YOU HAVE ANY NEW INFECTIONS? :NO IS THERE A CHANCE YOU COULD BE ? :NO ARE YOU BREAST FEEDING? :NO CURRENT MEDICATIONS TAKING METOPROLOL-HYDROCHLOROTHIAZIDE 50-25 MG TABLET 1 TABLET WITH A MEAL ORALLY ONCE A DAY TAKING LEVOTHYROXINE SODIUM 175 MCG TABLET 1 TABLET ON AN EMPTY STOMACH IN THE MORNING ORALLY ONCE A DAY TAKING ACETAMINOPHEN 325 MG CAPSULE 1 CAPSULE NEEDED ORALLY EVERY 4 HRS TAKING SIMVASTATIN _ TABLET 1 TABLET IN THE EVENING ORALLY UNSURE OF DOSE TAKING GABAPENTIN 100 MG CAPSULE 1 CAPSULE ORALLY FOR PAIN ONCE A DAY AT NIGHT, NOTES: TAKING DAILY TAKING NORTRIPTYLINE HCL 25 MG CAPSULE 1 CAPSULE ORALLY ONCE A DAY NOT-TAKING PENNSAID 2 % SOLUTION 2 PUMPS TRANSDERMAL TWICE A DAY FOR PAIN NOT-TAKING DICLOFENAC SODIUM 1.5 % SOLUTION 40 DROPS TRANSDERMAL NEEDED FOR PAIN THREE TIMES DAILY NOT-TAKING PREGABALIN 25 MG CAPSULE 1 CAPSULE ORALLY FOR PAIN BID MDD2 NOT-TAKING OMEPRAZOLE 40 MG CAPSULE DELAYED RELEASE 1 CAPSULE ORALLY BID NOT-TAKING TOPIRAMATE ER _ CAPSULE EXTENDED RELEASE 24 HOUR 1 CAPSULE ORALLY ONCE A DAY NOT-TAKING VOLTAREN 1 % GEL 1 STRIP TRANSDERMAL AT RIGHT SHOULDER THREE TIMES DAILY NEEDED FOR PAIN NOT-TAKING CARAFATE 1 GM TABLET 1 TABLET ON AN EMPTY STOMACH ORALLY DAILY, NOTES: CURRENTLY OUT OF NOT-TAKING IBUPROFEN 800 MG TABLET 1 TABLET WITH FOOD OR MILK NEEDED ORALLY FOR PAIN EVERY 8 HOURS NEEDED MDD2 NOT-TAKING DICLOFENAC SODIUM 75 MG TABLET DELAYED RELEASE 1 TABLET WITH FOOD OR MILK ORALLY PRN FOR PAIN TWICE A DAY MDD2 NOT-TAKING CELECOXIB 200 MG CAPSULE 1 CAPSULE WITH FOOD ORALLY FOR PAIN ONCE A DAY NOT-TAKING IBU 600 MG TABLET 1 TABLET ORALLY DAILY/PRN MEDICATION LIST REVIEWED AND RECONCILED WITH THE PATIENT PAST MEDICAL HISTORY SHINGLES MIGRAINE HEADACHES OBESITY ESOPHAGEAL REFLUX HYPOTHYROIDISM OVARIAN CYSTS HYPERLIPIDEMIA ABDOMINAL PAIN ESOPHAGEAL REFLUX HEMATURIA UTI ATYPICAL CP NAUSEA VOMITING BLOOD CLOTS AND KNICKED AORTA WITH HEMORRHAGE WITH EOSINOPHILIC ESOPHAGITIS [id number] VIRUS LEGALLY BLIND ALLERGIES OXYCONTIN: SHORTNESS OF BREATH - ALLERGY OXYCODONE HCL: ANAPHYLAXIS - ALLERGY SURGICAL HISTORY ENDOMETRIOSIS -3X ADHESIONS , 12 POLYPS REMOVED ENDOSCOPY 1998 2011 COLONOSCOPY 2013 HYSTERECTOMY 2012 LEFT BUNIONECTOMY 1098 CHOLECYSTECTOMY 2013 ANAL FISSURE REPAIR OF NASAL FRACTURE 1986 FAMILY HISTORY FATHER: ALIVE 65 YRS, DIABETES, DIAGNOSED WITH HYPERTENSION, DIABETES MOTHER: 64 YRS, BREAST CANCER, HYPERTENSION, DIABETES, OTHER MALIGNANT NEOPLASM OF UNSPECIFIED SITE PATERNAL GRAND FATHER: PATERNAL GRAND MOTHER: 75 YRS, ALZHEIMER'S DEMENTIA MATERNAL GRAND FATHER: MATERNAL GRAND MOTHER: 72 YRS, HEART ATTACK 2 BROTHER(S) , 1 SISTER(S) - HEALTHY. 2 SON(S) , 1 DAUGHTER(S) - HEALTHY. SOCIAL HISTORY GENERAL: TOBACCO USE ARE YOU A:NONSMOKER LATEX QUESTIONNAIRE LATEX ALLERGY : HAVE YOU EVER DEVELOPED ANY TYPE OF REACTION AFTER HANDLING LATEX PRODUCTS SUCH RUBBER GLOVES, CONDOMS, DIAPHRAGMS, BALLOONS, SOCKS, OR UNDERWEAR?NO LATEX ALLERGY : HAVE YOU EVER DEVELOPED ANY TYPE OF REACTION DURING OR AFTER DENTAL APPOINTMENT, VAGINAL/RECTAL EXAMINATION, SURGICAL PROCEDURE, OR ANY OTHER EXPOSURE?NO LATEX RISK : HAVE YOU EVER HAD ANY DIFFICULTY BREATHING OR HIVES AFTER EATING OR HANDLING ANY FRUITS, OR VEGETABLES; SUCH KIWI, BANANAS, STONE FRUITS, OR CHESTNUTSNO LATEX RISK : DO YOU HAVE A PREVIOUS PERSONAL HISTORY OF MORE THAN NINE SURGERIES, SPINA BIFIDA, OR REPEATED CATHERIZATIONS? NO LATEX RISK : ARE YOU FREQUENTLY EXPOSED TO LATEX PRODUCTS IN YOUR OCCUPATION?NO DATE ASKED : 06/29/2020 BMI CARE GOAL FOLLOW-UP ABOVE NORMAL BMI FOLLOW-UPDIETARY MANAGEMENT EDUCATION, GUIDANCE, AND COUNSELING ALCOHOL SCREENING POINTS: 0, INTERPRETATION: NEGATIVE. RECREATIONAL DRUG USE DENIES. CAFFEINE 1-2/DAY. SEXUAL HX HAD SEX IN THE LAST 12 MONTHS (VAGINAL, ORAL, OR ANAL)?: YES, WITH: MEN ONLY, USE PROTECTION?: NO, HAVE YOU EVER HAD AN STD?: NO. MANDAEISM [id number] CHRISTIANITY LANGUAGE SYRIAC. LEARNING BARRIERS / SPECIAL NEEDS CHANGE FROM LAST VISIT?YES 06/25/20 BARRIERS TO LEARNING?NO HEARING IMPAIRED?NO VISION IMPAIRED?YES : LEGALLY BLIND COGNITIVELY IMPAIRED?NO READINESS TO LEARN?YES LEARNING PREFERENCES?NO LEARNING CAPABILITIES PRESENT?YES EMOTIONAL BARRIERS?NO SPECIAL DEVICES?NO EXHIBITS MANAGER NEEDED?NO DOMESTIC VIOLENCE NONE. OCCUPATION: [employer] - DISABLED. DIET: REGULAR. EXERCISE: NO REGULAR EXERCISE. MARITAL STATUS: SINGLE, .. OTHERS AT HOME: OTHER NON-RELATIVE, CHILDREN. PAIN CLINIC PFS, CLERGY, PUBLIC HEALTH REFERRALS WAS THE PROVIDER NOTIFIED OF ANY PERTINENT INFO?YES HAS THE PATIENT BEEN EDUCATED REGARDING HIS/HER PLAN OF CARE?YES HAS THE PATIENT BEEN EDUCATED REGARDING PAIN, THE RISK FOR PAIN, THE IMPORTANCE OF EFFECTIVE PAIN MANAGEMENT, AND THE PAIN ASSESSMENT PROCESS?YES ORIENTED TO [facility] ADVANCE DIRECTIVE ADVANCE DIRECTIVE DISCUSSED WITH PATIENT:YES PT DECLINES ANY INFORMATION OR ASSISTANCE AT THIS TIME. HOSPITALIZATION/MAJOR DIAGNOSTIC PROCEDURE ABOVE [place] & [place] VITAL SIGNS WT 245 LBS, HT 5'3'', BMI 43.40 INDEX, BP 146/66 MM HG, HR 88 /MIN, RR 18 /MIN, TEMP 97.4 F, OXYGEN SAT % 97%, NA INITIALS SC 15:11, REVIEWED BY: GRISELDA. EXAMINATION GENERAL EXAMINATION: THE PATIENT IS ALERT, ORIENTED TIMES THREE AND COOPERATIVE. HEART SHOWS REGULAR RHYTHM, NO MURMURS AND NO GALLOPS. LUNGS ARE CLEAR TO AUSCULTATION. THE RIGHT SHOULDER IS LOWER THAN THE LEFT SHOULDER. SHE CAN ABDUCT THE RIGHT ARM CLOSE TO THE SHOULDER LEVEL, SHE REPORTS PAIN. DECREASED HAND GARNISHMENT SPECIALIST ON THE RIGHT. THERE IS TENDERNESS IN THE RIGHT ARM WHEN I MOVE IT. THERE IS SEVERE HYPERPATHIA IN THE SHOULDER. THE WORSE PAIN IS OVER THE RIGHT SHOULDER. WHEN I TOUCH IT, SHE REPORTS PAIN OVER THE RIGHT ARM. THERE ARE SOME TRIGGER POINTS IN THE RIGHT SHOULDER WITH TENDERNESS AND RESTRICTION OF MOVEMENT AND BANDS OF TISSUE. MRI OF THE RIGHT SHOULDER DATED 04/24/2017 SHOWS TENDINOSIS OF THE SUPRASPINATUS LIGAMENT, ARTHROSIS OF THE AC JOINT, STATUS POST SHOULDER SURGERY. 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 HARPER. WE WILL MOVE FORWARD WITH THE DCS TRIAL. WE ARE STILL WAITING FOR THE AUTHORIZATION FOR THE MRI. THE PSYCHOLOGICAL EVALUATION WAS DONE. AFTER I HAVE THE MRI, WE WILL REQUEST AUTHORIZATION FOR THE TRIAL. THE PATIENT HAS HAD REACTIONS TO MEDICATIONS IN THE PAST, INJECTIONS HAVE NOT HELPED AND SHE HAS HAD MULTIPLE SURGERIES. THE PATIENT IS EXTREMELY AGGRAVATED WITH THE SITUATION AND THAT IT IS AFFECTING SIGNIFICANTLY HER ABILITY TO PERFORM HER ACTIVITIES OF DAILY LIVING. I WILL SEE SHARAD IN A FOLLOW UP. THE PATIENT REPORTS UNDERSTANDING AND IS IN AGREEMENT WITH THE TREATMENT PLAN. GEOVANY Shin, DOCUMENTED THE ABOVE INFORMATION ACTING A SCRIBE FOR DR. IBARRA. I HAVE REVIEWED THE ABOVE DOCUMENT, WRITTEN BY GEOVANY MASSEY, [employer] ROUND ATTENDANT, AND I VERIFY THAT IT IS ACCURATE. PROCEDURES PN WORKMANS' COMP OPINION IN YOUR OPINION, WAS THE INCIDENT THAT THE PATIENT DESCRIBED THE COMPETENT MEDICAL CAUSE OF THIS INJURY/ILLNESS? YES ARE THE PATIENT'S COMPLAINTS CONSISTENT WITH HIS/HER HISTORY OF THE INJURY/ILLNESS? YES IS THE PATIENT'S HISTORY OF THE INJURY/ILLNESS CONSISTENT WITH YOUR OBJECTIVE FINDING? YES WHAT IS THE PERCENTAGE OF TEMPORARY IMPAIRMENT? TOTAL = 100% . IS THE PATIENT WORKING? NO . DOCTOR ON SITE: WALDO CHÁVEZ MD PROCEDURE CODES FA211 ESTABILISHED PATIENT [facility] CHARGE [id number] OFFICE/OUTPATIENT VISIT EST DISPOSITION & COMMUNICATION FOLLOW UP [address] Castro (REASON: DISCUSS DCS) ELECTRONICALLY SIGNED BY WALDO IBARRA MD, ON 06/30/2020 AT 03:07 PM EDT DISCLAIMER : THIS IS A VISIT SUMMARY EXTRACTED FROM THE [employer] CHART. IT IS NOT A COPY OF THE [employer] PROGRESS NOTE. ARACELI
== END ==
LOC: M PAIN 15:00
PROVIDERS: ATTEND Anesthesiology
DX: M25.511 Pain in right shoulder (principal); M79.2 Neuralgia and neuritis, unspecified; Z98.890 Other specified postprocedural states; K21.9 Gastro-esophageal reflux disease without esophagitis; G43.909 Migraine, unspecified, not intractable, without status migrainosus; E66.9 Obesity, unspecified; E78.5 Hyperlipidemia, unspecified; H54.8 Legal blindness, as defined in USA; Z79.899 Other long term (current) drug therapy; Z88.5 Allergy status to narcotic agent

== ENCOUNTER → 2020-09-28 | Outpatient (CLI) | payer OTHER, BC ==
--- NOTE | 2020-09-30 04:16 | ECWPNPC ---
PATIENT NAME: SHARAD HARPER : 1975 GENDER: FEMALE VISIT DATE: 09/28/2020 DISCHARGE DATE: 09/28/20 1610 VISIT LOCKED DATE TIME: PHYSICIAN: WALDO IBARRA MD RESOURCE: WALDO IBARRA MD REASON FOR APPOINTMENT 1. DISCUSS DCS HISTORY OF PRESENT ILLNESS GENERAL: 44-YEAR-OLD FEMALE PATIENT WITH A HISTORY OF CHRONIC RIGHT SHOUDLER PAIN. THE PATIENT DESCRIBES THE PAIN ACHING AND SEVERE WITH A PAIN SCORE RANGING FROM 7-9/10 DEPNDING ON THE ACTIVITIES. THE PATIENT SUFFERED A WORK RELATED INJURY 08/27/2014 WHILE WORKING FOR THE DEPARTMENT OF [employer] WHEN SHE WAS LIFING HEAVY BOXES AND SHE FELT A POP IN THE SHOULDER. THE PATIENT HAS TRIED MEDICATION MANAGEMENT AND INTERVENTIONAL THERAPY AND STILL HAS PAIN. THE PATIENT HAS DIFFCULTY WITH ACITVITIES OF DAILY LIVING SUCH CLEANIGN HER HOUSE. SHE HAS A HARD TIME MOVING THE RIGHT SHOUDLER. THE PATIENT HAS TRIED 4 YEARS OF PHYSCIAL THERAPY FOR THE RIGHT SHOULDER. IN JUNE 2018, THEY STOPPED IT BECUASE IT WAS NOT HELPING HER. PATIENT DENIES UNEXPLAINABLE WEIGHT LOSS, FEVER, CHILLS, NEW CHANGES IN BOWEL CONTROL. FALL RISK SCREENING: SCREENING :NO FALLS REPORTED IN THE LAST YEAR PAIN SCREENING: PATIENT HAS A COMPLAINT OF ACUTE OR CHRONIC PAIN :YES LOCATION OF PAIN:RIGHT SHOULDER INTENSITY OF PAIN (SCALE OF 1 TO 10):8 WHAT DOES YOUR PAIN FEEL LIKE:ACHING, BURNING, CONTINOUS, SHARP, STABBING, TENDER, THROBBING, SORE, SHOOTING DURATION:CONTINOUS, CONSTANT, AWAKENS FROM SLEEP CAN'T LAY ON HER RIGHT SIDE DUE TO THE PAIN, RIGHT HAND SWELLS AND SOMETIMES SHE CAN'T MOVE HER FINGERS DUE TO THE SWELLING PAIN IS INCREASED BY:OTHERS EVERYTHING PAIN IS DECREASED BY: NOTHING PAIN CENTER INTAKE QUESTIONS: DO YOU HAVE A HISTORY OF MRSA? :YES RIGHT BREAST-YEARS AGO DO YOU TAKE A BLOOD THINNERS? :NO DO YOU HAVE ANY BLEEDING DISORDERS? :NO ANY NEW NUMBNESS OR WEAKNESS IN YOUR LEGS OR ARMS? :NO ANY PACEMAKER,DEFIBRILLATOR, OR DORSAL COLUMN STIMULATOR? :NO DO YOU HAVE ANY RASHES OR OPEN SORES? :NO ARE YOU ALLERGIC TO IV DYE? :NO ARE YOU DIABETIC? :NO ANY NEW PROBLEMS WITH YOUR MEDICATIONS? :NO HAVE YOU RECEIVED A VACCINE IN THE PAST 30 DAYS? :NO DO YOU PLAN TO RECEIVE A VACCINE IN THE NEXT 21 DAYS? :NO DO YOU NEED ANY PRESCRIPTION? :NO DO YOU TAKE ANY IMMUNOSUPPRESSIVE MEDICATIONS? :NO IS THERE A CHANCE YOU COULD BE ? :NO ARE YOU BREAST FEEDING? :NO CURRENT MEDICATIONS TAKING METOPROLOL-HYDROCHLOROTHIAZIDE 50-25 MG TABLET 1 TABLET WITH A MEAL ORALLY ONCE A DAY TAKING LEVOTHYROXINE SODIUM 175 MCG TABLET 1 TABLET ON AN EMPTY STOMACH IN THE MORNING ORALLY ONCE A DAY TAKING ACETAMINOPHEN 325 MG CAPSULE 1 CAPSULE NEEDED ORALLY EVERY 4 HRS TAKING SIMVASTATIN 40 MG TABLET 1 TAB ORALLY DAILY TAKING GABAPENTIN 100 MG CAPSULE 1 CAPSULE ORALLY FOR PAIN ONCE A DAY AT NIGHT, NOTES: TAKING DAILY TAKING IBUPROFEN 200 MG TABLET 3 TABS ORALLY NEEDED FOR MIGRAINE HEADACHES NOT-TAKING NORTRIPTYLINE HCL 25 MG CAPSULE 1 CAPSULE ORALLY ONCE A DAY, NOTES: DUE TO MAKING THOAT FEEL TIGHT NOT-TAKING PENNSAID 2 % SOLUTION 2 PUMPS TRANSDERMAL TWICE A DAY FOR PAIN NOT-TAKING DICLOFENAC SODIUM 1.5 % SOLUTION 40 DROPS TRANSDERMAL NEEDED FOR PAIN THREE TIMES DAILY NOT-TAKING PREGABALIN 25 MG CAPSULE 1 CAPSULE ORALLY FOR PAIN BID MDD2 NOT-TAKING OMEPRAZOLE 40 MG CAPSULE DELAYED RELEASE 1 CAPSULE ORALLY BID NOT-TAKING TOPIRAMATE ER _ CAPSULE EXTENDED RELEASE 24 HOUR 1 CAPSULE ORALLY ONCE A DAY NOT-TAKING VOLTAREN 1 % GEL 1 STRIP TRANSDERMAL AT RIGHT SHOULDER THREE TIMES DAILY NEEDED FOR PAIN NOT-TAKING CARAFATE 1 GM TABLET 1 TABLET ON AN EMPTY STOMACH ORALLY DAILY, NOTES: CURRENTLY OUT OF NOT-TAKING IBUPROFEN 800 MG TABLET 1 TABLET WITH FOOD OR MILK NEEDED ORALLY FOR PAIN EVERY 8 HOURS NEEDED MDD2 NOT-TAKING DICLOFENAC SODIUM 75 MG TABLET DELAYED RELEASE 1 TABLET WITH FOOD OR MILK ORALLY PRN FOR PAIN TWICE A DAY MDD2 NOT-TAKING CELECOXIB 200 MG CAPSULE 1 CAPSULE WITH FOOD ORALLY FOR PAIN ONCE A DAY NOT-TAKING IBU 600 MG TABLET 1 TABLET ORALLY DAILY/PRN MEDICATION LIST REVIEWED AND RECONCILED WITH THE PATIENT PAST MEDICAL HISTORY SHINGLES MIGRAINE HEADACHES OBESITY ESOPHAGEAL REFLUX HYPOTHYROIDISM OVARIAN CYSTS HYPERLIPIDEMIA ABDOMINAL PAIN ESOPHAGEAL REFLUX HEMATURIA UTI ATYPICAL CP NAUSEA VOMITING BLOOD CLOTS AND KNICKED AORTA WITH HEMORRHAGE WITH EOSINOPHILIC ESOPHAGITIS [id number] VIRUS LEGALLY BLIND RIGHT SHOULDER PAIN ALLERGIES OXYCONTIN: SHORTNESS OF BREATH - ALLERGY OXYCODONE HCL: ANAPHYLAXIS - ALLERGY NORTRIPTYLINE HCL: THROAT FELT LIKE IT WAS CLOSING - ALLERGY SURGICAL HISTORY ENDOMETRIOSIS -3X ADHESIONS , 12 POLYPS REMOVED ENDOSCOPY 1998 2011 COLONOSCOPY 2013 HYSTERECTOMY 2012 LEFT BUNIONECTOMY 1098 CHOLECYSTECTOMY 2013 ANAL FISSURE REPAIR OF NASAL FRACTURE 1986 PART OF RIGHT GREAT TOENAIL REMOVED 08/2020 FAMILY HISTORY FATHER: ALIVE 65 YRS, DIABETES, DIAGNOSED WITH HYPERTENSION, DIABETES MOTHER: 64 YRS, BREAST CANCER, HYPERTENSION, DIABETES, OTHER MALIGNANT NEOPLASM OF UNSPECIFIED SITE PATERNAL GRAND FATHER: PATERNAL GRAND MOTHER: 75 YRS, ALZHEIMER'S DEMENTIA MATERNAL GRAND FATHER: MATERNAL GRAND MOTHER: 72 YRS, HEART ATTACK 2 BROTHER(S) , 1 SISTER(S) - HEALTHY. 2 SON(S) , 1 DAUGHTER(S) - HEALTHY. SOCIAL HISTORY DRUG/ALCOHOL: AUDIT TOTAL SCORE: 2, INTERPRETATION: ALCOHOL EDUCATION. DRUG AND ALCOHOL TOTAL SCORE:: 0, INTERPRETATION:: NO PROBLEMS REPORTED. UNABLE TO VERIFY SOCIAL HISTORY DUE TO A KNOWN GLITCH IN THE SYSTEM. AD. HOSPITALIZATION/MAJOR DIAGNOSTIC PROCEDURE SURGERIES REVIEW OF SYSTEMS CONSTITUTIONAL: ANY RECENT FEVER NO . CHILLS NO . WEIGHT CHANGE OF UNKNOWN REASONS NO . GASTROENTEROLOGY: NEW UNEXPLAINABLE CHANGES IN BOWEL CONTROL NO . CONSTIPATION NO . GENITOURINARY: ANY NEW CHANGE IN BLADDER CONTROL? URINARY INCONTINENCE . NEUROLOGY: NEW ONSET DIZZINESS OR NEUROLOGICAL CHANGES NOT MENTIONED NO . NEW NUMBNESS OR PAIN PATTERNS NOT MENTIONED AND PERTINENT TO TODAY'S VISIT NO . CARDIOLOGY: NEW CHEST PRESSURE NO . NEW CHEST PAIN OCCASIONAL CHEST DISCOMFORT . RESPIRATORY: UNEXPLAINABLE COUGH NO . NEW SHORTNESS OF BREATH NO . VITAL SIGNS WT 252.4 LBS, HT 5'3'', BMI 44.71 INDEX, BP 146/66 MM HG, HR 103 /MIN, RR 18 /MIN, TEMP 96.4 F, OXYGEN SAT % 99%, SAFE IN ENV? (Y/N) Y, NA INITIALS PR 14:54, REVIEWED BY: Se ROWLEY RN. EXAMINATION GENERAL: THE PATIENT IS ALERT, ORIENTED TIMES THREE AND COOPERATIVE. LUNGS ARE CLEAR TO AUSCULTATION. HEART SHOWS REGULAR RHYTHM, NO MURMURS AND NO GALLOPS. SEVERE TENDERNESS AND HYPERPATHIA OVER THE RIGHT ARM AND SHOULDER. SHE CAN ABDUCT THE RIGHT ARM. SHE CANNOT MOVE THE RIGHT ARM. THE RIGHT ARM IS WEAKER THAN THE LEFT ARM ON EXTENSION. CERVICAL MRI DATED 09/20/2020 SHOWS SOME BUGING DISCS AT MULTIPLE LEVELS. ASSESSMENTS PAIN IN RIGHT SHOULDER - M25.511 (PRIMARY) TREATMENT PAIN IN RIGHT SHOULDER CLINICAL NOTES: I DISCUSSED ALTERNATIVES WITH MS. HARPER. THE PATIENT IS GOING TO DO THE THORACIC MRI NET MONTH. AFTER THE THORACIC MRI IS DONE, I WILL HAVE TO REVIEW THE CERVICAL, THORACIC AND LUMBAR MRI WITH THE RADIOLOGIST BEFORE GOING FORWARD WITH THE TRIAL. THE PATIENT HAS DONE THE PSYCHOLOGICAL EVALUATION. MY PLAN WILL BE TO REQUEST AUTHORIZATION FOR THE DORSAL COLUMN STIMULATOR TRIAL AFTER I HAVE REVIEWED ALL OF THE STUDIES. THE PATIENT IS VERY UNCOMFORTABLE AND WE HAVE TO FIND A WAY TO HELP HER. THE PATIENT REPORTS UNDERSTANDING AND AGREES WITH THE PLAN. I, GEOVANY MASSEY, DOCUMENTED THE ABOVE INFORMATION ACTING A SCRIBE FOR DR. IBARRA. I HAVE REVIEWED THE ABOVE DOCUMENT, WRITTEN BY GEOVANY MASSEY, MERCHANDISE PRESENTATION ASSOCIATE, AND I VERIFY THAT IT IS ACCURATE. . PROCEDURE CODES FA211 ESTABILISHED PATIENT [facility] CHARGE [id number] OFFICE/OUTPATIENT VISIT EST DISPOSITION & COMMUNICATION FOLLOW UP FOLLOW UP IN [address] Castro (REASON: DISCUSS DORSAL COLUMN STIMULATOR) ELECTRONICALLY SIGNED BY WALDO IBARRA MD, MD ON 09/29/2020 AT 10:35 AM EST DISCLAIMER : THIS IS A VISIT SUMMARY EXTRACTED FROM THE [email or web address] CHART. IT IS NOT A COPY OF THE [employer] PROGRESS NOTE. [email or web address]
== END ==
LOC: M PAIN 15:00
PROVIDERS: ATTEND Anesthesiology
DX: M25.511 Pain in right shoulder (principal); G89.29 Other chronic pain; G43.909 Migraine, unspecified, not intractable, without status migrainosus; E03.9 Hypothyroidism, unspecified; Z86.14 Personal history of Methicillin resistant Staphylococcus aureus infection; Z88.5 Allergy status to narcotic agent; Z88.8 Allergy status to other drugs, medicaments and biological substances; E66.01 Morbid (severe) obesity due to excess calories; Z68.41 Body mass index [BMI] 40.0-44.9, adult; Z79.899 Other long term (current) drug therapy

== ENCOUNTER → 2020-12-07 | Outpatient (CLI) | payer OTHER, BC ==
--- NOTE | 2020-12-10 01:03 | ECWPNPC ---
PATIENT NAME: SHARAD HARPER : 1975 GENDER: FEMALE VISIT DATE: 12/07/2020 DISCHARGE DATE: 12/07/20 1518 VISIT LOCKED DATE TIME: PHYSICIAN: WALDO IBARRA MD RESOURCE: WALDO IBARRA MD REASON FOR APPOINTMENT 1. DISCUSS DORSAL COLUMN STIMULATOR HISTORY OF PRESENT ILLNESS DEPRESSION SCREENING: PHQ-2 (2015 EDITION) LITTLE INTEREST OR PLEASURE IN DOING THINGS?NOT AT ALL FEELING DOWN, DEPRESSED, OR HOPELESS?NOT AT ALL TOTAL SCORE0 GENERAL: 45-YEAR-OLD FEMALE PATIENT WITH A HISTORY OF CHRONIC RIGHT SHOULDER PAIN. THE PATIENT SUFFERED A WORK RELATED INJURY WHILE WORKING FOR THE [employer] THE PATIENT DESCRIBES THE PAIN ACHING, BURNING, SHARP AND STABBING WITH A PAIN SCORE RANGING FROM 7-10/10. THE PAIN IS ASSOCIATED WITH ACTIVITIES. THE PATIENT HAS TRIED MEDICATION MANAGEMENT, INJECTION THERAPY AND A PHYSICAL THERAPY. THIS IS AFFECTING HER ABILITY TO USE HER ARM, SHE BASICALLY CANNOT USE IT. THIS IS AFFECTING HER ABILITY TO DO ACTIVITIES SUCH CLEANING HER HOUSE. SHE NEEDS ASSISTANCE FROM HER FAMILY. THE PATIENT HAS MANY ALLERGIES TO MULTIPLE MEDICATIONS. FALL RISK SCREENING: SCREENING : NO FALLS REPORTED IN THE LAST YEAR. PAIN SCREENING: PATIENT HAS A COMPLAINT OF ACUTE OR CHRONIC PAIN :YES LOCATION OF PAIN:RIGHT SHOULDER ENTIRE RIGHT ARM INTENSITY OF PAIN (SCALE OF 1 TO 10):8 AVERAGE 8-10 WHAT DOES YOUR PAIN FEEL LIKE:ACHING, BURNING, CONTINOUS, SHARP, STABBING, TENDER, THROBBING, SORE, SHOOTING DURATION:CONTINOUS, CONSTANT, AWAKENS FROM SLEEP UNABLE TO SLEEP ON RIGHT SIDE PAIN IS INCREASED BY:ACTIVITIES, PROLONGED STANDING PAIN IS DECREASED BY:OTHERS NOTHING PAIN HAS INTERFERED WITH THE FOLLOWING: EVERYTHING NURSING NOTE: -. PAIN CENTER INTAKE QUESTIONS: DO YOU HAVE A HISTORY OF MRSA? :YES MANY YEARS AGO RIGHT BREAST DO YOU TAKE A BLOOD THINNERS? :NO DO YOU HAVE ANY BLEEDING DISORDERS? :NO ANY NEW NUMBNESS OR WEAKNESS IN YOUR LEGS OR ARMS? :NO ANY PACEMAKER,DEFIBRILLATOR, OR DORSAL COLUMN STIMULATOR? :NO DO YOU HAVE ANY RASHES OR OPEN SORES? :NO ARE YOU ALLERGIC TO IV DYE? :NO ARE YOU DIABETIC? :NO ANY NEW PROBLEMS WITH YOUR MEDICATIONS? :NO HAVE YOU RECEIVED A VACCINE IN THE PAST 30 DAYS? :NO DO YOU PLAN TO RECEIVE A VACCINE IN THE NEXT 21 DAYS? :NO DO YOU TAKE ANY IMMUNOSUPPRESSIVE MEDICATIONS? :NO ANY HISTORY OF SEIZURES? :NO ANY HISTORY OF CARDIAC ISSUES OR EVENTS? :NO DO YOU HAVE ANY KIDNEY OR LIVER DISEASE? :NO DO YOU HAVE SLEEP APNEA? :NO ANY RECENT HEAD INJURY? :NO DO YOU HAVE ANY NEW INFECTIONS? :NO IS THERE A CHANCE YOU COULD BE ? :NO ARE YOU BREAST FEEDING? :NO WHEN DID YOU LAST EAT? : - WHEN DID YOU LAST DRINK? : - WHAT DID YOU LAST DRINK? : - NAME OF PERSON DRIVING YOU HOME? : - DO YOU HAVE ANY OTHER QUESTIONS OR CONCERNS? : - CURRENT MEDICATIONS TAKING METOPROLOL-HYDROCHLOROTHIAZIDE 50-25 MG TABLET 1 TABLET WITH A MEAL ORALLY ONCE A DAY TAKING LEVOTHYROXINE SODIUM 175 MCG TABLET 1 TABLET ON AN EMPTY STOMACH IN THE MORNING ORALLY ONCE A DAY TAKING ACETAMINOPHEN 325 MG CAPSULE 1 CAPSULE NEEDED ORALLY EVERY 4 HRS TAKING SIMVASTATIN 40 MG TABLET 1 TAB ORALLY DAILY TAKING IBUPROFEN 200 MG TABLET 3 TABS ORALLY NEEDED FOR MIGRAINE HEADACHES TAKING GABAPENTIN 100 MG CAPSULE 1 CAPSULE ORALLY FOR PAIN ONCE A DAY AT NIGHT, NOTES: TAKING DAILY NOT-TAKING NORTRIPTYLINE HCL 25 MG CAPSULE 1 CAPSULE ORALLY ONCE A DAY, NOTES: DUE TO MAKING THOAT FEEL TIGHT NOT-TAKING PENNSAID 2 % SOLUTION 2 PUMPS TRANSDERMAL TWICE A DAY FOR PAIN NOT-TAKING DICLOFENAC SODIUM 1.5 % SOLUTION 40 DROPS TRANSDERMAL NEEDED FOR PAIN THREE TIMES DAILY NOT-TAKING PREGABALIN 25 MG CAPSULE 1 CAPSULE ORALLY FOR PAIN BID MDD2 NOT-TAKING OMEPRAZOLE 40 MG CAPSULE DELAYED RELEASE 1 CAPSULE ORALLY BID NOT-TAKING TOPIRAMATE ER _ CAPSULE EXTENDED RELEASE 24 HOUR 1 CAPSULE ORALLY ONCE A DAY NOT-TAKING VOLTAREN 1 % GEL 1 STRIP TRANSDERMAL AT RIGHT SHOULDER THREE TIMES DAILY NEEDED FOR PAIN NOT-TAKING CARAFATE 1 GM TABLET 1 TABLET ON AN EMPTY STOMACH ORALLY DAILY, NOTES: CURRENTLY OUT OF NOT-TAKING IBUPROFEN 800 MG TABLET 1 TABLET WITH FOOD OR MILK NEEDED ORALLY FOR PAIN EVERY 8 HOURS NEEDED MDD2 NOT-TAKING DICLOFENAC SODIUM 75 MG TABLET DELAYED RELEASE 1 TABLET WITH FOOD OR MILK ORALLY PRN FOR PAIN TWICE A DAY MDD2 NOT-TAKING CELECOXIB 200 MG CAPSULE 1 CAPSULE WITH FOOD ORALLY FOR PAIN ONCE A DAY NOT-TAKING IBU 600 MG TABLET 1 TABLET ORALLY DAILY/PRN MEDICATION LIST REVIEWED AND RECONCILED WITH THE PATIENT PAST MEDICAL HISTORY SHINGLES MIGRAINE HEADACHES OBESITY ESOPHAGEAL REFLUX HYPOTHYROIDISM OVARIAN CYSTS HYPERLIPIDEMIA ABDOMINAL PAIN ESOPHAGEAL REFLUX HEMATURIA UTI ATYPICAL CP NAUSEA VOMITING BLOOD CLOTS AND KNICKED AORTA WITH HEMORRHAGE WITH EOSINOPHILIC ESOPHAGITIS [id number] VIRUS LEGALLY BLIND RIGHT SHOULDER PAIN NEURALGIA ALLERGIES OXYCONTIN: SHORTNESS OF BREATH - ALLERGY OXYCODONE HCL: ANAPHYLAXIS - ALLERGY NORTRIPTYLINE HCL: THROAT FELT LIKE IT WAS CLOSING - ALLERGY SURGICAL HISTORY ENDOMETRIOSIS -3X ADHESIONS , 12 POLYPS REMOVED ENDOSCOPY 1998 2011 COLONOSCOPY 2012 HYSTERECTOMY 2011 LEFT BUNIONECTOMY 1098 CHOLECYSTECTOMY 2013 ANAL FISSURE REPAIR OF NASAL FRACTURE 1986 PART OF RIGHT GREAT TOENAIL REMOVED 08/2020 FAMILY HISTORY FATHER: ALIVE 65 YRS, DIABETES, DIAGNOSED WITH HYPERTENSION, DIABETES MOTHER: 64 YRS, BREAST CANCER, HYPERTENSION, DIABETES, OTHER MALIGNANT NEOPLASM OF UNSPECIFIED SITE PATERNAL GRAND FATHER: PATERNAL GRAND MOTHER: 75 YRS, ALZHEIMER'S DEMENTIA MATERNAL GRAND FATHER: MATERNAL GRAND MOTHER: 72 YRS, HEART ATTACK 2 BROTHER(S) , 1 SISTER(S) - HEALTHY. 2 SON(S) , 1 DAUGHTER(S) - HEALTHY. SOCIAL HISTORY GENERAL: TOBACCO USE ARE YOU A:NONSMOKER LATEX QUESTIONNAIRE LATEX ALLERGY : HAVE YOU EVER DEVELOPED ANY TYPE OF REACTION AFTER HANDLING LATEX PRODUCTS SUCH RUBBER GLOVES, CONDOMS, DIAPHRAGMS, BALLOONS, SOCKS, OR UNDERWEAR?NO LATEX ALLERGY : HAVE YOU EVER DEVELOPED ANY TYPE OF REACTION DURING OR AFTER DENTAL APPOINTMENT, VAGINAL/RECTAL EXAMINATION, SURGICAL PROCEDURE, OR ANY OTHER EXPOSURE?NO LATEX RISK : HAVE YOU EVER HAD ANY DIFFICULTY BREATHING OR HIVES AFTER EATING OR HANDLING ANY FRUITS, OR VEGETABLES; SUCH KIWI, BANANAS, STONE FRUITS, OR CHESTNUTSNO LATEX RISK : DO YOU HAVE A PREVIOUS PERSONAL HISTORY OF MORE THAN NINE SURGERIES, SPINA BIFIDA, OR REPEATED CATHERIZATIONS? YES - PLEASE INDICATE : > 9 SURGERIES LATEX RISK : ARE YOU FREQUENTLY EXPOSED TO LATEX PRODUCTS IN YOUR OCCUPATION?NO DATE ASKED : 12/07/2020 ALCOHOL USE: NO. BMI CARE GOAL FOLLOW-UP ABOVE NORMAL BMI FOLLOW-UPDIETARY MANAGEMENT EDUCATION, GUIDANCE, AND COUNSELING ALCOHOL SCREENING POINTS: 0, INTERPRETATION: NEGATIVE. RECREATIONAL DRUG USE DENIES. CAFFEINE 1-2/DAY. SEXUAL HX HAD SEX IN THE LAST 12 MONTHS (VAGINAL, ORAL, OR ANAL)?: YES, WITH: MEN ONLY, USE PROTECTION?: NO, HAVE YOU EVER HAD AN STD?: NO. BUDDHIST [id number] ALEVISM LANGUAGE AFGHAN. LEARNING BARRIERS / SPECIAL NEEDS CHANGE FROM LAST VISIT?NO BARRIERS TO LEARNING?NO HEARING IMPAIRED?NO VISION IMPAIRED?YES : LEGALLY BLIND COGNITIVELY IMPAIRED?NO READINESS TO LEARN?YES LEARNING PREFERENCES?NO LEARNING CAPABILITIES PRESENT?YES EMOTIONAL BARRIERS?NO SPECIAL DEVICES?NO ASSET PROTECTION ASSISTANT NEEDED?NO DOMESTIC VIOLENCE NONE. OCCUPATION: [employer] - DISABLED. DIET: REGULAR. EXERCISE: NO REGULAR EXERCISE. MARITAL STATUS: SINGLE, .. OTHERS AT HOME: OTHER NON-RELATIVE, CHILDREN. - HAS THE PATIENT BEEN EDUCATED REGARDING HIS/HER PLAN OF CARE?YES HAS THE PATIENT BEEN EDUCATED REGARDING PAIN, THE RISK FOR PAIN, THE IMPORTANCE OF EFFECTIVE PAIN MANAGEMENT, AND THE PAIN ASSESSMENT PROCESS?YES ADVANCE DIRECTIVE ADVANCE DIRECTIVE DISCUSSED WITH PATIENT:YES PT DOES NOT HAVE ANY ADVANCED DIRECTIVES AND DECLINES ANY INFORMATION ON HCP AT THIS TIME. UNABLE TO VERIFY SOCIAL HISTORY DUE TO A KNOWN GLITCH IN THE SYSTEM. AD. HOSPITALIZATION/MAJOR DIAGNOSTIC PROCEDURE SURGERIES REVIEW OF SYSTEMS CONSTITUTIONAL: ANY RECENT FEVER NO . CHILLS NO . WEIGHT CHANGE OF UNKNOWN REASONS NO . GASTROENTEROLOGY: NEW UNEXPLAINABLE CHANGES IN BOWEL CONTROL NO . CONSTIPATION NO . GENITOURINARY: ANY NEW CHANGE IN BLADDER CONTROL? URINARY INCONTINENCE . NEUROLOGY: NEW ONSET DIZZINESS OR NEUROLOGICAL CHANGES NOT MENTIONED NO . NEW NUMBNESS OR PAIN PATTERNS NOT MENTIONED AND PERTINENT TO TODAY'S VISIT NO . CARDIOLOGY: NEW CHEST PRESSURE NO . PATIENT DENIES NO . RESPIRATORY: UNEXPLAINABLE COUGH NO . NEW SHORTNESS OF BREATH NO . VITAL SIGNS WT 254.8 LBS, HT 5'3'', BMI 45.13 INDEX, BP 138/84 MM HG, HR 90 /MIN, RR 18 /MIN, TEMP 98.2 F, OXYGEN SAT % 97%, SAFE IN ENV? (Y/N) Y, NA INITIALS CA 14:08, REVIEWED BY: Se ROWLEY RN. EXAMINATION GENERAL EXAMINATION: THE PATIENT IS ALERT, ORIENTED TIMES THREE AND COOPERATIVE. LUNGS ARE CLEAR TO AUSCULTATION. HEART SHOWS REGULAR RHYTHM, NO MURMURS AND NO GALLOPS. THE PATIENT CAN ABDUCT THE LEFT ARM UP TO THE SHOULDER LEVEL. THE PATIENT CANNOT ABDUCT THE RIGHT ARM. SHE CAN BARELY FLEX HER RIGHT ARM. USING A GONIOMETER, SHE CAN FLEX 4 DEGREES ON THE RIGHT SHOULDER. THE PATIENT HAS DIFFICULTY FLEXING THE RIGHT ELBOW. THE RIGHT HAND IS A LITTLE SWOLLEN COMPARED TO THE LEFT. IT IS SORE WHEN I TOUCH THE ARM AND ALSO THE FOREARM. THERE IS HYPERPATHIA OVER THE RIGHT SHOULDER. MRI OF THE THORACIC DATED 11/02/2020 WHICH SHOWS A SMALL SYRINX WITHOUT CORD EDEMA. LUMBAR SPINE MRI SHOWS DISC PROTRUSION AT MULTIPLE LEVELS. CERVICAL MRI SHOWS MINIMAL DISC PROTRUSION. PSYCHOLOGICAL EVALUATION DATED 09/22/2019 SHOWS THAT THERE IS NO PSYCHOLOGICAL CONDITIONS THAT WOULD INTERFERE WITH THE TRIAL. 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 HARPER. WE DISCUSSED THE DORSAL COLUMN STIMULATOR TRIAL. THE PATIENT IS AWARE THAT SHE WILL HAVE TO STAY IN THE HOSPITAL OVER NIGHT. I TOLD HER TO SET HER EXCEPTIONS HIGH AND NOT TO MOVE FORWARD WITH THE IMPLANT UNLESS SHE RECEIVES MORE THAN 80% PAIN RELIEF. I WOULD LIKE TO DISCUSS THE MRI WITH THE RADIOLOGIST AND DISCUSS THE FILMS. I HAD A DISCUSSION ABOUT THE DORSAL COLUMN STIMULATOR WITH THE PATIENT. THE PATIENT REPORTS UNDERSTANDING AND AGREES WITH THE PLAN. I, GEOVANY MASSEY, DOCUMENTED THE ABOVE INFORMATION ACTING A SCRIBE FOR DR. IBARRA. I HAVE REVIEWED THE ABOVE DOCUMENT, WRITTEN BY GEOVANY MASSEY, SHOT BLAST EQUIPMENT OPERATOR, AND I VERIFY THAT IT IS ACCURATE. PROCEDURES PN WORKMANS' COMP OPINION IN YOUR OPINION, WAS THE INCIDENT THAT THE PATIENT DESCRIBED THE COMPETENT MEDICAL CAUSE OF THIS INJURY/ILLNESS? YES ARE THE PATIENT'S COMPLAINTS CONSISTENT WITH HIS/HER HISTORY OF THE INJURY/ILLNESS? YES IS THE PATIENT'S HISTORY OF THE INJURY/ILLNESS CONSISTENT WITH YOUR OBJECTIVE FINDING? YES WHAT IS THE PERCENTAGE OF TEMPORARY IMPAIRMENT? TOTAL = 100% . IS THE PATIENT WORKING? NO . DOCTOR ON SITE: WALDO CHÁVEZ MD PROCEDURE CODES FA211 ESTABILISHED PATIENT [facility] FACILITY CHARGE 38501 OFFICE/OUTPATIENT VISIT EST DISPOSITION & COMMUNICATION FOLLOW UP FOLLOW UP WITH DR. IBARRA IN 11 WEEKS-DISCUSS DCS (REASON: REQUEST AUTH FOR DCS TRIAL. POSSIBLY FOR TRIAL) ELECTRONICALLY SIGNED BY WALDO IBARRA MD, MD ON 12/09/2020 AT 03:03 PM EDT DISCLAIMER : THIS IS A VISIT SUMMARY EXTRACTED FROM THE [employer] CHART. IT IS NOT A COPY OF THE [employer] PROGRESS NOTE. MTDD
== END ==
LOC: M PAIN 14:00
PROVIDERS: ATTEND Anesthesiology
DX: M25.511 Pain in right shoulder (principal); G89.29 Other chronic pain; M79.2 Neuralgia and neuritis, unspecified; Z91.89 Other specified personal risk factors, not elsewhere classified; K20.0 Eosinophilic esophagitis; Z86.14 Personal history of Methicillin resistant Staphylococcus aureus infection; G43.909 Migraine, unspecified, not intractable, without status migrainosus; E03.9 Hypothyroidism, unspecified; Z88.5 Allergy status to narcotic agent; Z88.8 Allergy status to other drugs, medicaments and biological substances; E66.01 Morbid (severe) obesity due to excess calories; Z68.42 Body mass index [BMI] 45.0-49.9, adult; Z79.899 Other long term (current) drug therapy

== ENCOUNTER → 2021-02-22 | Outpatient (CLI) | payer OTHER, BC ==
--- NOTE | 2021-02-24 03:45 | ECWPNPC ---
PATIENT NAME: SHARAD HARPER : 1975 GENDER: FEMALE VISIT DATE: 02/22/2021 DISCHARGE DATE: 02/22/21 1319 VISIT LOCKED DATE TIME: PHYSICIAN: WALDO IBARRA MD RESOURCE: WALDO IBARRA MD REASON FOR APPOINTMENT 1. FOLLOW UP WITH DR. IBARRA IN 11 WEEKS-DISCUSS DCS HISTORY OF PRESENT ILLNESS PAIN CENTER INTAKE QUESTIONS: DO YOU HAVE A HISTORY OF MRSA? :NO DO YOU TAKE A BLOOD THINNERS? :NO DO YOU HAVE ANY BLEEDING DISORDERS? :NO ANY NEW NUMBNESS OR WEAKNESS IN YOUR LEGS OR ARMS? :NO ANY PACEMAKER,DEFIBRILLATOR, OR DORSAL COLUMN STIMULATOR? :NO DO YOU HAVE ANY RASHES OR OPEN SORES? :NO ARE YOU ALLERGIC TO IV DYE? :NO ARE YOU DIABETIC? :NO ANY NEW PROBLEMS WITH YOUR MEDICATIONS? :NO HAVE YOU RECEIVED A VACCINE IN THE PAST 30 DAYS? :NO DO YOU PLAN TO RECEIVE A VACCINE IN THE NEXT 21 DAYS? :NO DO YOU NEED ANY PRESCRIPTION? :NO DO YOU TAKE ANY IMMUNOSUPPRESSIVE MEDICATIONS? :NO DO YOU HAVE ANY KIDNEY OR LIVER DISEASE? :NO IS THERE A CHANCE YOU COULD BE ? :NO ARE YOU BREAST FEEDING? :NO 45-YEAR-OLD FEMALE PATIENT WITH A HISTORY OF CHRONIC RIGHT SHOULDER PAIN. THE PATIENT DESCRIBES THE PAIN SHARP, SHOOTING AND TENDER WITH A PAIN SCORE RANGING FROM 8-10/10. 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 SHE SUFFERED A WORK RELATED INJURY THAT OCCURRED IN 2013. THE PATIENT HAS TRIED MEDICATION MANAGEMENT AND INJECTION THERAPY BUT THE PAIN PERSISTS. WE HAVE BEEN WORKING HER CASE FOR THE POSSIBILITY OF A SPINAL COLUMN STIMULATOR TRIAL. GENERAL: -. FALL RISK SCREENING: SCREENING : NO FALLS REPORTED IN THE LAST YEAR. PAIN SCREENING: PATIENT HAS A COMPLAINT OF ACUTE OR CHRONIC PAIN :YES LOCATION OF PAIN:RIGHT SHOULDER, HAND(S), CHEST INTENSITY OF PAIN (SCALE OF 1 TO 10):8 WHAT DOES YOUR PAIN FEEL LIKE:CONTINOUS, BURNING, SHARP NURSING NOTE: -. CURRENT MEDICATIONS TAKING METOPROLOL-HYDROCHLOROTHIAZIDE 50-25 MG TABLET 1 TABLET WITH A MEAL ORALLY ONCE A DAY TAKING LEVOTHYROXINE SODIUM 175 MCG TABLET 1 TABLET ON AN EMPTY STOMACH IN THE MORNING ORALLY ONCE A DAY TAKING ACETAMINOPHEN 325 MG CAPSULE 1 CAPSULE NEEDED ORALLY EVERY 4 HRS TAKING SIMVASTATIN 40 MG TABLET 1 TAB ORALLY DAILY TAKING IBUPROFEN 200 MG TABLET 3 TABS ORALLY NEEDED FOR MIGRAINE HEADACHES TAKING GABAPENTIN 100 MG CAPSULE 1 CAPSULE ORALLY FOR PAIN ONCE A DAY AT NIGHT, NOTES: TAKING DAILY NOT-TAKING NORTRIPTYLINE HCL 25 MG CAPSULE 1 CAPSULE ORALLY ONCE A DAY, NOTES: DUE TO MAKING THOAT FEEL TIGHT NOT-TAKING PENNSAID 2 % SOLUTION 2 PUMPS TRANSDERMAL TWICE A DAY FOR PAIN NOT-TAKING DICLOFENAC SODIUM 1.5 % SOLUTION 40 DROPS TRANSDERMAL NEEDED FOR PAIN THREE TIMES DAILY NOT-TAKING PREGABALIN 25 MG CAPSULE 1 CAPSULE ORALLY FOR PAIN BID MDD2 NOT-TAKING OMEPRAZOLE 40 MG CAPSULE DELAYED RELEASE 1 CAPSULE ORALLY BID NOT-TAKING TOPIRAMATE ER _ CAPSULE EXTENDED RELEASE 24 HOUR 1 CAPSULE ORALLY ONCE A DAY NOT-TAKING VOLTAREN 1 % GEL 1 STRIP TRANSDERMAL AT RIGHT SHOULDER THREE TIMES DAILY NEEDED FOR PAIN NOT-TAKING CARAFATE 1 GM TABLET 1 TABLET ON AN EMPTY STOMACH ORALLY DAILY, NOTES: CURRENTLY OUT OF NOT-TAKING IBUPROFEN 800 MG TABLET 1 TABLET WITH FOOD OR MILK NEEDED ORALLY FOR PAIN EVERY 8 HOURS NEEDED MDD2 NOT-TAKING DICLOFENAC SODIUM 75 MG TABLET DELAYED RELEASE 1 TABLET WITH FOOD OR MILK ORALLY PRN FOR PAIN TWICE A DAY MDD2 NOT-TAKING CELECOXIB 200 MG CAPSULE 1 CAPSULE WITH FOOD ORALLY FOR PAIN ONCE A DAY NOT-TAKING IBU 600 MG TABLET 1 TABLET ORALLY DAILY/PRN PAST MEDICAL HISTORY SHINGLES MIGRAINE HEADACHES OBESITY ESOPHAGEAL REFLUX HYPOTHYROIDISM OVARIAN CYSTS HYPERLIPIDEMIA ABDOMINAL PAIN ESOPHAGEAL REFLUX HEMATURIA UTI ATYPICAL CP NAUSEA VOMITING BLOOD CLOTS AND KNICKED AORTA WITH HEMORRHAGE WITH EOSINOPHILIC ESOPHAGITIS [id number] VIRUS LEGALLY BLIND RIGHT SHOULDER PAIN NEURALGIA ALLERGIES OXYCONTIN: SHORTNESS OF BREATH - ALLERGY OXYCODONE HCL: ANAPHYLAXIS - ALLERGY NORTRIPTYLINE HCL: THROAT FELT LIKE IT WAS CLOSING - ALLERGY REVIEW OF SYSTEMS CONSTITUTIONAL: ANY RECENT FEVER NO . CHILLS NO . WEIGHT CHANGE OF UNKNOWN REASONS NO . GASTROENTEROLOGY: NEW UNEXPLAINABLE CHANGES IN BOWEL CONTROL NO . CONSTIPATION NO . GENITOURINARY: ANY NEW CHANGE IN BLADDER CONTROL? NO . NEUROLOGY: NEW ONSET DIZZINESS OR NEUROLOGICAL CHANGES NOT MENTIONED NO . NEW NUMBNESS OR PAIN PATTERNS NOT MENTIONED AND PERTINENT TO TODAY'S VISIT NO . CARDIOLOGY: NEW CHEST PRESSURE NO . PATIENT DENIES NO . RESPIRATORY: UNEXPLAINABLE COUGH NO . NEW SHORTNESS OF BREATH NO . VITAL SIGNS WT 254.0 LBS, HT 5'3'', BMI 44.99 INDEX, BP 139/70 MM HG, HR 99 /MIN, RR 18 /MIN, TEMP 98.1 F, OXYGEN SAT % 96%, NA INITIALS AW 1248. EXAMINATION GENERAL: THE PATIENT IS ALERT, ORIENTED TIMES THREE AND COOPERATIVE. LUNGS ARE CLEAR TO AUSCULTATION. HEART SHOWS REGULAR RHYTHM, NO MURMURS AND NO GALLOPS. SEVERE TENDERNESS OVER THE RIGHT SHOULDER WHICH SHE CAN BARELY MOVE. SHE CAN ABDUCT THE LEFT ARM BUT SHE CANNOT ABDUCT THE RIGHT ARM. HYPERPATHIA OVER THE RIGHT SHOULDER. MRI OF THE THORACIC SPINE 11/02/2020 IS SHOWING A SYRINX FROM T7 TO T10-T11. THERE IS NO CORD EDEMA. LUMBAR MRI SHOWS DISC PROTRUSION. CERVICAL MRI SHOWS DISC PROTRUSION. I DISCUSSED THE MRIS WITH DR. FERRERA ON 12/10/2020 AND THERE IS ENOUGH SPACE IN THE EPIDURAL SPACE TO PASS THE LEADS. PSYCHOLOGICAL EVALUATION DATED 09/22/2019 SHOWS THAT WE CAN GO AHEAD WITH THE TRIAL. 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 HARPER. WE AGREE ON MOVING FORWARD WITH THE TRIAL. I AM LOOKING FOR MORE THAN 80% OF PAIN CONTROL. I ALREADY DISCUSSED THE MRI WITH THE RADIOLOGIST 12/10/2020. THE PATIENT HAD AN OPERATION IN APRIL 2018. I WILL SEE WHO DID THE CLEARANCE FOR THAT OPERATION. THE PATIENT REPORTS UNDERSTANDING AND AGREES WITH THE PLAN. I, GEOVANY MASSEY, DOCUMENTED THE ABOVE INFORMATION ACTING A SCRIBE FOR DR. IBARRA. I HAVE REVIEWED THE ABOVE DOCUMENT, WRITTEN BY GEOVANY MASSEY, DIRECTOR OF CURRICULUM AND INSTRUCTION, AND I VERIFY THAT IT IS ACCURATE. . PROCEDURES PN WORKMANS' COMP OPINION IN YOUR OPINION, WAS THE INCIDENT THAT THE PATIENT DESCRIBED THE COMPETENT MEDICAL CAUSE OF THIS INJURY/ILLNESS? YES ARE THE PATIENT'S COMPLAINTS CONSISTENT WITH HIS/HER HISTORY OF THE INJURY/ILLNESS? YES IS THE PATIENT'S HISTORY OF THE INJURY/ILLNESS CONSISTENT WITH YOUR OBJECTIVE FINDING? YES WHAT IS THE PERCENTAGE OF TEMPORARY IMPAIRMENT? TOTAL = 100% IS THE PATIENT WORKING? NO DOCTOR ON SITE: WALDO CHÁVEZ MD PROCEDURE CODES FA211 ESTABILISHED PATIENT [facility]AC[facility] CHARGE [address] OFFICE/OUTPATIENT VISIT EST DISPOSITION & COMMUNICATION FOLLOW UP FOLLOW UP FIRST OF SECOND WEEK OF MARCH (REASON: PRESEDATE FOR DCS TRIAL.) ELECTRONICALLY SIGNED BY WALDO IBARRA MD, MD ON 02/23/2021 AT 04:15 PM EDT DISCLAIMER : THIS IS A VISIT SUMMARY EXTRACTED FROM THE [employer] CHART. IT IS NOT A COPY OF THE [employer] PROGRESS NOTE. MTDD
== END ==
LOC: M PAIN 12:40
PROVIDERS: ATTEND Anesthesiology
DX: M25.511 Pain in right shoulder (principal); G89.29 Other chronic pain; M79.2 Neuralgia and neuritis, unspecified; Z91.89 Other specified personal risk factors, not elsewhere classified; K21.9 Gastro-esophageal reflux disease without esophagitis; K20.0 Eosinophilic esophagitis; G43.909 Migraine, unspecified, not intractable, without status migrainosus; E03.9 Hypothyroidism, unspecified; Z88.5 Allergy status to narcotic agent; Z88.8 Allergy status to other drugs, medicaments and biological substances; E66.01 Morbid (severe) obesity due to excess calories; Z68.41 Body mass index [BMI] 40.0-44.9, adult; Z79.899 Other long term (current) drug therapy

== ENCOUNTER 2021-03-11 07:59 | Emergency (ER) | payer BC, OTHER ==
[~2021-03-11] VITALS: Ht 160 cm; Wt 114.4 kg
[~2021-03-11 07:59] MED LIST changes: +OMEP40CA4 PO; -OMEP40CA97 PO
[2021-03-11] MEDS ORDERED: SIMV40TA20 (08:09)
[2021-03-11] MEDS ORDERED: GABA-1171 (08:09)
[2021-03-11] MEDS ORDERED: SYNT175T2 PO (08:09)
[2021-03-11] MEDS ORDERED: KETOROLAC 30 MG/ML 1ML VIAL IV ONE (09:10)
--- NOTE | 2021-03-11 09:54 | REP ---
INDICATION: swelling pain/ hx DVT COMPARISON: None. TECHNIQUE: Real time compression and duplex Doppler evaluation of the Left upper extremity deep venous system is performed. FINDINGS: The Left subclavian, jugular, axillary, brachial, basilic and cephalic veins are fully compressible where accessible with transducer pressure, and demonstrate no intraluminal thrombus and normal venous waveforms. There is no evidence of deep venous thrombosis.The Right subclavian vein is fully compressible where accessible with transducer pressure, and demonstrates no intraluminal thrombus and normal venous waveforms. IMPRESSION: No evidence of deep venous thrombosis of the Left upper extremity deep vein system. <Electronically signed by Raad Ramso > 03/11/21 0484
[2021-03-11 10:40] LABS: BASO % 0.5 % (0.0-1.0); EOS # 0.2 10^3/uL (0.0-0.5); EOS % 2.8 % (0.0-3.0); HEMATOCRIT 41.1 % (36.0-47.0); HEMOGLOBIN 13.3 g/dl (12.0-15.5); LYMPH # 1.9 10^3/uL (1.5-5.0); LYMPH % 32.2 % (24.0-44.0); MEAN CORPUSCULAR HEMOGLOBIN 28.5 pg (27.0-33.0); MEAN CORPUSCULAR HGB CONC 32.4 g/dl (32.0-36.5); MONO # 0.6 10^3/uL (0.0-0.8); MONO % 9.7 % (2.0-8.0); NEUTROPHILS # 3.2 10^3/uL (1.5-8.5); NEUTROPHILS % 54.3 % (36.0-66.0); PLATELET COUNT, AUTOMATED 203 10^3/uL (150-450); RED BLOOD COUNT 4.67 10^6/uL (4.00-5.40)
[2021-03-11] MEDS ORDERED: methocarbamoL 500 MG TAB PO ONE (11:40)
[2021-03-11] MEDS ORDERED: LIDOCAINE 5% (LIDODERM) PATCH TD ONE (11:40)
[2021-03-11 12:53] VITALS: BP 137/76
[2021-03-11] MEDS ORDERED: EPIP0.3I2 IM (13:06)
[2021-03-12] MEDS ORDERED: **NOTE PATIENT COMMENT** MISC XX ONE
--- NOTE | 2021-03-12 06:48 | ECGEPIP ---
[facility] - ED Test Date: 2021-03-11 Pat Name: SHARAD HARPER Department: Room: - Gender: Female [employer] Work[employer]: : 1975 Requested By: MEGAN Ortez PA-C Order Number: [id number] Reading MD: Bob Badillo Measurements Intervals [place] Rate: 83 P: 48 CA: 146 QRS: -19 QRSD: 80 T: 53 QT: 368 QTc: 432 Interpretive Statements Normal sinus rhythm Comparison tracing not on file Electronically Signed on 03-12-2021 6:47:43 EDT by Bob Badillo
== END 2021-03-11 13:15 | disposition home or self-care (01) ==
LOC: M ED 07:59
DX: M54.2 Cervicalgia (principal); E03.9 Hypothyroidism, unspecified; K21.9 Gastro-esophageal reflux disease without esophagitis; I10 Essential (primary) hypertension
CPT/HCPCS: 84484; 85025; 93005; 93971; 96374; 99284; J1885

== ENCOUNTER → 2021-03-30 | Outpatient (CLI) | payer OTHER, BC ==
[~2021-03-30] MED LIST changes: +EPIP0.3I2 IM; +GABA-1171; +SIMV40TA20; +SYNT175T2 PO
--- NOTE | 2021-04-02 03:19 | ECWPNPC ---
PATIENT NAME: SHARAD HARPER : 1975 GENDER: FEMALE VISIT DATE: 03/30/2021 DISCHARGE DATE: 03/30/21 1436 VISIT LOCKED DATE TIME: PHYSICIAN: WALDO IBARRA MD RESOURCE: WALDO IBARRA MD REASON FOR APPOINTMENT 1. PRESEDATE FOR DCS TRIAL. HISTORY OF PRESENT ILLNESS GENERAL: 45-YEAR-OLD FEMALE PATIENT WITH A HISTORY OF CHRONIC RIGHT SHOULDER PAIN. SHE SUFFERED A WORK RELATED INJURY THAT OCCURRED IN 2013 WHEN SHE WAS WORKING FOR THE [employer]. THE PATIENT DESCRIBES THE PAIN CONSTANT, SEVERE WITH A PAIN SCORE RANGING FROM 8-10/10. SHE BASICALLY CANNOT USE HER RIGHT ARM. WE DISCUSSED THE POSSIBLY OF DOING A SPINAL COLUMN STIMULATOR TRIAL. FALL RISK SCREENING: SCREENING : NO FALLS REPORTED IN THE LAST YEAR. PAIN SCREENING: PATIENT HAS A COMPLAINT OF ACUTE OR CHRONIC PAIN :YES LOCATION OF PAIN:RIGHT SHOULDER, OTHER: RIGHT ARM, RIGHT HAND, RIGHT FINGERS INTENSITY OF PAIN (SCALE OF 1 TO 10):8 WHAT DOES YOUR PAIN FEEL LIKE:ACHING, BURNING, CONTINOUS, THROBBING DURATION:CONTINOUS, CONSTANT, STEADY, ALL DAY PAIN IS INCREASED BY:ACTIVITIES, OTHERS LAYING ON RIGHT SIDE PAIN IS DECREASED BY: NOTHING NURSING NOTE: -. PAIN CENTER INTAKE QUESTIONS: DO YOU HAVE A HISTORY OF MRSA? 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 :NO DO YOU HAVE ANY BLEEDING DISORDERS? :NO ANY NEW NUMBNESS OR WEAKNESS IN YOUR LEGS OR ARMS? :NO ANY PACEMAKER,DEFIBRILLATOR, OR DORSAL COLUMN STIMULATOR? :NO DO YOU HAVE ANY RASHES OR OPEN SORES? :NO ARE YOU ALLERGIC TO IV DYE? :NO ARE YOU DIABETIC? :NO ANY NEW PROBLEMS WITH YOUR MEDICATIONS? :NO HAVE YOU RECEIVED A VACCINE IN THE PAST 30 DAYS? :NO DO YOU PLAN TO RECEIVE A VACCINE IN THE NEXT 21 DAYS? :NO DO YOU NEED ANY PRESCRIPTION? :NO DO YOU TAKE ANY IMMUNOSUPPRESSIVE MEDICATIONS? :NO DO YOU HAVE ANY KIDNEY OR LIVER DISEASE? :NO IS THERE A CHANCE YOU COULD BE ? :NO ARE YOU BREAST FEEDING? :NO CURRENT MEDICATIONS TAKING METOPROLOL-HYDROCHLOROTHIAZIDE 50-25 MG TABLET 1 TABLET WITH A MEAL ORALLY ONCE A DAY TAKING LEVOTHYROXINE SODIUM 175 MCG TABLET 1 TABLET ON AN EMPTY STOMACH IN THE MORNING ORALLY ONCE A DAY TAKING ACETAMINOPHEN 325 MG CAPSULE 1 CAPSULE NEEDED ORALLY EVERY 4 HRS TAKING SIMVASTATIN 40 MG TABLET 1 TAB ORALLY DAILY TAKING IBUPROFEN 200 MG TABLET 3 TABS ORALLY NEEDED FOR MIGRAINE HEADACHES TAKING GABAPENTIN 100 MG CAPSULE 1 CAPSULE ORALLY FOR PAIN ONCE A DAY AT NIGHT TAKING GRACE NATURAL PAIN RELIEVING 3-3 % GEL DIRECTED EXTERNALLY TAKING ICY HOT 7.5 % (ROLL) MISCELLANEOUS 1 APPLICATION NEEDED EXTERNALLY THREE TIMES A DAY NOT-TAKING NORTRIPTYLINE HCL 25 MG CAPSULE 1 CAPSULE ORALLY ONCE A DAY, NOTES: DUE TO MAKING THOAT FEEL TIGHT NOT-TAKING PENNSAID 2 % SOLUTION 2 PUMPS TRANSDERMAL TWICE A DAY FOR PAIN NOT-TAKING DICLOFENAC SODIUM 1.5 % SOLUTION 40 DROPS TRANSDERMAL NEEDED FOR PAIN THREE TIMES DAILY NOT-TAKING PREGABALIN 25 MG CAPSULE 1 CAPSULE ORALLY FOR PAIN BID MDD2 NOT-TAKING OMEPRAZOLE 40 MG CAPSULE DELAYED RELEASE 1 CAPSULE ORALLY BID NOT-TAKING TOPIRAMATE ER _ CAPSULE EXTENDED RELEASE 24 HOUR 1 CAPSULE ORALLY ONCE A DAY NOT-TAKING VOLTAREN 1 % GEL 1 STRIP TRANSDERMAL AT RIGHT SHOULDER THREE TIMES DAILY NEEDED FOR PAIN NOT-TAKING CARAFATE 1 GM TABLET 1 TABLET ON AN EMPTY STOMACH ORALLY DAILY, NOTES: CURRENTLY OUT OF NOT-TAKING IBUPROFEN 800 MG TABLET 1 TABLET WITH FOOD OR MILK NEEDED ORALLY FOR PAIN EVERY 8 HOURS NEEDED MDD2 NOT-TAKING DICLOFENAC SODIUM 75 MG TABLET DELAYED RELEASE 1 TABLET WITH FOOD OR MILK ORALLY PRN FOR PAIN TWICE A DAY MDD2 NOT-TAKING CELECOXIB 200 MG CAPSULE 1 CAPSULE WITH FOOD ORALLY FOR PAIN ONCE A DAY NOT-TAKING IBU 600 MG TABLET 1 TABLET ORALLY DAILY/PRN MEDICATION LIST REVIEWED AND RECONCILED WITH THE PATIENT PAST MEDICAL HISTORY SHINGLES MIGRAINE HEADACHES OBESITY ESOPHAGEAL REFLUX HYPOTHYROIDISM OVARIAN CYSTS HYPERLIPIDEMIA ABDOMINAL PAIN ESOPHAGEAL REFLUX HEMATURIA UTI ATYPICAL CP NAUSEA VOMITING BLOOD CLOTS AND KNICKED AORTA WITH HEMORRHAGE WITH EOSINOPHILIC ESOPHAGITIS [id number] VIRUS LEGALLY BLIND RIGHT SHOULDER PAIN NEURALGIA LEFT SHOULDER PAIN ALLERGIES OXYCONTIN: SHORTNESS OF BREATH - ALLERGY OXYCODONE HCL: ANAPHYLAXIS - ALLERGY NORTRIPTYLINE HCL: THROAT FELT LIKE IT WAS CLOSING - ALLERGY SOCIAL HISTORY GENERAL: TOBACCO USE ARE YOU A:NONSMOKER LATEX QUESTIONNAIRE LATEX ALLERGY : HAVE YOU EVER DEVELOPED ANY TYPE OF REACTION AFTER HANDLING LATEX PRODUCTS SUCH RUBBER GLOVES, CONDOMS, DIAPHRAGMS, BALLOONS, SOCKS, OR UNDERWEAR?NO LATEX ALLERGY : HAVE YOU EVER DEVELOPED ANY TYPE OF REACTION DURING OR AFTER DENTAL APPOINTMENT, VAGINAL/RECTAL EXAMINATION, SURGICAL PROCEDURE, OR ANY OTHER EXPOSURE?NO LATEX RISK : HAVE YOU EVER HAD ANY DIFFICULTY BREATHING OR HIVES AFTER EATING OR HANDLING ANY FRUITS, OR VEGETABLES; SUCH KIWI, BANANAS, STONE FRUITS, OR CHESTNUTSNO LATEX RISK : DO YOU HAVE A PREVIOUS PERSONAL HISTORY OF MORE THAN NINE SURGERIES, SPINA BIFIDA, OR REPEATED CATHERIZATIONS? YES - PLEASE INDICATE : > 9 SURGERIES LATEX RISK : ARE YOU FREQUENTLY EXPOSED TO LATEX PRODUCTS IN YOUR OCCUPATION?NO DATE ASKED : 03/30/2021 ALCOHOL USE: NO. BMI CARE GOAL FOLLOW-UP ABOVE NORMAL BMI FOLLOW-UPDIETARY MANAGEMENT EDUCATION, GUIDANCE, AND COUNSELING ALCOHOL SCREENING POINTS: 0, INTERPRETATION: NEGATIVE. RECREATIONAL DRUG USE DENIES. CAFFEINE 1-2/DAY. SEXUAL HX HAD SEX IN THE LAST 12 MONTHS (VAGINAL, ORAL, OR ANAL)?: YES, WITH: MEN ONLY, USE PROTECTION?: NO, HAVE YOU EVER HAD AN STD?: NO. JAIN [id number] EPISCOPALIAN LANGUAGE [place]. LEARNING BARRIERS / SPECIAL NEEDS CHANGE FROM LAST VISIT?NO BARRIERS TO LEARNING?NO HEARING IMPAIRED?NO VISION IMPAIRED?YES : LEGALLY BLIND COGNITIVELY IMPAIRED?NO READINESS TO LEARN?YES LEARNING PREFERENCES?NO LEARNING CAPABILITIES PRESENT?YES EMOTIONAL BARRIERS?NO SPECIAL DEVICES?NO BUILDING CLEANER NEEDED?NO DOMESTIC VIOLENCE NONE. OCCUPATION: [employer] - DISABLED. DIET: REGULAR. EXERCISE: NO REGULAR EXERCISE. MARITAL STATUS: SINGLE, .. OTHERS AT HOME: OTHER NON-RELATIVE, CHILDREN. - HAS THE PATIENT BEEN EDUCATED REGARDING HIS/HER PLAN OF CARE?YES HAS THE PATIENT BEEN EDUCATED REGARDING PAIN, THE RISK FOR PAIN, THE IMPORTANCE OF EFFECTIVE PAIN MANAGEMENT, AND THE PAIN ASSESSMENT PROCESS?YES ADVANCE DIRECTIVE ADVANCE DIRECTIVE DISCUSSED WITH PATIENT:YES PT DOES NOT HAVE ANY ADVANCED DIRECTIVES AND DECLINES ANY INFORMATION ON HCP AT THIS TIME. UNABLE TO VERIFY SOCIAL HISTORY DUE TO A KNOWN GLITCH IN THE SYSTEM. AD. REVIEW OF SYSTEMS GLAUCOMA: NOTHYROID DISEASE: YES, HYPOTHYROIDISMHYPERTENSION: NOHEART DISEASE: NOLUNG DISEASE: NODIABETES: NOGI DISEASE: HISTORY OF GERD, EOSINOPHILIC ESOPHAGITISLIVER DISEASE: NO KIDNEY DISEASE: NOSTEROID USE: NONEUROLOGICAL DISEASE: NOBACK PROBLEMS: YES, PAINEXTREMITIES: YES, PAINGENITOURINARY: URINARY INCONTINENCEBLEEDING DISORDER: NOASA CLASS: IIAIRWAY CLASS: II. VITAL SIGNS WT 242.0 LBS, HT 5'3'', BMI 42.86 INDEX, BP 148/71 MM HG, HR 83 /MIN, RR 18 /MIN, TEMP 98.4 F, OXYGEN SAT % 97%, SAFE IN ENV? (Y/N) YES, REVIEWED BY: Jeremiah BLANCO RN. EXAMINATION GENERAL: THE PATIENT IS ALERT, ORIENTED TIMES THREE AND COOPERATIVE. LUNGS ARE CLEAR TO AUSCULTATION. HEART SHOWS REGULAR RHYTHM, NO MURMURS AND NO GALLOPS. SEVERE TENDNESS AND PAIN OVER THE RIGHT ARM. SHE CANNOT MOVE IT. SHE CAN MOVE THE RIGHT ELBOW WITH SOME DIFFCULTY BUT SHE CANNOT MOVE THE RIGHT SHOUDLER. HAND TEMPLE MARKER OVER THE RIGHT SIDE IS TENDERNESS OVER THE NECK AND RIGHT SHOULDER. ASSESSMENTS PAIN IN RIGHT SHOULDER - M25.511 (PRIMARY) URINARY INCONTINENCE, UNSPECIFIED TYPE - R32 EOSINOPHILIC ESOPHAGITIS - K20.0, HISTORY NEURALGIA OF RIGHT UPPER EXTREMITY - M79.2 HISTORY OF MULTIPLE ALLERGIES - Z91.89 LEFT SHOULDER PAIN, UNSPECIFIED CHRONICITY - M25.512 TREATMENT PAIN IN RIGHT SHOULDER START CEPHALEXIN CAPSULE, 500 MG, DIRECTED, ORALLY, BID, 10 DAYS, 20, REFILLS 0 [facility] MRI SPINE, CERVICAL WITHOUT [id number] CLINICAL NOTES: I DISCUSSED ALTERNATIVES WITH MS. HARPER. THE PATIENT IS HAVING NEW SYMPTOMS THAT STARTED A MONTH AGO. SHE IS GOING TO BE EVALUATED BY AN ORTHOPEDIC SURGEON. I WILL NOT MOVE FORWARD WITH THE TRIAL UNTIL THE PATIENT HAS NEW IMAGING STUDIES IN THE NECK AREA. TO MOVE FORWARD WITH THE TRIAL, I WILL NEED A NEW CERVICAL MRI IN VIEW OF THIS NEW SYMPTOMS. SO I WILL REQUEST AUTHORIZATION FOR A NEW MRI. I WILL MAKE A FURTHER DECISION BASED ON THE RESULTS OF THE MRI SO I CAN SEE IF THE EPIDURAL SPACE HAS CHANGED TO SEE IF I CAN STILL PASS THE LEADS. I WILL POSTPONE THE TRIAL UNTIL I SEE THAT MRI. I WILL FOLLOW UP WITH IN 6 WEEKS TO DISCUSS THAT MRI. THE PATIENT REPORTS UNDERSTANDING AND AGREES. I, GEOVANY MASSEY, DOCUMENTED THE ABOVE INFORMATION ACTING A SCRIBE FOR DR. IBARRA. I HAVE REVIEWED THE ABOVE DOCUMENT, WRITTEN BY GEOVANY MASSEY, [employer] EMPLOYMENT COORDINATOR, AND I VERIFY THAT IT IS ACCURATE. . PROCEDURE CODES FA211 ESTABILISHED PATIENT [facility] CHARGE [address] OFFICE/OUTPATIENT VISIT EST DISPOSITION & COMMUNICATION FOLLOW UP CANCEL LEAD PULL, F/UP 6 WEEKS (REASON: REQEUST AUTH FOR CERVICAL MRI) ELECTRONICALLY SIGNED BY WALDO IBARRA MD, MD ON 04/01/2021 AT 10:08 AM EDT DISCLAIMER : THIS IS A VISIT SUMMARY EXTRACTED FROM THE [employer] CHART. IT IS NOT A COPY OF THE [employer] PROGRESS NOTE. ARACELI
== END ==
LOC: M PAIN 12:40
PROVIDERS: ATTEND Anesthesiology
DX: M25.511 Pain in right shoulder (principal); G89.29 Other chronic pain; R32 Unspecified urinary incontinence; K20.0 Eosinophilic esophagitis; M79.2 Neuralgia and neuritis, unspecified; Z91.89 Other specified personal risk factors, not elsewhere classified; M25.512 Pain in left shoulder; G43.909 Migraine, unspecified, not intractable, without status migrainosus; E03.9 Hypothyroidism, unspecified; Z86.14 Personal history of Methicillin resistant Staphylococcus aureus infection; Z88.5 Allergy status to narcotic agent; Z88.8 Allergy status to other drugs, medicaments and biological substances; E66.01 Morbid (severe) obesity due to excess calories; Z68.41 Body mass index [BMI] 40.0-44.9, adult; Z79.899 Other long term (current) drug therapy

== ENCOUNTER → 2021-05-18 | Outpatient (CLI) | payer OTHER, BC ==
--- NOTE | 2021-05-22 23:31 | ECWPNPC ---
PATIENT NAME: SHARAD HARPER : 1975 GENDER: FEMALE VISIT DATE: 05/18/2021 DISCHARGE DATE: 05/18/21 1610 VISIT LOCKED DATE TIME: PHYSICIAN: WALDO IBARRA MD RESOURCE: WALDO IBARRA MD REASON FOR APPOINTMENT 1. REVIEW CERVICAL MRI HISTORY OF PRESENT ILLNESS GENERAL: 45-YEAR-OLD FEMALE PATIENT WITH A HISTORY OF CHRONIC RIGHT SHOULDER PAIN. SHE IS SUFFERING FROM A WORK RELATED INJURY THAT OCCURRED IN 2013 WHEN SHE WAS WORKING WITH THE [employer]. WE HAVE BEEN WORKING HER UP FOR SPINAL COLUMN STIMULATOR TRIAL THAT WE PUT ON HOLD WHEN SHE DEVELOPED SYMPTOMS IN OTHER AREAS OF HER BODY. THE PATIENT DESCRIBES THE PAIN ACHING, BURNING AND CONTINUOUS WITH A PAIN SCORE RANGING FROM 7-10/10 OVER THE RIGHT SHOULDER AND RIGHT UPPER EXTREMITY. THE PAIN INCREASES WITH ACTIVITIES. SHE CANNOT USE HER RIGHT ARM AT THE MOMENT,. FALL RISK SCREENING: SCREENING : NO FALLS REPORTED IN THE LAST YEAR. PAIN SCREENING: PATIENT HAS A COMPLAINT OF ACUTE OR CHRONIC PAIN :YES LOCATION OF PAIN:NECK, LEFT SHOULDER, RIGHT SHOULDER RIGHT GREATER THAN LEFT INTENSITY OF PAIN (SCALE OF 1 TO 10):8 AVERAGE 7-8/10 WHAT DOES YOUR PAIN FEEL LIKE:ACHING, BURNING, CONTINOUS, SHARP, STABBING, TENDER, THROBBING, SORE, SHOOTING DURATION:CONTINOUS, CONSTANT, AWAKENS FROM SLEEP PAIN IS INCREASED BY:ACTIVITIES, OTHERS SITTING IN THE SUN, HEAT AND COLD INTOLERANCE, POSITION OF SLEEP PAIN IS DECREASED BY:OTHERS NOTHING PAIN HAS INTERFERED WITH THE FOLLOWING: EVERYTHING NURSING NOTE: -. PAIN CENTER INTAKE QUESTIONS: DO YOU HAVE A HISTORY OF MRSA? :YES YEARS AGO IN RIGHT BREAST DO YOU TAKE A BLOOD THINNERS? :NO DO YOU HAVE ANY BLEEDING DISORDERS? :NO ANY NEW NUMBNESS OR WEAKNESS IN YOUR LEGS OR ARMS? :NO ANY PACEMAKER,DEFIBRILLATOR, OR DORSAL COLUMN STIMULATOR? :NO DO YOU HAVE ANY RASHES OR OPEN SORES? :NO ARE YOU ALLERGIC TO IV DYE? :NO ARE YOU DIABETIC? :NO ANY NEW PROBLEMS WITH YOUR MEDICATIONS? :NO HAVE YOU RECEIVED A VACCINE IN THE PAST 30 DAYS? :NO DO YOU PLAN TO RECEIVE A VACCINE IN THE NEXT 21 DAYS? :NO DO YOU NEED ANY PRESCRIPTION? :YES GABAPENTIN DO YOU TAKE ANY IMMUNOSUPPRESSIVE MEDICATIONS? :NO DO YOU HAVE ANY KIDNEY OR LIVER DISEASE? :NO IS THERE A CHANCE YOU COULD BE ? :NO ARE YOU BREAST FEEDING? :NO CURRENT MEDICATIONS TAKING METOPROLOL-HYDROCHLOROTHIAZIDE 50-25 MG TABLET 1 TABLET WITH A MEAL ORALLY ONCE A DAY TAKING LEVOTHYROXINE SODIUM 175 MCG TABLET 1 TABLET ON AN EMPTY STOMACH IN THE MORNING ORALLY ONCE A DAY TAKING ACETAMINOPHEN 325 MG CAPSULE 1 CAPSULE NEEDED ORALLY EVERY 4 HRS TAKING SIMVASTATIN 40 MG TABLET 1 TAB ORALLY DAILY TAKING IBUPROFEN 200 MG TABLET 3 TABS ORALLY NEEDED FOR MIGRAINE HEADACHES TAKING GRACE NATURAL PAIN RELIEVING 3-3 % GEL DIRECTED EXTERNALLY TAKING ICY HOT 7.5 % (ROLL) MISCELLANEOUS 1 APPLICATION NEEDED EXTERNALLY THREE TIMES A DAY TAKING GABAPENTIN 100 MG CAPSULE 1 CAPSULE ORALLY FOR PAIN ONCE A DAY AT NIGHT NOT-TAKING CEPHALEXIN 500 MG CAPSULE DIRECTED ORALLY BID NOT-TAKING NORTRIPTYLINE HCL 25 MG CAPSULE 1 CAPSULE ORALLY ONCE A DAY, NOTES: DUE TO MAKING THOAT FEEL TIGHT NOT-TAKING PENNSAID 2 % SOLUTION 2 PUMPS TRANSDERMAL TWICE A DAY FOR PAIN NOT-TAKING DICLOFENAC SODIUM 1.5 % SOLUTION 40 DROPS TRANSDERMAL NEEDED FOR PAIN THREE TIMES DAILY NOT-TAKING PREGABALIN 25 MG CAPSULE 1 CAPSULE ORALLY FOR PAIN BID MDD2 NOT-TAKING OMEPRAZOLE 40 MG CAPSULE DELAYED RELEASE 1 CAPSULE ORALLY BID NOT-TAKING TOPIRAMATE ER _ CAPSULE EXTENDED RELEASE 24 HOUR 1 CAPSULE ORALLY ONCE A DAY NOT-TAKING VOLTAREN 1 % GEL 1 STRIP TRANSDERMAL AT RIGHT SHOULDER THREE TIMES DAILY NEEDED FOR PAIN NOT-TAKING CARAFATE 1 GM TABLET 1 TABLET ON AN EMPTY STOMACH ORALLY DAILY, NOTES: CURRENTLY OUT OF NOT-TAKING IBUPROFEN 800 MG TABLET 1 TABLET WITH FOOD OR MILK NEEDED ORALLY FOR PAIN EVERY 8 HOURS NEEDED MDD2 NOT-TAKING DICLOFENAC SODIUM 75 MG TABLET DELAYED RELEASE 1 TABLET WITH FOOD OR MILK ORALLY PRN FOR PAIN TWICE A DAY MDD2 NOT-TAKING CELECOXIB 200 MG CAPSULE 1 CAPSULE WITH FOOD ORALLY FOR PAIN ONCE A DAY NOT-TAKING IBU 600 MG TABLET 1 TABLET ORALLY DAILY/PRN MEDICATION LIST REVIEWED AND RECONCILED WITH THE PATIENT PAST MEDICAL HISTORY SHINGLES MIGRAINE HEADACHES OBESITY ESOPHAGEAL REFLUX HYPOTHYROIDISM OVARIAN CYSTS HYPERLIPIDEMIA ABDOMINAL PAIN ESOPHAGEAL REFLUX HEMATURIA UTI ATYPICAL CP NAUSEA VOMITING BLOOD CLOTS AND KNICKED AORTA WITH HEMORRHAGE WITH EOSINOPHILIC ESOPHAGITIS [id number] VIRUS LEGALLY BLIND RIGHT SHOULDER PAIN NEURALGIA LEFT SHOULDER PAIN NECK PAIN ALLERGIES OXYCONTIN: SHORTNESS OF BREATH - ALLERGY OXYCODONE HCL: ANAPHYLAXIS - ALLERGY NORTRIPTYLINE HCL: THROAT FELT LIKE IT WAS CLOSING - ALLERGY SURGICAL HISTORY ENDOMETRIOSIS -3X ADHESIONS , 12 POLYPS REMOVED ENDOSCOPY 1998 2011 COLONOSCOPY 2012 HYSTERECTOMY 2011 LEFT BUNIONECTOMY 1098 CHOLECYSTECTOMY 2013 ANAL FISSURE REPAIR OF NASAL FRACTURE 1986 PART OF RIGHT GREAT TOENAIL REMOVED 08/2020 FAMILY HISTORY FATHER: ALIVE 65 YRS, DIABETES, DIAGNOSED WITH HYPERTENSION, DIABETES MOTHER: 64 YRS, BREAST CANCER, DIAGNOSED WITH HYPERTENSION, DIABETES, OTHER MALIGNANT NEOPLASM OF UNSPECIFIED SITE PATERNAL GRAND FATHER: PATERNAL GRAND MOTHER: 75 YRS, ALZHEIMER'S DEMENTIA MATERNAL GRAND FATHER: MATERNAL GRAND MOTHER: 72 YRS, HEART ATTACK 2 BROTHER(S) , 1 SISTER(S) - HEALTHY. 2 SON(S) , 1 DAUGHTER(S) - HEALTHY. SOCIAL HISTORY GENERAL: TOBACCO USE ARE YOU A:NONSMOKER LATEX QUESTIONNAIRE LATEX ALLERGY : HAVE YOU EVER DEVELOPED ANY TYPE OF REACTION AFTER HANDLING LATEX PRODUCTS SUCH RUBBER GLOVES, CONDOMS, DIAPHRAGMS, BALLOONS, SOCKS, OR UNDERWEAR?NO LATEX ALLERGY : HAVE YOU EVER DEVELOPED ANY TYPE OF REACTION DURING OR AFTER DENTAL APPOINTMENT, VAGINAL/RECTAL EXAMINATION, SURGICAL PROCEDURE, OR ANY OTHER EXPOSURE?NO LATEX RISK : HAVE YOU EVER HAD ANY DIFFICULTY BREATHING OR HIVES AFTER EATING OR HANDLING ANY FRUITS, OR VEGETABLES; SUCH KIWI, BANANAS, STONE FRUITS, OR CHESTNUTSNO LATEX RISK : DO YOU HAVE A PREVIOUS PERSONAL HISTORY OF MORE THAN NINE SURGERIES, SPINA BIFIDA, OR REPEATED CATHERIZATIONS? YES - PLEASE INDICATE : > 9 SURGERIES LATEX RISK : ARE YOU FREQUENTLY EXPOSED TO LATEX PRODUCTS IN YOUR OCCUPATION?NO DATE ASKED : 05/18/2021 ALCOHOL USE: NO. BMI CARE GOAL FOLLOW-UP ABOVE NORMAL BMI FOLLOW-UPDIETARY MANAGEMENT EDUCATION, GUIDANCE, AND COUNSELING ALCOHOL SCREENING POINTS: 0, INTERPRETATION: NEGATIVE. RECREATIONAL DRUG USE DENIES. CAFFEINE 1-2/DAY. SEXUAL HX HAD SEX IN THE LAST 12 MONTHS (VAGINAL, ORAL, OR ANAL)?: YES, WITH: MEN ONLY, USE PROTECTION?: NO, HAVE YOU EVER HAD AN STD?: NO. SCIENTOLOGY [id number] RELIGIOUS LANGUAGE CUBAN. LEARNING BARRIERS / SPECIAL NEEDS CHANGE FROM LAST VISIT?NO BARRIERS TO LEARNING?NO HEARING IMPAIRED?NO VISION IMPAIRED?YES : LEGALLY BLIND COGNITIVELY IMPAIRED?NO READINESS TO LEARN?YES LEARNING PREFERENCES?NO LEARNING CAPABILITIES PRESENT?YES EMOTIONAL BARRIERS?NO SPECIAL DEVICES?NO SILVER LAP MACHINE TENDER NEEDED?NO DOMESTIC VIOLENCE NONE. OCCUPATION: [employer] - DISABLED. DIET: REGULAR. EXERCISE: NO REGULAR EXERCISE. MARITAL STATUS: SINGLE, .. OTHERS AT HOME: OTHER NON-RELATIVE, CHILDREN. - HAS THE PATIENT BEEN EDUCATED REGARDING HIS/HER PLAN OF CARE?YES HAS THE PATIENT BEEN EDUCATED REGARDING PAIN, THE RISK FOR PAIN, THE IMPORTANCE OF EFFECTIVE PAIN MANAGEMENT, AND THE PAIN ASSESSMENT PROCESS?YES ADVANCE DIRECTIVE ADVANCE DIRECTIVE DISCUSSED WITH PATIENT:YES PT DOES NOT HAVE ANY ADVANCED DIRECTIVES AND DECLINES ANY INFORMATION ON HCP AT THIS TIME. HOSPITALIZATION/MAJOR DIAGNOSTIC PROCEDURE SURGERIES REVIEW OF SYSTEMS CONSTITUTIONAL: ANY RECENT FEVER NO . CHILLS NO . WEIGHT CHANGE OF UNKNOWN REASONS NO . GASTROENTEROLOGY: NEW UNEXPLAINABLE CHANGES IN BOWEL CONTROL NO . CONSTIPATION NO . GENITOURINARY: ANY NEW CHANGE IN BLADDER CONTROL? NO . NEUROLOGY: NEW ONSET DIZZINESS OR NEUROLOGICAL CHANGES NOT MENTIONED NO . NEW NUMBNESS OR PAIN PATTERNS NOT MENTIONED AND PERTINENT TO TODAY'S VISIT NO . CARDIOLOGY: NEW CHEST PRESSURE NO . PATIENT DENIES NO . RESPIRATORY: UNEXPLAINABLE COUGH NO . NEW SHORTNESS OF BREATH NO . VITAL SIGNS WT 249.8 LBS, HT 5'3'', BMI 44.25 INDEX, BP 186/88 MM HG, REPEAT BP 130/72 MM HG, HR 105 /MIN, RR 16 /MIN, TEMP 98.8 F, OXYGEN SAT % 96%, SAFE IN ENV? (Y/N) Y, NA INITIALS RONNY CARROLL. EXAMINATION GENERAL: THE PATIENT IS ALERT, ORIENTED TIMES THREE AND COOPERATIVE. SHE CAN ABDUCT THE LEFT ARM BUT SHE CANNOT ABDUCT THE RIGHT ARM. THERE IS TENDERNESS OVER THE RIGHT SHOULDER. SHE CAN HARDLY MOVE THE RIGHT ARM. CERVICAL MRI DATED 04/26/2021 SHOWS BULGING DISC AT MULTIPLE LEVELS. 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 HARPER. WE NOW HAVE THE CERVICAL MRI. THE SYMPTOMS THAT SHE WAS HAVING IN THE LEFT UPPER EXTREMITY ARE RESOLVING. I WILL DISCUSS THIS MRI WITH THE RADIOLOGIST TO MAKE SURE I HAVE ENOUGH SPACE IN THE EPIDURAL SPACE TO PASS THE LEADS. I FEEL THAT AT THE MOMENT, BASED FROM WHAT I SEE IN THE REPORT THAT WE SHOULD BE OKAY. WE WILL SEE WHEN WE CAN ACCOMMODATE HER FOR THE TRIAL. SHE IS AWARE THAT AT THE MOMENT WE DO NOT HAVE NURSE PRACTITIONERS BUT WE WILL TRY TO DO THIS SOON WE CAN. SHE STATES THAT LATER IN JUNE WOULD BE BEST FOR HER TO COORDINATE WITH HER DAUGHTER. June OR . THE PATIENT REPORTS UNDERSTANDING AND AGREES WITH THE PLAN. I, GEOVANY MASSEY, DOCUMENTED THE ABOVE INFORMATION ACTING A SCRIBE FOR DR. IBARRA. I HAVE REVIEWED THE ABOVE DOCUMENT, WRITTEN BY GEOVANY MASSEY, MUD TEMPERER, AND I VERIFY THAT IT IS ACCURATE. PROCEDURES PN WORKMANS' COMP OPINION IN YOUR OPINION, WAS THE INCIDENT THAT THE PATIENT DESCRIBED THE COMPETENT MEDICAL CAUSE OF THIS INJURY/ILLNESS? YES ARE THE PATIENT'S COMPLAINTS CONSISTENT WITH HIS/HER HISTORY OF THE INJURY/ILLNESS? YES IS THE PATIENT'S HISTORY OF THE INJURY/ILLNESS CONSISTENT WITH YOUR OBJECTIVE FINDING? YES WHAT IS THE PERCENTAGE OF TEMPORARY IMPAIRMENT? MILD = 25% IS THE PATIENT WORKING? YES DOCTOR ON SITE: WALDO CHÁVEZ MD VISIT CODES PROCEDURE CODES FA211 ESTABILISHED PATIENT [facility] FACILITY CHARGE [id number] OFFICE/OUTPATIENT VISIT EST DISPOSITION & COMMUNICATION FOLLOW UP FIND OR TIME (REASON: BOOK DCS TRIAL, CHECK AUTH) ELECTRONICALLY SIGNED BY WALDO IBARRA MD, MD ON 05/22/2021 AT 07:50 PM EDT DISCLAIMER : THIS IS A VISIT SUMMARY EXTRACTED FROM THE [employer] CHART. IT IS NOT A COPY OF THE [employer] PROGRESS NOTE. MTDD
== END ==
LOC: M PAIN 14:45
PROVIDERS: ATTEND Anesthesiology
DX: M25.511 Pain in right shoulder (principal); G89.29 Other chronic pain; R32 Unspecified urinary incontinence; M79.2 Neuralgia and neuritis, unspecified; K20.0 Eosinophilic esophagitis; G43.909 Migraine, unspecified, not intractable, without status migrainosus; E03.9 Hypothyroidism, unspecified; Z91.89 Other specified personal risk factors, not elsewhere classified; Z86.14 Personal history of Methicillin resistant Staphylococcus aureus infection; Z88.5 Allergy status to narcotic agent; Z88.8 Allergy status to other drugs, medicaments and biological substances; E66.01 Morbid (severe) obesity due to excess calories; Z68.41 Body mass index [BMI] 40.0-44.9, adult; Z79.899 Other long term (current) drug therapy

== ENCOUNTER → 2021-07-21 | Outpatient (CLI) | payer OTHER, BC | LOC: M PAIN 10:15 | PROVIDERS: ATTEND Anesthesiology | DX: M25.511 Pain in right shoulder (principal); M79.2 Neuralgia and neuritis, unspecified; R32 Unspecified urinary incontinence; K20.0 Eosinophilic esophagitis; G43.909 Migraine, unspecified, not intractable, without status migrainosus; E03.9 Hypothyroidism, unspecified; Z91.89 Other specified personal risk factors, not elsewhere classified; Z86.14 Personal history of Methicillin resistant Staphylococcus aureus infection; Z88.5 Allergy status to narcotic agent; Z88.8 Allergy status to other drugs, medicaments and biological substances; E66.01 Morbid (severe) obesity due to excess calories; Z68.41 Body mass index [BMI] 40.0-44.9, adult; Z79.899 Other long term (current) drug therapy ==

== ENCOUNTER 2021-10-20 08:04 | Emergency (ER) | payer BC, OTHER ==
[2021-10-20] MEDS ORDERED: LEVO750T13 (08:20)
[2021-10-20] MEDS ORDERED: HYDR-3490 (08:20)
[2021-10-20] MEDS ORDERED: PRED10TA2 (08:20)
[2021-10-20] MEDS ORDERED: LOSA50TA28 (08:20)
[2021-10-20 09:31] LABS: ABG BASE EXCESS 2.5 (-2.0-2.0); ABG HCO3 24.8 MEQ/L (22.0-26.0); ABG O2 SATURATION 97.1 % (95.0-99.0); ABG PARTIAL PRESSURE CO2 31.9 mmHg (35.0-45.0); ABG PARTIAL PRESSURE O2 87.2 mmHg (75.0-100.0); ABG STANDARD HCO3 26.7 MEQ/L (22.0-26.0); ABG TOTAL CO2 25.8 MEQ/L (22.0-29.0); ABG pH (ARTERIAL) 7.509 UNITS (7.350-7.450)
[2021-10-20 10:01] VITALS: BP 134/75
== END 2021-10-20 10:35 | disposition home or self-care (01) ==
LOC: M ED 08:04
DX: R06.02 Shortness of breath (principal); R05.9 Cough, unspecified; R00.0 Tachycardia, unspecified; E78.5 Hyperlipidemia, unspecified; I10 Essential (primary) hypertension; Z88.5 Allergy status to narcotic agent; Z87.01 Personal history of pneumonia (recurrent); Z79.899 Other long term (current) drug therapy

== ENCOUNTER → 2022-04-03 | Outpatient (CLI) | payer BC ==
[~2022-04-03] MED LIST changes: +BARIUM SULFATE 700 MG TABLET (E-Z-DISK) As Ordered ONE; +E-Z-PAQUE 96% w/w SUSP 176GM BTL As Ordered ONE; +HYDR-3490; +LEVO750T13; +LOSA50TA28; +PRED10TA2; +VARIBAR NECTAR 40% w/v 240ML SUSP BTL As Ordered ONE; +VARIBAR PUDDING 40% w/v 230ML TUBE As Ordered ONE
== END ==
LOC: M RAD 09:52
PROVIDERS: ATTEND Otolaryngology
DX: R13.10 Dysphagia, unspecified (principal)

== ENCOUNTER → 2022-05-22 | Outpatient (CLI) | payer OTHER, BC ==
[~2022-05-22] MED LIST changes: -BARIUM SULFATE 700 MG TABLET (E-Z-DISK) As Ordered ONE; -E-Z-PAQUE 96% w/w SUSP 176GM BTL As Ordered ONE; +LEVO1TAB40; -LEVO750T13; -VARIBAR NECTAR 40% w/v 240ML SUSP BTL As Ordered ONE; -VARIBAR PUDDING 40% w/v 230ML TUBE As Ordered ONE
== END ==
LOC: M PAIN 10:00
PROVIDERS: ATTEND Anesthesiology
DX: M25.511 Pain in right shoulder (principal); G89.29 Other chronic pain; M79.2 Neuralgia and neuritis, unspecified; K20.0 Eosinophilic esophagitis; R32 Unspecified urinary incontinence; G43.909 Migraine, unspecified, not intractable, without status migrainosus; Z86.14 Personal history of Methicillin resistant Staphylococcus aureus infection; Z88.5 Allergy status to narcotic agent; Z88.8 Allergy status to other drugs, medicaments and biological substances; Z79.890 Hormone replacement therapy; Z79.899 Other long term (current) drug therapy

== ENCOUNTER → 2022-07-26 | Outpatient (CLI) | payer OTHER, BC | LOC: M PAIN 12:15 | PROVIDERS: ATTEND Anesthesiology | DX: M25.511 Pain in right shoulder (principal); G89.29 Other chronic pain; M79.2 Neuralgia and neuritis, unspecified; K20.0 Eosinophilic esophagitis; R32 Unspecified urinary incontinence; G43.909 Migraine, unspecified, not intractable, without status migrainosus; E03.9 Hypothyroidism, unspecified; Z91.89 Other specified personal risk factors, not elsewhere classified; Z86.14 Personal history of Methicillin resistant Staphylococcus aureus infection; Z88.5 Allergy status to narcotic agent; Z88.8 Allergy status to other drugs, medicaments and biological substances; Z79.890 Hormone replacement therapy; Z79.899 Other long term (current) drug therapy ==

== ENCOUNTER 2022-08-09 20:14 | Emergency (ER) | payer BC, OTHER ==
[~2022-08-09] VITALS: Ht 160 cm; Wt 114.9 kg
[2022-08-09] MEDS ORDERED: IBUP-1428 PO (20:25)
[2022-08-09 21:32] LABS: RSV AMPLIFICATION NEGATIVE (NEGATIVE)
[2022-08-09] MEDS ORDERED: LIDOCAINE 5% (LIDODERM) PATCH TD ONE (22:45)
[2022-08-09] MEDS ORDERED: KETOROLAC 30 MG/ML 1ML VIAL IV ONE (22:45)
[2022-08-09] MEDS ORDERED: methocarbamoL 750 MG TAB PO ONE (22:45)
[2022-08-09] MEDS ORDERED: ISOVUE-370 76% 100ML VIAL As Ordered ONE (23:02)
[2022-08-10 00:08] LABS: BASO % 0.4 % (0.0-1.0); EOS # 0.1 10^3/uL (0.0-0.5); EOS % 1.6 % (0.0-3.0); HEMATOCRIT 41.8 % (36.0-47.0); HEMOGLOBIN 13.7 g/dl (12.0-15.5); LYMPH # 2.5 10^3/uL (1.5-5.0); LYMPH % 35.8 % (24.0-44.0); MEAN CORPUSCULAR HEMOGLOBIN 28.1 pg (27.0-33.0); MEAN CORPUSCULAR HGB CONC 32.8 g/dl (32.0-36.5); MEAN CORPUSCULAR VOLUME 85.8 fl (80.0-96.0); MONO # 0.6 10^3/uL (0.0-0.8); MONO % 9.3 % (2.0-8.0); NEUTROPHILS # 3.6 10^3/uL (1.5-8.5); NEUTROPHILS % 51.7 % (36.0-66.0); PLATELET COUNT, AUTOMATED 191 10^3/uL (150-450); RED BLOOD COUNT 4.87 10^6/uL (4.00-5.40); WHITE BLOOD COUNT 6.9 10^3/uL (4.0-10.0)
[2022-08-10 00:25] LABS: ALBUMIN 3.8 G/DL (3.2-5.2); BILIRUBIN,DIRECT 0.1 MG/DL (<0.4); BILIRUBIN,TOTAL 0.6 MG/DL (0.3-1.2); TOTAL PROTEIN 7.3 G/DL (5.7-8.2)
[2022-08-10] MEDS ORDERED: KETOROLAC 60MG 2ML VIAL IM ONE (01:00)
[2022-08-10] MEDS ORDERED: METH-1165 PO (01:39)
[2022-08-10] MEDS ORDERED: MELO10CA2 PO (01:39)
[2022-08-10] MEDS ORDERED: FLON1SPR NARES (01:39)
[2022-08-10] MEDS ORDERED: HOLTER MONITOR XX ×2 (01:41→01:42)
[2022-08-10 01:58] VITALS: BP 134/74
== END 2022-08-10 02:00 | disposition home or self-care (01) ==
LOC: M ED 20:14
DX: R10.32 Left lower quadrant pain (principal); J01.90 Acute sinusitis, unspecified; H92.02 Otalgia, left ear; I10 Essential (primary) hypertension; F17.200 Nicotine dependence, unspecified, uncomplicated; Z88.5 Allergy status to narcotic agent; Z79.02 Long term (current) use of antithrombotics/antiplatelets; Z79.890 Hormone replacement therapy; Z79.899 Other long term (current) drug therapy
CPT/HCPCS: 36415; 74176; 80047; 80076; 81002; 83690; 85025; 87631; 99283; Q9967

== ENCOUNTER → 2022-10-25 | Outpatient (CLI) | payer OTHER, BC ==
[~2022-10-25] MED LIST changes: +FLON1SPR NARES; +HOLTER MONITOR XX; +IBUP-1428 PO; +MELO10CA2 PO; +METH-1165 PO
== END ==
LOC: M PAIN 09:30
PROVIDERS: ATTEND Anesthesiology
DX: M25.511 Pain in right shoulder (principal); M79.2 Neuralgia and neuritis, unspecified; E11.9 Type 2 diabetes mellitus without complications; G43.909 Migraine, unspecified, not intractable, without status migrainosus; E03.9 Hypothyroidism, unspecified; Z88.5 Allergy status to narcotic agent; Z88.8 Allergy status to other drugs, medicaments and biological substances; E66.01 Morbid (severe) obesity due to excess calories; Z68.42 Body mass index [BMI] 45.0-49.9, adult; Z79.84 Long term (current) use of oral hypoglycemic drugs; Z79.890 Hormone replacement therapy; Z79.899 Other long term (current) drug therapy

== ENCOUNTER → 2023-01-17 | Outpatient (CLI) | payer OTHER ==
[2023-01-17 11:59] LABS: ALBUMIN 3.6 G/DL (3.2-5.2); ALKALINE PHOSPHATASE 107 U/L (46-116); ALT/SGPT 53 U/L (7.0-40); AST/SGOT 52 U/L (<34); BILIRUBIN,DIRECT 0.2 MG/DL (<0.4); BILIRUBIN,TOTAL 0.6 MG/DL (0.3-1.2); IRON (FE) 54 UG/DL (50-170); TOTAL IRON BINDING CAPACITY 317 UG/DL (250-425); TOTAL PROTEIN 7.2 G/DL (5.7-8.2)
[2023-01-17 12:18] LABS: HEPATITIS B SURFACE ANTIGEN NEGATIVE (NEGATIVE)
[2023-01-17 12:40] LABS: HEPATITIS B CORE ANTIBODY IGM NEGATIVE (NEGATIVE)
[2023-01-19 16:09] LABS: ANCA-ATYPICAL <1:20 titer (Neg:<1:20); ANTI-MITOCHONDRIAL ANTIBODY <20.0 Units (0.0-20.0); ANTINUCLEAR ANTIBODIES DIRECT Negative (Negative); CERULOPLASMIN 27.1 mg/dL (19.0-39.0); CYTOPLASMIC NEUTROP AB ANCA-C <1:20 titer (Neg:<1:20); LIVER-KIDNEY MICROSOMAL ABY <20.1 Units (0.0-20.0); PERINUCLEAR AB ANCA-P <1:20 titer (Neg:<1:20)
== END ==
LOC: M RAD 08:58
PROVIDERS: ATTEND Internal Medicine Gastroenterology
DX: K21.9 Gastro-esophageal reflux disease without esophagitis (principal); R94.5 Abnormal results of liver function studies; R16.2 Hepatomegaly with splenomegaly, not elsewhere classified; K76.0 Fatty (change of) liver, not elsewhere classified; Z90.49 Acquired absence of other specified parts of digestive tract

== ENCOUNTER → 2023-01-29 | Outpatient (CLI) | payer OTHER, BC ==
[~2023-01-29] MED LIST changes: -HYDR-3490; +HYDR-3490 PO; +LEVA45AE INH; +LEVO175T2 PO; +METF-838 PO; +METF10004 PO; +PANT40TA29 PO; +SEMA0.257 SC; -SIMV40TA20; +SIMV40TA20 PO
== END ==
LOC: M PAIN 13:00
PROVIDERS: ATTEND Anesthesiology
DX: M25.511 Pain in right shoulder (principal); M79.2 Neuralgia and neuritis, unspecified; E11.9 Type 2 diabetes mellitus without complications; G43.909 Migraine, unspecified, not intractable, without status migrainosus; E03.9 Hypothyroidism, unspecified; Z88.5 Allergy status to narcotic agent; Z88.8 Allergy status to other drugs, medicaments and biological substances; Z79.84 Long term (current) use of oral hypoglycemic drugs; Z79.890 Hormone replacement therapy; Z79.899 Other long term (current) drug therapy

== ENCOUNTER 2023-03-01 07:27 | Day surgery (SDC) | payer BC, OTHER ==
[~2023-03-01] VITALS: Ht 160 cm; Wt 113.4 kg
[~2023-03-01 07:27] MED LIST changes: +NS 1,000 ML IV ONE
[2023-03-01] MEDS ORDERED: propofoL 200 MG/20 ML VIAL As Ordered ONE ×3 (08:58→09:18)
[2023-03-01] MEDS ORDERED: ONDANSETRON 4MG 2ML VIAL As Ordered ONE (08:58)
[2023-03-01] MEDS ORDERED: ESMOLOL INJ 100MG/10ML VIAL As Ordered ONE (09:12)
[2023-03-01 09:36] VITALS: TEMP 96.7
[2023-03-01 10:05] VITALS: BP 133/68; O2SAT 94
== END 2023-03-01 10:07 | disposition home or self-care (01) ==
LOC: M OPP 07:27
PROVIDERS: ATTEND Internal Medicine Gastroenterology
DX: K92.1 Melena (principal); R19.7 Diarrhea, unspecified; K64.8 Other hemorrhoids; R13.10 Dysphagia, unspecified; R12 Heartburn; K76.0 Fatty (change of) liver, not elsewhere classified
CPT/HCPCS: 43239; 45380; 88305; J2405

== ENCOUNTER → 2023-05-17 | Outpatient (CLI) | payer OTHER, BC ==
[~2023-05-17] MED LIST changes: -NS 1,000 ML IV ONE
== END ==
LOC: M PAIN 13:00
PROVIDERS: ATTEND Anesthesiology
DX: M79.2 Neuralgia and neuritis, unspecified (principal); M25.511 Pain in right shoulder; G89.29 Other chronic pain; G43.909 Migraine, unspecified, not intractable, without status migrainosus; E03.9 Hypothyroidism, unspecified; Z88.5 Allergy status to narcotic agent; Z88.8 Allergy status to other drugs, medicaments and biological substances; E66.01 Morbid (severe) obesity due to excess calories; Z68.42 Body mass index [BMI] 45.0-49.9, adult; Z79.890 Hormone replacement therapy; Z79.899 Other long term (current) drug therapy

== ENCOUNTER → 2023-08-08 | Outpatient (CLI) | payer OTHER, BC | LOC: M PAIN 09:00 | PROVIDERS: ATTEND Anesthesiology | DX: M25.511 Pain in right shoulder (principal); M79.10 Myalgia, unspecified site; M79.2 Neuralgia and neuritis, unspecified; Z86.14 Personal history of Methicillin resistant Staphylococcus aureus infection; Z80.3 Family history of malignant neoplasm of breast; Z88.5 Allergy status to narcotic agent; Z88.8 Allergy status to other drugs, medicaments and biological substances; E66.01 Morbid (severe) obesity due to excess calories; Z68.42 Body mass index [BMI] 45.0-49.9, adult; Z79.84 Long term (current) use of oral hypoglycemic drugs; Z79.85 Long-term (current) use of injectable non-insulin antidiabetic drugs; Z79.899 Other long term (current) drug therapy ==

== ENCOUNTER → 2023-11-07 | Outpatient (CLI) | payer OTHER, BC | LOC: M PAIN 09:15 | PROVIDERS: ATTEND Anesthesiology | DX: M25.511 Pain in right shoulder (principal); M79.2 Neuralgia and neuritis, unspecified; M79.10 Myalgia, unspecified site; G43.909 Migraine, unspecified, not intractable, without status migrainosus; E66.9 Obesity, unspecified; K21.9 Gastro-esophageal reflux disease without esophagitis; E03.9 Hypothyroidism, unspecified; E78.5 Hyperlipidemia, unspecified; Z68.41 Body mass index [BMI] 40.0-44.9, adult; Z88.5 Allergy status to narcotic agent; Z88.8 Allergy status to other drugs, medicaments and biological substances; Z79.84 Long term (current) use of oral hypoglycemic drugs; Z79.890 Hormone replacement therapy; Z79.899 Other long term (current) drug therapy ==

== ENCOUNTER → 2024-03-06 | Outpatient (CLI) | payer OTHER ==
[~2024-03-06] VITALS: Ht 165.1 cm; Wt 78.1 kg
[~2024-03-06] MED LIST changes: +TRIAMCINOLONE ACETONIDE SUSP 40MG/ML 1ML VIAL As Ordered ONE
[2024-03-06 09:30] VITALS: TEMP 97.9
[2024-03-06 11:15] VITALS: BP 160/77; O2SAT 96
== END ==
LOC: M IRPRO 09:05
PROVIDERS: ATTEND Anesthesiology
DX: M79.18 Myalgia, other site (principal); M25.511 Pain in right shoulder
CPT/HCPCS: 20610; J0665; J3301

== ENCOUNTER → 2024-05-14 | Outpatient (CLI) | payer OTHER ==
[~2024-05-14] MED LIST changes: -TRIAMCINOLONE ACETONIDE SUSP 40MG/ML 1ML VIAL As Ordered ONE
== END ==
LOC: M PAIN 08:30
PROVIDERS: ATTEND Anesthesiology
DX: M25.511 Pain in right shoulder (principal); M25.512 Pain in left shoulder; M54.2 Cervicalgia; M79.2 Neuralgia and neuritis, unspecified; G43.909 Migraine, unspecified, not intractable, without status migrainosus; E66.9 Obesity, unspecified; K21.9 Gastro-esophageal reflux disease without esophagitis; E03.9 Hypothyroidism, unspecified; E78.5 Hyperlipidemia, unspecified; H54.8 Legal blindness, as defined in USA; Z68.42 Body mass index [BMI] 45.0-49.9, adult; Z79.890 Hormone replacement therapy; Z79.899 Other long term (current) drug therapy; Z88.5 Allergy status to narcotic agent; Z88.8 Allergy status to other drugs, medicaments and biological substances

== ENCOUNTER → 2024-08-06 | Outpatient (CLI) | payer OTHER | LOC: M PAIN 09:15 | PROVIDERS: ATTEND Anesthesiology | DX: M25.511 Pain in right shoulder (principal); M79.2 Neuralgia and neuritis, unspecified; M79.601 Pain in right arm; E11.9 Type 2 diabetes mellitus without complications; G43.909 Migraine, unspecified, not intractable, without status migrainosus; E66.9 Obesity, unspecified; K21.9 Gastro-esophageal reflux disease without esophagitis; E03.9 Hypothyroidism, unspecified; E78.5 Hyperlipidemia, unspecified; H54.8 Legal blindness, as defined in USA; Z79.84 Long term (current) use of oral hypoglycemic drugs; Z79.890 Hormone replacement therapy; Z79.899 Other long term (current) drug therapy; Z88.5 Allergy status to narcotic agent; Z88.8 Allergy status to other drugs, medicaments and biological substances; Z68.41 Body mass index [BMI] 40.0-44.9, adult ==

== ENCOUNTER → 2024-11-18 | Outpatient (CLI) | payer OTHER | LOC: M PAIN 11:00 | PROVIDERS: ATTEND Anesthesiology | DX: M25.511 Pain in right shoulder (principal); M79.2 Neuralgia and neuritis, unspecified; Z79.84 Long term (current) use of oral hypoglycemic drugs; Z79.85 Long-term (current) use of injectable non-insulin antidiabetic drugs; Z79.899 Other long term (current) drug therapy; Z80.8 Family history of malignant neoplasm of other organs or systems; Z88.5 Allergy status to narcotic agent; Z88.8 Allergy status to other drugs, medicaments and biological substances ==